=== PATIENT | male | born 1945 | race American Indian/Alaskan Native ===

== ENCOUNTER 2016-07-01 09:12 | Inpatient (IN) | payer MEDICARE, OTHER ==
--- NOTE | 2016-07-01 09:45 | Event Note ---
Date: 07/01/16 Patient presents to the ER with left upper quadrant and epigastric discomfort, and nausea. No diaphoresis. Currently no active vomiting. Physical exam unremarkable. EKG morphological abnormal, suggesting left bundle branch block, does not meet Sgarbarossa CRITERIA for STEMI. EKG was transmitted to center director, Dr. Dunn, who agrees that patient does not meet criteria for emergent activation of [employer]. Patient walking around the waiting room without distress, clinically appears very well. Laboratory studies, X RAY of the chest are ordered Patient does not know if these had a history of left bundle-branch block in the past. Typically follows at the [facility] Vital Signs 07/01/16 09:25 Temperature 97.7 F Pulse Rate 110 H Respiratory 20 Rate Blood Pressure 106/79 O2 Sat by Pulse 96 Oximetry
[2016-07-01 09:47] LABS: Basophils % (Auto) 0.2 % (0.0-1.8); Eosinophils % (Auto) 0.1 % (0.0-4.3); Hematocrit 52.5 % (35.5-45.6); Hemoglobin 17.6 gm/dl (11.8-15.2); Mean Corpuscular HGB Conc 34 % (32-34); Mean Corpuscular Hemoglobin 31 pg (28-32); Mean Corpuscular Volume 91 fl (84-94); Platelet Count 325 K/mm3 (140-440); Red Blood Count 5.76 M/mm3 (3.65-5.03); Red Cell Distribution Width 14.7 % (13.2-15.2); White Blood Count 7.9 K/mm3 (4.5-11.0)
[2016-07-01 10:01] LABS: INR 1.01 (0.87-1.13)
[2016-07-01 10:03] LABS: Creatine Kinase MB 4.3 ng/mL (0.0-4.0)
[2016-07-01 10:05] LABS: Alanine Aminotransferase 63 units/L (7-56); Alkaline Phosphatase 86 units/L (35-129); Anion Gap 28 mmol/L; Bilirubin,Total 0.6 mg/dL (0.1-1.2); Blood Urea Nitrogen 28 mg/dL (9-20); Calcium 10.5 mg/dL (8.4-10.2); Carbon Dioxide 22 mmol/L (22-30); Chloride 90.9 mmol/L (98-107); Creatine Kinase 82 units/L (55-170); Glucose 233 mg/dL (75-100); Potassium 4.6 mmol/L (3.6-5.0); Sodium 136 mmol/L (137-145); Total Protein 8.9 g/dL (6.3-8.2)
--- NOTE | 2016-07-01 10:21 | XRay Report ---
ROUTINE CHEST, TWO VIEWS: HISTORY: chest pain. The trachea, heart, mediastinal contour, lung singh and bony thorax are unremarkable. IMPRESSION: Unremarkable chest x-ray.
[2016-07-01 10:49] LABS: Albumin 4.6 g/dL (3.9-5); Albumin/Globulin Ratio 1.1 %
[2016-07-01] MEDS ORDERED: MORPHINE IV ONE (15:56)
[2016-07-01] MEDS ORDERED: NACL 0.9% 1000 ML 1,000 ML IV ONE (15:56)
[2016-07-01] MEDS ORDERED: BABY ASPIRIN PO ONE (15:56)
[2016-07-01] MEDS ORDERED: PROTONIX IV ONE (15:56)
[2016-07-01] MEDS ORDERED: ZOFRAN IV ONE (15:56)
--- NOTE | 2016-07-01 15:56 | Emergency Department Report ---
HPI - General Chief Complaint: Chest Pain Time Seen by Provider: 07/01/16 15:54 - HPI HPI: The patient is a 71-year-old male who presents for evaluation of chest pain. The patient reports chest pain for the past 22 hours, constant since onset, 9/ 10 in severity, pressure-like in quality, midsternal in location. He also reports multiple episodes of intractable nausea and vomiting for the past one day. The patient denies fever, dyspnea, syncope, hemoptysis, unilateral leg swelling, oral contraceptive use, recent immobilization, history of DVT or PE, recent cancer. ED Past Medical Hx - Past Medical History Hx Hypertension: Yes Hx Diabetes: Yes - Social History Smoking Status: Current Every Day Smoker Substance Use Type: Alcohol ED Review of Systems ROS: Stated complaint: CHEST PAIN/ZANDRA Other details as noted in HPI Constitutional: denies: fever ENT: denies: throat or neck pain Respiratory: denies: cough, shortness of breath Cardiovascular: reports chest pain Endocrine: denies unexplained weight loss or gain Gastrointestinal: denies: abdominal pain, nausea Genitourinary: denies: dysuria Musculoskeletal: denies: leg swelling Skin: denies: rash Neurological: denies: headache Hematological/Lymphatic: denies: easy bleeding or easy bruising Psych: denies sadness or hopelessness Physical Exam - Physical Exam Vital Signs: Vital Signs 07/01/16 09:25 Temperature 97.7 F Pulse Rate 110 H Respiratory 20 Rate Blood Pressure 106/79 O2 Sat by Pulse 96 Oximetry Physical Exam: General: well-nourished, well-developed, no acute distress Head: Normocephalic, atraumatic Eyes: normal sclera ENT: Mucous membranes are pale and dry Neck: No neck stiffness, no cervical adenopathy Respiratory: Breath sounds equal bilaterally, no wheezing, rales, or rhonchi Cardio: S1 and S2 present, no murmurs, rubs, gallops, capillary refill is delayed Abdomen: Normoactive bowel sounds, soft abdomen, no rigidity, no guarding or rebound tenderness Chest WALL/Back: No tenderness to palpation of the chest wall, no CVA tenderness with percussion Musc: No pitting edema Skin: No rash Neuro: no facial drooping, normal speech Psych: Normal affect ED Course Vital Signs 07/01/16 09:25 Temperature 97.7 F Pulse Rate 110 H Respiratory 20 Rate Blood Pressure 106/79 O2 Sat by Pulse 96 Oximetry ED Medical Decision Making - Lab Data Result diagrams: 07/01/16 09:36 07/01/16 09:36 - Medical Decision Making The patient was seen and examined by myself. The patient is placed on a equipment monitor phototypesetting and continuous pulse ox. On initial evaluation, the patient was found to be in no distress. Evaluation orders were placed. EKG exhibits left bundle branch block, not meeting Scarbossa's criteria. The patient is given 1 L normal saline fluid bolus for treatment of dehydration. X-ray of the chest is negative for acute cardiopulmonary disease process. Lab results reveal mildly elevated creatinine level of 2, elevated glucose, and elevated RBC, hemoglobin and hematocrit, consistent with hemoconcentration and exam findings of dehydration, and otherwise labs were grossly unremarkable including normal troponin level. The on-call hospitalist service was contacted. They agreed to admit the patient for further treatment and close monitoring. The ED admit order was placed. The patient was admitted in guarded condition. Critical care attestation.: If time is entered above; I have spent that time in minutes in the direct care of this critically ill patient, excluding procedure time. ED Disposition Clinical Impression: Acute chest pain, Acute hyperglycemia, Dehydration Acute renal failure Qualifiers: Acute renal failure type: unspecified Qualified Code(s): N17.9 - Acute kidney failure, unspecified Disposition: OP ADMITTED IP TO THIS HOSP Is pt being admited?: Yes Does the pt Need Aspirin: Yes Condition: Serious Time of Disposition: 15:55
--- NOTE | 2016-07-01 16:07 | Admit Criteria Form ---
Admission Criteria Documentation: CHEST PAIN Clinical Indications for Admission to Inpatient Care (Place 'X' for any and all applicable criteria): Admission is indicated for chest pain and ANY ONE of the following(1)(2)(3)(4)(5 ): [ ]I. Angina with acute coronary syndrome (Also use Myocardial Infarction or Angina guideline) [ ]II. Hemodynamic instability [ ]III. Angina needing acute intervention as indicated by ALL of the following( 11)(12): [ ]a) Unstable angina is present as indicated by angina that is ANY ONE of the following: [ ]i) New onset [ ]ii) Nocturnal [ ]iii) Prolonged at rest [ ]iv) Progressive [ ]b) Angina warrants acute intervention as indicated by ANY ONE of the following: [ ]i) Recurrent angina (e.g, not responding as previously to treatment) [ ]ii) Angina at rest or with low-level activities despite initial medical therapy [ ]iii) New or presumably new ST-segment depression on ECG [ ]iv) Signs or symptoms of heart failure (eg, dyspnea, pulmonary edema) [ ]v) New or worsening mitral regurgitation [ ]vi) Hemodynamic instability [ ]vii) Dangerous arrhythmia (eg, sustained ventricular tachycardia) [ ]viii) History of percutaneous coronary intervention within 6 months [ ]ix) History of coronary artery bypass graft surgery [ ]x) DOMINICK risk score of 2 or greater[A] [ ]xi) History of Diabetes(14) [ ]xii) High-risk cardiac ischemia findings on noninvasive testing (e.g, echocardiogram, treadmill testing, nuclear scan) [ ]xiii) Chronic renal insufficiency (ie, estimated GFR less than 60 mL/min/1.732m) [ ]xiv) Left ventricular ejection fraction less than 40% [ ]IV. Evidence of TX (eg, cardiac biomarkers positive, ST-segment elevation on ECG) also use Myocardial Infarction Criteria Form. [ ]V. Pulmonary edema [ ]. Respiratory distress [ ]VII. Chest pain indicative of serious diagnosis other than coronary artery disease (eg, aortic dissection) [ ]VIII. Contraindications and/or Inappropriate clinical situations for Observational Care in patients with Chest Pain, when ANY ONE of the following is required: [ ]a) Patient with risk factor for pulmonary embolism, acute coronary syndrome and myocardial infarction (18) [ ]b) Patient with Pulmonary embolism require an average LOS of 4.3 days, therefore emergency department observation management is inappropriate 18,23 [ ]c) Painful condition/s in the elderly, have the highest rate of recidivism after emergency department observation management (10.8%) 20,21,22 [ ]d) Elevated cardiac biomarker requires intensive and exhaustive care (19) [X ]IX. General contraindications and/or Inappropriate clinical situations for Observational Care in patients with Chest Pain, when ANY ONE of the following is required: [X ]a) Prediction of prolongation of LOS based on ANY ONE of the following may be considered as a contraindication for observational care 2, 3, 4, 5, 6, 7, 8, 9, 10, 11 [ X]i) Age > 65 yrs. [ ]ii) Patient arriving by ambulance [ ]iii) Patient with high acuity [ ]iv) Patient requiring vital sign monitoring [ ]v) Patient on IV medication [ ]b) Systolic blood pressures 180mmHg 3,12 [ ]c) Patient with altered mental status including delirium and other alteration of consciousness, (3) [ ]d) Patient whose discharge disposition will be to a correction home or rehabilitation home should not be managed in Emergency Department Observation Unit. CMS rule requires 3 days hospital stay before such placement. 3,13 [ ]e) Patient with failure to thrive due to broad array of etiologies 3,16,17 [ ]f) Inability to ambulate 3,14 Extended stay beyond goal length of stay may be needed for (1)(28): [ ]a) Specific condition diagnosed after evaluation (eg, pulmonary embolism, aortic dissection) [ ]b) Unstable angina [ ]c) Continued suspicion of acute coronary syndrome with inability to complete needed cardiac evaluation (eg, patient clinically unable to undergo stress testing) [ ]d) Myocardial infarction (Contents from ANGINA and CHEST PAIN clinical indications for admission to inpatient care have been integrated in this form) The original [employer] content created by [employer] has been revised. The portions of the content which have been revised are identified through the use of italic text or in bold, and [facility] [employer] has neither reviewed nor approved the modified material. All other unmodified content is copyright [employer]. Please see references footnoted in the original [facility] edition 2016 Admission Criteria Met: Yes
--- NOTE | 2016-07-01 17:49 | History and Physical Report ---
History of Present Illness Date of examination: 07/01/16 Date of admission: 07/01/2016 Chief complaint: L side CP since yesterday History of present illness: 71 y/o male comes in for L sided chest pain since yesterday.Chest pain dull in nature 6/10 intensity.Non radiating.Localized to precordium. No diaphoresis or SOB.No palpitations.No fever or Has HTN and [id number].No recent long travel.Has HTN and T2DM Past History Past Medical History: diabetes, hypertension Past Surgical History: No surgical history Social history: lives with family, smoking (1 ppd) Family history: hypertension Medications and Allergies Allergies Allergy/AdvReac Type Severity Reaction Status Date / Time No Known Allergies Allergy Unverified 07/01/16 09:31 Review of Systems All systems: negative Constitutional: no weight loss, no weight gain, no fever, no chills Ears, nose, mouth and throat: no nasal congestion, no nasal discharge, no sore throat, no odynophagia Cardiovascular: chest pain, high blood pressure, no orthopnea, no palpitations, no rapid/irregular heart beat, no edema, no syncope, no lightheadedness, no shortness of breath, no dyspnea on exertion, no leg edema, no decreased exercise tolerance Respiratory: no cough with sputum, no shortness of breath, no dyspnea on exertion, no congestion, no wheezing Gastrointestinal: no abdominal pain, no nausea, no vomiting, no diarrhea, no constipation, no hematemesis, no coffee ground emesis Genitourinary Male: no dysuria, no hematuria, no flank pain, no discharge, no urinary frequency, no urinary hesitancy Musculoskeletal: no neck stiffness, no neck pain Integumentary: no rash, no pruritis, no redness, no sores Neurological: no head injury, no seizures, no syncope Psychiatric: no anxiety, no depression Endocrine: no cold intolerance, no heat intolerance, no polyphagia, no polydipsia, no polyuria Hematologic/Lymphatic: no easy bruising Allergic/Immunologic: no urticaria, no allergic rhinitis, no wheezing Exam - Constitutional Vitals: Temp Pulse Resp BP Pulse Ox 97.7 F 95 H 16 130/77 94 07/01/16 09:25 07/01/16 16:15 07/01/16 16:48 07/01/16 16:15 07/01/16 16:15 General appearance: Present: no acute distress, well-nourished - EENT Eyes: Present: PERRL ENT: hearing intact, clear oral mucosa - Neck Neck: Present: supple, normal ROM - Respiratory Respiratory effort: normal Respiratory: bilateral: CTA - Cardiovascular Heart Sounds: Present: S1 & S2. Absent: rub, click - Extremities Extremities: pulses symmetrical, No edema Peripheral Pulses: within normal limits - Abdominal General gastrointestinal: Present: soft, non-tender, non-distended, normal bowel sounds Male genitourinary: Present: normal - Integumentary Integumentary: Present: clear, warm, dry - Musculoskeletal Musculoskeletal: gait normal, strength equal bilaterally - Psychiatric Psychiatric: appropriate mood/affect, intact judgment & insight - Neurologic Neurologic: CNII-XII intact, moves all extremities - Allied Health Allied health notes reviewed: nursing Results - Labs CBC & Chem 7: 07/02/16 05:30 07/02/16 05:30 Labs: Laboratory Last Values ED course: The patient is placed on a gre tutor and continuous pulse ox. On initial evaluation, the patient was found to be in no distress. Evaluation orders were placed. EKG exhibits left bundle branch block. The patient is given 1 L normal saline fluid bolus for treatment of dehydration. X-ray of the chest is negative for acute cardiopulmonary disease process. Lab results reveal mildly elevated creatinine level of 2, elevated glucose, and elevated RBC, hemoglobin and hematocrit, consistent with hemoconcentration and exam findings of dehydration, and otherwise labs were grossly unremarkable including normal troponin level. Critical care attestation.: If time is entered above; I have spent that time in minutes in the direct care of this critically ill patient, excluding procedure time. WBC 7.9 K/mm3 (4.5-11.0) 07/01/16 09:36 RBC 5.76 M/mm3 (3.65-5.03) H 07/01/16 09:36 Hgb 17.6 gm/dl (11.8-15.2) H 07/01/16 09:36 Hct 52.5 % (35.5-45.6) H 07/01/16 09:36 MCV 91 fl (84-94) 07/01/16 09:36 MCH 31 pg (28-32) 07/01/16 09:36 MCHC 34 % (32-34) 07/01/16 09:36 RDW 14.7 % (13.2-15.2) 07/01/16 09:36 Plt Count 325 K/mm3 (140-440) 07/01/16 09:36 Lymph % (Auto) 13.8 % (13.4-35.0) 07/01/16 09:36 Christian % (Auto) 7.5 % (0.0-7.3) H 07/01/16 09:36 Eos % (Auto) 0.1 % (0.0-4.3) 07/01/16 09:36 Baso % (Auto) 0.2 % (0.0-1.8) 07/01/16 09:36 Lymph # 1.1 K/mm3 (1.2-5.4) L 07/01/16 09:36 Christian # 0.6 K/mm3 (0.0-0.8) 07/01/16 09:36 Eos # 0.0 K/mm3 (0.0-0.4) 07/01/16 09:36 Baso # 0.0 K/mm3 (0.0-0.1) 07/01/16 09:36 Seg Neutrophils % 78.4 % (40.0-70.0) H 07/01/16 09:36 Seg Neutrophils # 6.2 K/mm3 (1.8-7.7) 07/01/16 09:36 PT 13.2 Sec. (12.2-14.9) 07/01/16 09:41 INR 1.01 (0.87-1.13) 07/01/16 09:41 Sodium 136 mmol/L (137-145) L 07/01/16 09:36 Potassium 4.6 mmol/L (3.6-5.0) 07/01/16 09:36 Chloride 90.9 mmol/L (98-107) L 07/01/16 09:36 Carbon Dioxide 22 mmol/L (22-30) 07/01/16 09:36 Anion Gap 28 mmol/L 07/01/16 09:36 BUN 28 mg/dL (9-20) H 07/01/16 09:36 Creatinine 2.0 mg/dL (0.8-1.5) H 07/01/16 09:36 Estimated GFR 40 ml/min 07/01/16 09:36 BUN/Creatinine Ratio 14.00 % 07/01/16 09:36 Glucose 233 mg/dL (75-100) H 07/01/16 09:36 Calcium 10.5 mg/dL (8.4-10.2) H 07/01/16 09:36 Total Bilirubin 0.6 mg/dL (0.1-1.2) 07/01/16 09:36 AST 21 units/L (5-40) 07/01/16 09:36 ALT 63 units/L (7-56) H 07/01/16 09:36 Alkaline Phosphatase 86 units/L (35-129) 07/01/16 09:36 Total Creatine Kinase 82 units/L (55-170) 07/01/16 09:36 CK-MB (CK-2) 4.3 ng/mL (0.0-4.0) H 07/01/16 09:36 CK-MB (CK-2) Rel Index 5.2 (0-4) H 07/01/16 09:36 Troponin T < 0.010 ng/mL (0.00-0.029) 07/01/16 09:36 NT-Pro-B Natriuret Pep 246.7 pg/mL (0-900) 07/01/16 15:57 Total Protein 8.9 g/dL (6.3-8.2) H 07/01/16 09:36 Albumin 4.6 g/dL (3.9-5) 07/01/16 09:36 Albumin/Globulin Ratio 1.1 % 07/01/16 09:36 Lipase 69 units/L (13-60) H 07/01/16 09:36 Short CBC 07/01/16 07/02/16 Range/Units 09:36 05:30 WBC 7.9 3.6 L (4.5-11.0) K/mm3 Hgb 17.6 H 15.0 (11.8-15.2) gm/dl Hct 52.5 H 45.3 D (35.5-45.6) % Plt Count 325 227 (140-440) K/mm3 BMP 07/01/16 07/02/16 09:36 05:30 Sodium 136 L 134 L Potassium 4.6 4.1 Chloride 90.9 L 93.2 L Carbon Dioxide 22 25 BUN 28 H 39 H Creatinine 2.0 H 1.8 H Glucose 233 H 119 H Calcium 10.5 H 9.4 Cardiac Enzymes 07/01/16 07/01/16 07/01/16 Range/Units 09:36 18:09 23:32 Total Creatine Kinase 82 81 80 (55-170) units/L CK-MB (CK-2) 4.3 H 5.4 H 4.7 H (0.0-4.0) ng/mL Troponin T < 0.010 < 0.010 < 0.010 (0.00-0.029) ng/mL Liver Function 07/01/16 07/02/16 Range/Units 09:36 05:30 Total Bilirubin 0.6 0.9 (0.1-1.2) mg/dL AST 21 15 (5-40) units/L ALT 63 H 37 (7-56) units/L Alkaline Phosphatase 86 65 (35-129) units/L Albumin 4.6 3.9 (3.9-5) g/dL - Imaging and Cardiology EKG: report reviewed (LBB block) Chest x-ray: report reviewed (NAF) Assessment and Plan Advance Directives: Yes (Full code) VTE prophylaxis?: Chemical (Lovenox 40 sq qd) Plan of care discussed with patient/family: Yes - Patient Problems (1) Acute chest pain Current Visit: Yes Status: Acute Plan to address problem: Chest pain protocol Serial cardiac enzymes and Lexiscan in AM (2) Acute renal failure Current Visit: Yes Status: Acute Qualifiers: Acute renal failure type: unspecified Qualified Code(s): N17.9 - Acute kidney failure, unspecified Plan to address problem: IV fluids for now (3) HTN (hypertension) Current Visit: Yes Status: Chronic Qualifiers: Hypertension type: essential hypertension Qualified Code(s): I10 - Essential (primary) hypertension Plan to address problem: Patient not on any antihypertensive.Resume anti hypertensives if BP goes up. 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
[2016-07-01] MEDS ORDERED: DULCOLAX PR PRN ×2 (17:50→17:53)
[2016-07-01] MEDS ORDERED: TYLENOL PO PRN ×2 (17:50→17:53)
[2016-07-01] MEDS ORDERED: ZOFRAN IV PRN (17:53)
[2016-07-01] MEDS ORDERED: MILK OF MAGNESIA PO PRN (17:53)
[2016-07-01] MEDS ORDERED: SODIUM CHLORIDE FLUSH SYRINGE 10 ML IV PRN (17:55)
[2016-07-01 18:57] LABS: Creatine Kinase MB 5.4 ng/mL (0.0-4.0)
[2016-07-01 18:58] LABS: Creatine Kinase 81 units/L (55-170)
[2016-07-02 00:05] LABS: Creatine Kinase MB 4.7 ng/mL (0.0-4.0)
[2016-07-02 00:06] LABS: Creatine Kinase 80 units/L (55-170)
[2016-07-02 06:16] LABS: Hematocrit 45.3 % (35.5-45.6); Mean Corpuscular HGB Conc 33 % (32-34); Mean Corpuscular Hemoglobin 31 pg (28-32); Mean Corpuscular Volume 93 fl (84-94); Platelet Count 227 K/mm3 (140-440); Red Cell Distribution Width 14.6 % (13.2-15.2); White Blood Count 3.6 K/mm3 (4.5-11.0)
[2016-07-02 06:37] LABS: Albumin 3.9 g/dL (3.9-5); Albumin/Globulin Ratio 1.1 %; BUN/Creatinine Ratio 21.66; Bilirubin,Total 0.9 mg/dL (0.1-1.2); Calcium 9.4 mg/dL (8.4-10.2); Chloride 93.2 mmol/L (98-107); Potassium 4.1 mmol/L (3.6-5.0); Total Protein 7.3 g/dL (6.3-8.2)
[2016-07-02 07:05] LABS: Anisocytosis 1+; Basophils % (Manual) 0 % (0.0-1.8); Blastocytes % (Manual) 0 %; Diff Status Complete
[2016-07-02] MEDS: ZOFRAN IV PRN (07:49)
[2016-07-02] MEDS ORDERED: LEXISCAN IV ONE ×2 (08:34→09:00)
[2016-07-02] MEDS: GLUCOTROL XL PO SCH (10:21)
[2016-07-02] MEDS: MILK OF MAGNESIA PO PRN (10:21)
[2016-07-02] MEDS: PERCOCET 5/325 PO PRN (12:29)
[2016-07-02] MEDS: NOVOLOG SUB-Q SCH ×3 (13:03→22:59)
--- NOTE | 2016-07-02 14:03 | XRay Report ---
ABDOMEN RADIOGRAPHS INDICATION: Abdominal distention. COMPARISON: None similar. FINDINGS: Frontal abdominal radiographs demonstrate air-containing small bowel loops dilated up to 4.1 cm caliber. Nonobstructive colonic pattern, where seen. No focal suspicious calcifications, pneumatosis or pneumoperitoneum. Right more than left basilar atelectasis. Intact bones. EKG leads. CONCLUSION: Small bowel obstruction and few other findings, as above. Thank you for the opportunity to participate in this patient's care.
--- NOTE | 2016-07-02 14:27 | Progress Note ---
Assessment and Plan Assessment and plan: (1) Acute chest pain Current Visit: Yes Status: Acute Plan to address problem: Chest pain protocol followed Lexiscan in AM was normal could be coming from SBO (2) Acute small bowel obstruction Current Visit: Yes Status: Acute Qualifiers: Acute renal failure type: unspecified Qualified Code(s): N17.9 - Acute kidney failure, unspecified Plan to address problem: IV fluids for now keep NPO, NG suction Discussed with surgery, and recommended to continue current conservative mx (3) HTN (hypertension) Current Visit: Yes Status: Chronic Qualifiers: Hypertension type: essential hypertension Qualified Code(s): I10 - Essential (primary) hypertension Plan to address problem: cont to monitor BP q shift (4) T2DM (type 2 diabetes mellitus) Current Visit: Yes Status: Chronic Qualifiers: Diabetes mellitus complication status: without complication Diabetes mellitus complication detail: D Diabetic retinopathy severity: D Proliferative retinopathy type: P Diabetes mellitus macular edema: D Diabetes mellitus shelter insulin use: D Laterality: L Chronic kidney disease stage: C Plan to address problem: SSI for now, as he will be NPO (5) Acute renal failure Current Visit: Yes Status: Acute Qualifiers: Acute renal failure type: unspecified Qualified Code(s): N17.9 - Acute kidney failure, unspecified Plan to address problem: IV fluids for now, Cr level improving (6) DVT prophylaxis Current Visit: Yes Status: Acute Plan to address problem: start on heparin History Interval history: Patient seen and examined. Medical records and medication list reviewed. No acute event overnight noted by the RN. Stress test was normal this morning Patient complains of abdominal pain and bloating. He did not have any bowel movement since Friday He is unable to eat anything because of nausea and abdominal bloating Abdominal XRY showed SBO Discussed plan of care at bedside with patient. Hospitalist Physical - Physical exam Narrative exam: GENERAL: The male lying on bed appeared to be in moderate discomfort. HEENT: Normocephalic. Atraumatic. No conjunctival congestion or icterus. Patient has moist mucous membranes. NECK: Supple. Trachea midline. CHEST/LUNGS: Clear to auscultated bilaterally, breathing nonlabored. No wheezes crackles or rhonchi. HEART/CARDIOVASCULAR: Regular in rate and rhythm. S1 and S2 positive. ABDOMEN: Abdomen is distended, tender. Patient has hyperactive bowel sounds. SKIN: There is no rash. Warm and dry. NEURO: No focal motor deficit. Follows command. MUSCULOSKELETAL: No joint effusion or tenderness. EXTRIMITY: No edema, no cyanosis or clubbing. PSYCH: Cooperative. - Constitutional Vitals: Temp Pulse Resp BP Pulse Ox 98.9 F 98 H 20 105/63 95 07/02/16 04:10 07/02/16 12:00 07/02/16 04:10 07/02/16 09:19 07/02/16 04:10 General appearance: Present: no acute distress, well-nourished Results - Labs CBC & Chem 7: 07/03/16 05:07 07/03/16 05:07 Labs: Laboratory Last Values WBC 3.6 K/mm3 (4.5-11.0) L 07/02/16 05:30 RBC 4.90 M/mm3 (3.65-5.03) 07/02/16 05:30 Hgb 15.0 gm/dl (11.8-15.2) 07/02/16 05:30 Hct 45.3 % (35.5-45.6) D 07/02/16 05:30 MCV 93 fl (84-94) 07/02/16 05:30 MCH 31 pg (28-32) 07/02/16 05:30 MCHC 33 % (32-34) 07/02/16 05:30 RDW 14.6 % (13.2-15.2) 07/02/16 05:30 Plt Count 227 K/mm3 (140-440) 07/02/16 05:30 Lymph % (Auto) 13.8 % (13.4-35.0) 07/01/16 09:36 [place] % (Auto) Tugboat Operator 07/02/16 05:30 Eos % (Auto) 0.1 % (0.0-4.3) 07/01/16 09:36 Baso % (Auto) 0.2 % (0.0-1.8) 07/01/16 09:36 Lymph # 1.1 K/mm3 (1.2-5.4) L 07/01/16 09:36 [place] # 0.6 K/mm3 (0.0-0.8) 07/01/16 09:36 Eos # 0.0 K/mm3 (0.0-0.4) 07/01/16 09:36 Baso # 0.0 K/mm3 (0.0-0.1) 07/01/16 09:36 Add Manual Diff Complete 07/02/16 05:30 Total Counted 100 07/02/16 05:30 Seg Neutrophils % 78.4 % (40.0-70.0) H 07/01/16 09:36 Seg Neuts % (Manual) 16.0 % (40.0-70.0) L 07/02/16 05:30 Band Neutrophils % 42.0 % 07/02/16 05:30 Lymphocytes % (Manual) 27.0 % (13.4-35.0) 07/02/16 05:30 Reactive Lymphs % (Man) 0 % 07/02/16 05:30 Monocytes % (Manual) 13.0 % (0.0-7.3) H 07/02/16 05:30 Eosinophils % (Manual) 2.0 % (0.0-4.3) 07/02/16 05:30 Basophils % (Manual) 0 % (0.0-1.8) 07/02/16 05:30 Metamyelocytes % 0 % 07/02/16 05:30 Myelocytes % 0 % 07/02/16 05:30 Promyelocytes % 0 % 07/02/16 05:30 Blast Cells % 0 % 07/02/16 05:30 Nucleated RBC % Not Reportable 07/02/16 05:30 Seg Neutrophils # 6.2 K/mm3 (1.8-7.7) 07/01/16 09:36 Seg Neutrophils # Man 0.6 K/mm3 (1.8-7.7) L 07/02/16 05:30 Band Neutrophils # 1.5 K/mm3 07/02/16 05:30 Lymphocytes # (Manual) 1.0 K/mm3 (1.2-5.4) L 07/02/16 05:30 Abs React Lymphs (Man) 0.0 K/mm3 07/02/16 05:30 Monocytes # (Manual) 0.5 K/mm3 (0.0-0.8) 07/02/16 05:30 Eosinophils # (Manual) 0.1 K/mm3 (0.0-0.4) 07/02/16 05:30 Basophils # (Manual) 0.0 K/mm3 (0.0-0.1) 07/02/16 05:30 Metamyelocytes # 0.0 K/mm3 07/02/16 05:30 Myelocytes # 0.0 K/mm3 07/02/16 05:30 Promyelocytes # 0.0 K/mm3 07/02/16 05:30 Blast Cells # 0.0 K/mm3 07/02/16 05:30 WBC Morphology Not Reportable 07/02/16 05:30 Hypersegmented Neuts Not Reportable 07/02/16 05:30 Hyposegmented Neuts Not Reportable 07/02/16 05:30 Hypogranular Neuts Not Reportable 07/02/16 05:30 Smudge Cells Not Reportable 07/02/16 05:30 Toxic Granulation Not Reportable 07/02/16 05:30 Toxic Vacuolation Not Reportable 07/02/16 05:30 Dohle Bodies Not Reportable 07/02/16 05:30 Pelger-Huet Anomaly Not Reportable 07/02/16 05:30 Binh Rods Not Reportable 07/02/16 05:30 Platelet Estimate Appears normal 07/02/16 05:30 Clumped Platelets Not Reportable 07/02/16 05:30 Plt Clumps, EDTA Not Reportable 07/02/16 05:30 Large Platelets Not Reportable 07/02/16 05:30 Giant Platelets Not Reportable 07/02/16 05:30 Platelet Satelliting Not Reportable 07/02/16 05:30 Plt Morphology Comment Not Reportable 07/02/16 05:30 RBC Morphology Not Reportable 07/02/16 05:30 Dimorphic RBCs Not Reportable 07/02/16 05:30 Polychromasia Not Reportable 07/02/16 05:30 Hypochromasia Not Reportable 07/02/16 05:30 Poikilocytosis Not Reportable 07/02/16 05:30 Anisocytosis 1+ 07/02/16 05:30 Microcytosis Not Reportable 07/02/16 05:30 Macrocytosis Not Reportable 07/02/16 05:30 Spherocytes Not Reportable 07/02/16 05:30 Pappenheimer Bodies Not Reportable 07/02/16 05:30 Sickle Cells Not Reportable 07/02/16 05:30 Target Cells Not Reportable 07/02/16 05:30 Tear Drop Cells Not Reportable 07/02/16 05:30 Ovalocytes Not Reportable 07/02/16 05:30 Helmet Cells Not Reportable 07/02/16 05:30 [place] Bodies Not Reportable 07/02/16 05:30 [place] Rings Not Reportable 07/02/16 05:30 [place] Cells Not Reportable 07/02/16 05:30 Bite Cells Not Reportable 07/02/16 05:30 Crenated Cell Not Reportable 07/02/16 05:30 Elliptocytes Not Reportable 07/02/16 05:30 Acanthocytes (Spur) Not Reportable 07/02/16 05:30 Rouleaux Not Reportable 07/02/16 05:30 Hemoglobin C Crystals Not Reportable 07/02/16 05:30 Schistocytes Not Reportable 07/02/16 05:30 Malaria parasites Not Reportable 07/02/16 05:30 Kristofer Bodies Not Reportable 07/02/16 05:30 Hem Pathologist Commnt No 07/02/16 05:30 PT 13.2 Sec. (12.2-14.9) 07/01/16 09:41 INR 1.01 (0.87-1.13) 07/01/16 09:41 Sodium 134 mmol/L (137-145) L 07/02/16 05:30 Potassium 4.1 mmol/L (3.6-5.0) 07/02/16 05:30 Chloride 93.2 mmol/L (98-107) L 07/02/16 05:30 Carbon Dioxide 25 mmol/L (22-30) 07/02/16 05:30 Anion Gap 20 mmol/L 07/02/16 05:30 BUN 39 mg/dL (9-20) H 07/02/16 05:30 Creatinine 1.8 mg/dL (0.8-1.5) H 07/02/16 05:30 Estimated GFR 45 ml/min 07/02/16 05:30 BUN/Creatinine Ratio 21.66 % 07/02/16 05:30 Glucose 119 mg/dL (75-100) H 07/02/16 05:30 Calcium 9.4 mg/dL (8.4-10.2) 07/02/16 05:30 Total Bilirubin 0.9 mg/dL (0.1-1.2) 07/02/16 05:30 AST 15 units/L (5-40) 07/02/16 05:30 ALT 37 units/L (7-56) 07/02/16 05:30 Alkaline Phosphatase 65 units/L (35-129) 07/02/16 05:30 Total Creatine Kinase 80 units/L (55-170) 07/01/16 23:32 CK-MB (CK-2) 4.7 ng/mL (0.0-4.0) H 07/01/16 23:32 CK-MB (CK-2) Rel Index 5.8 (0-4) H 07/01/16 23:32 Troponin T < 0.010 ng/mL (0.00-0.029) 07/01/16 23:32 NT-Pro-B Natriuret Pep 246.7 pg/mL (0-900) 07/01/16 15:57 Total Protein 7.3 g/dL (6.3-8.2) 07/02/16 05:30 Albumin 3.9 g/dL (3.9-5) 07/02/16 05:30 Albumin/Globulin Ratio 1.1 % 07/02/16 05:30 Lipase 69 units/L (13-60) H 07/01/16 09:36 - Imaging and Cardiology Abdominal x-ray: report reviewed (SBO)
[2016-07-02 16:41] LABS: Phosphorous 3.7 mg/dL (2.5-4.5)
--- NOTE | 2016-07-02 18:25 | XRay Report ---
FINAL REPORT EXAM: XR ABDOMEN 1V AP HISTORY: tube placement TECHNIQUE: AP abdominal radiograph. PRIORS: None. FINDINGS: An enteric tube is present with the tip lying in the stomach. Severely dilated loops of bowel are seen in the upper abdomen. Note that right aspect of the abdomen and pelvis were not included on the image. No organomegaly or masses. No abnormal calcifications. No acute osseous abnormality. Mild bibasilar atelectasis is seen. IMPRESSION: 1. Enteric tube tip lying in the stomach. 2. Findings concerning for small bowel obstruction.
[2016-07-02] MEDS: D5W 1,000 ML IV SCH (19:31)
[2016-07-03] MEDS: D5W 1,000 ML IV SCH ×2 (04:28→14:34)
[2016-07-03] MEDS: ZOFRAN IV PRN (04:34)
[2016-07-03 05:42] LABS: Hematocrit 46.2 % (35.5-45.6); Hemoglobin 15.7 gm/dl (11.8-15.2); Mean Corpuscular HGB Conc 34 % (32-34); Mean Corpuscular Hemoglobin 31 pg (28-32); Mean Corpuscular Volume 91 fl (84-94); Platelet Count 283 K/mm3 (140-440); Red Cell Distribution Width 14.1 % (13.2-15.2); White Blood Count 3.9 K/mm3 (4.5-11.0)
[2016-07-03 06:03] LABS: Calcium 9.6 mg/dL (8.4-10.2); Chloride 83.6 mmol/L (98-107); Magnesium 2.3 mg/dL (1.7-2.3); Phosphorous 4.3 mg/dL (2.5-4.5); Potassium 3.6 mmol/L (3.6-5.0)
[2016-07-03 06:56] LABS: Anisocytosis RARE; Basophils % (Manual) 0 % (0.0-1.8); Blastocytes % (Manual) 0 %; Diff Status Complete
[2016-07-03] MEDS: NOVOLOG SUB-Q SCH ×4 (10:34→21:37)
[2016-07-03] MEDS: GLUCOTROL XL PO SCH (10:35)
--- NOTE | 2016-07-03 12:48 | Progress Note ---
Assessment and Plan Full consult dictated. 71 y/o male r/o sbo. no previous abd surgeries? Abd slightly firm but non tender. NG in place labs as below Abd series - r/o sbo stable rec - keep NPO NG suction IVF hydration ( dehydrated) will begin inserting mineral oil per NG f/u abd series in am Selected Entries 07/03/16 07/03/16 07/03/16 09:38 10:00 11:49 Temperature 99.0 F Pulse Rate 111 H Respiratory 18 Rate Blood Pressure 132/81 [Left Radial Artery] Laboratory Tests 07/02/16 07/02/16 07/03/16 05:30 16:16 05:07 WBC 3.9 L Hgb 15.7 H Hct 46.2 H Sodium 134 L Potassium 4.1 Chloride 93.2 L Carbon Dioxide 25 Anion Gap 20 BUN 39 H Creatinine 1.8 H Glucose 119 H Calcium 9.4 Magnesium 2.0 Amylase 22 L Lipase 21 Objective Vital Signs - 12hr 07/03/16 07/03/16 07/03/16 01:30 04:00 04:15 Temperature 97.6 F 98.0 F Pulse Rate 116 H Pulse Rate [ 107 H 111 H Left Radial] Respiratory 20 20 Rate Blood Pressure 136/82 130/86 [Left Radial Artery] O2 Sat by Pulse 95 97 Oximetry 07/03/16 07/03/16 07/03/16 09:38 10:00 11:49 Temperature 99.0 F Pulse Rate 111 H Pulse Rate [ 111 H Left Radial] Respiratory 18 18 Rate Blood Pressure 132/81 [Left Radial Artery] O2 Sat by Pulse 96 96 Oximetry - Labs 07/03/16 05:07 07/03/16 05:07 Diabetes panel 07/03/16 07/03/16 Range/Units 05:07 05:07 Carbon Dioxide 27 (22-30) mmol/L BUN 45 H (9-20) mg/dL Creatinine 1.5 (0.8-1.5) mg/dL Glucose 195 H (75-100) mg/dL Hemoglobin A1c 6.4 H (4-6) % Calcium 9.6 (8.4-10.2) mg/dL Calcium panel 07/02/16 07/03/16 Range/Units 16:16 05:07 Calcium 9.6 (8.4-10.2) mg/dL Phosphorus 3.7 4.3 (2.5-4.5) mg/dL Pituitary panel 07/03/16 Range/Units 05:07 Carbon Dioxide 27 (22-30) mmol/L BUN 45 H (9-20) mg/dL Creatinine 1.5 (0.8-1.5) mg/dL Glucose 195 H (75-100) mg/dL Calcium 9.6 (8.4-10.2) mg/dL Adrenal panel 07/03/16 Range/Units 05:07 Carbon Dioxide 27 (22-30) mmol/L BUN 45 H (9-20) mg/dL Creatinine 1.5 (0.8-1.5) mg/dL Glucose 195 H (75-100) mg/dL Calcium 9.6 (8.4-10.2) mg/dL
[2016-07-03] MEDS ORDERED: CEPACOL X STRENGTH MM PRN (12:54)
[2016-07-03] MEDS: MINERAL OIL PO SCH ×3 (14:35→21:35)
[2016-07-03] MEDS: HEPARIN SUB-Q SCH ×2 (15:28→21:35)
--- NOTE | 2016-07-03 17:28 | Progress Note ---
Assessment and Plan Assessment and plan: (1) Acute small bowel obstruction Current Visit: Yes Status: Acute Qualifiers: Acute renal failure type: unspecified Qualified Code(s): N17.9 - Acute kidney failure, unspecified Plan to address problem: IV fluids for now keep NPO, NG suction Discussed with surgery, and recommended to continue current conservative mx Abdominal series tomorrow morning (2) Acute chest pain Current Visit: Yes Status: Acute Plan to address problem: Chest pain protocol followed Lexiscan was normal could be coming from SBO (3) HTN (hypertension) Current Visit: Yes Status: Chronic Qualifiers: Hypertension type: essential hypertension Qualified Code(s): I10 - Essential (primary) hypertension Plan to address problem: cont to monitor BP q shift (4) T2DM (type 2 diabetes mellitus) Current Visit: Yes Status: Chronic Qualifiers: Diabetes mellitus complication status: without complication Diabetes mellitus complication detail: D Diabetic retinopathy severity: D Proliferative retinopathy type: P Diabetes mellitus macular edema: D Diabetes mellitus detention insulin use: D Laterality: L Chronic kidney disease stage: C Plan to address problem: SSI for now, as he is NPO (5) Acute renal failure Current Visit: Yes Status: Acute Qualifiers: Acute renal failure type: unspecified Qualified Code(s): N17.9 - Acute kidney failure, unspecified Plan to address problem: IV fluids for now, Cr level improving (6) DVT prophylaxis Current Visit: Yes Status: Acute Plan to address problem: Continue on heparin History Interval history: Patient seen and examined. Medical records and medication list reviewed. He did not have any bowel movement since Friday He is unable to eat anything because of nausea and abdominal bloating Abdominal XRY showed SBO, on NG suction now Denies any abdominal pain today, still no bowel movement Discussed plan of care at bedside with patient. Hospitalist Physical - Physical exam Narrative exam: GENERAL: The male lying on bed appeared to be in moderate discomfort. HEENT: Normocephalic. Atraumatic. No conjunctival congestion or icterus. Patient has moist mucous membranes. NG tube in place. NECK: Supple. Trachea midline. CHEST/LUNGS: Clear to auscultated bilaterally, breathing nonlabored. No wheezes crackles or rhonchi. HEART/CARDIOVASCULAR: Regular in rate and rhythm. S1 and S2 positive. ABDOMEN: Abdomen is nondistended nontender. Patient has been very hypoactive bowel sounds. SKIN: There is no rash. Warm and dry. NEURO: No focal motor deficit. Follows command. MUSCULOSKELETAL: No joint effusion or tenderness. EXTRIMITY: No edema, no cyanosis or clubbing. PSYCH: Cooperative. - Constitutional Vitals: Temp Pulse Resp BP Pulse Ox 99.0 F 111 H 18 132/81 96 07/03/16 09:38 07/03/16 11:49 07/03/16 10:00 07/03/16 09:38 07/03/16 10:00 General appearance: Present: no acute distress, well-nourished Results - Labs CBC & Chem 7: 07/03/16 05:07 07/03/16 05:07 Labs: Laboratory Last Values WBC 3.9 K/mm3 (4.5-11.0) L 07/03/16 05:07 RBC 5.10 M/mm3 (3.65-5.03) H 07/03/16 05:07 Hgb 15.7 gm/dl (11.8-15.2) H 07/03/16 05:07 Hct 46.2 % (35.5-45.6) H 07/03/16 05:07 MCV 91 fl (84-94) 07/03/16 05:07 MCH 31 pg (28-32) 07/03/16 05:07 MCHC 34 % (32-34) 07/03/16 05:07 RDW 14.1 % (13.2-15.2) 07/03/16 05:07 Plt Count 283 K/mm3 (140-440) 07/03/16 05:07 Lymph % (Auto) 13.8 % (13.4-35.0) 07/01/16 09:36 [place] % (Auto) [place] 07/03/16 05:07 Eos % (Auto) 0.1 % (0.0-4.3) 07/01/16 09:36 Baso % (Auto) 0.2 % (0.0-1.8) 07/01/16 09:36 Lymph # 1.1 K/mm3 (1.2-5.4) L 07/01/16 09:36 [place] # 0.6 K/mm3 (0.0-0.8) 07/01/16 09:36 Eos # 0.0 K/mm3 (0.0-0.4) 07/01/16 09:36 Baso # 0.0 K/mm3 (0.0-0.1) 07/01/16 09:36 Add Manual Diff Complete 07/03/16 05:07 Total Counted 100 07/03/16 05:07 Seg Neutrophils % 78.4 % (40.0-70.0) H 07/01/16 09:36 Seg Neuts % (Manual) 61.0 % (40.0-70.0) 07/03/16 05:07 Band Neutrophils % 1.0 % 07/03/16 05:07 Lymphocytes % (Manual) 21.0 % (13.4-35.0) 07/03/16 05:07 Reactive Lymphs % (Man) 0 % 07/03/16 05:07 Monocytes % (Manual) 16.0 % (0.0-7.3) H 07/03/16 05:07 Eosinophils % (Manual) 1.0 % (0.0-4.3) 07/03/16 05:07 Basophils % (Manual) 0 % (0.0-1.8) 07/03/16 05:07 Metamyelocytes % 0 % 07/03/16 05:07 Myelocytes % 0 % 07/03/16 05:07 Promyelocytes % 0 % 07/03/16 05:07 Blast Cells % 0 % 07/03/16 05:07 Nucleated RBC % Not Reportable 07/03/16 05:07 Seg Neutrophils # 6.2 K/mm3 (1.8-7.7) 07/01/16 09:36 Seg Neutrophils # Man 2.4 K/mm3 (1.8-7.7) 07/03/16 05:07 Band Neutrophils # 0.0 K/mm3 07/03/16 05:07 Lymphocytes # (Manual) 0.8 K/mm3 (1.2-5.4) L 07/03/16 05:07 Abs React Lymphs (Man) 0.0 K/mm3 07/03/16 05:07 Monocytes # (Manual) 0.6 K/mm3 (0.0-0.8) 07/03/16 05:07 Eosinophils # (Manual) 0.0 K/mm3 (0.0-0.4) 07/03/16 05:07 Basophils # (Manual) 0.0 K/mm3 (0.0-0.1) 07/03/16 05:07 Metamyelocytes # 0.0 K/mm3 07/03/16 05:07 Myelocytes # 0.0 K/mm3 07/03/16 05:07 Promyelocytes # 0.0 K/mm3 07/03/16 05:07 Blast Cells # 0.0 K/mm3 07/03/16 05:07 WBC Morphology Not Reportable 07/03/16 05:07 Hypersegmented Neuts Not Reportable 07/03/16 05:07 Hyposegmented Neuts Not Reportable 07/03/16 05:07 Hypogranular Neuts Not Reportable 07/03/16 05:07 Smudge Cells Not Reportable 07/03/16 05:07 Toxic Granulation Not Reportable 07/03/16 05:07 Toxic Vacuolation Not Reportable 07/03/16 05:07 Dohle Bodies Not Reportable 07/03/16 05:07 Pelger-Huet Anomaly Not Reportable 07/03/16 05:07 Binh Rods Not Reportable 07/03/16 05:07 Platelet Estimate Appears normal 07/03/16 05:07 Clumped Platelets Not Reportable 07/03/16 05:07 Plt Clumps, EDTA Not Reportable 07/03/16 05:07 Large Platelets Not Reportable 07/03/16 05:07 Giant Platelets Not Reportable 07/03/16 05:07 Platelet Satelliting Not Reportable 07/03/16 05:07 Plt Morphology Comment Not Reportable 07/03/16 05:07 RBC Morphology Not Reportable 07/03/16 05:07 Dimorphic RBCs Not Reportable 07/03/16 05:07 Polychromasia Not Reportable 07/03/16 05:07 Hypochromasia Not Reportable 07/03/16 05:07 Poikilocytosis Not Reportable 07/03/16 05:07 Anisocytosis Rare 07/03/16 05:07 Microcytosis Not Reportable 07/03/16 05:07 Macrocytosis Not Reportable 07/03/16 05:07 Spherocytes Not Reportable 07/03/16 05:07 Pappenheimer Bodies Not Reportable 07/03/16 05:07 Sickle Cells Not Reportable 07/03/16 05:07 Target Cells Not Reportable 07/03/16 05:07 Tear Drop Cells Not Reportable 07/03/16 05:07 Ovalocytes Not Reportable 07/03/16 05:07 Helmet Cells Not Reportable 07/03/16 05:07 Figuero[place] Bodies Not Reportable 07/03/16 05:07 [place] Rings Not Reportable 07/03/16 05:07 [place] Cells Not Reportable 07/03/16 05:07 Bite Cells Not Reportable 07/03/16 05:07 Crenated Cell Not Reportable 07/03/16 05:07 Elliptocytes Not Reportable 07/03/16 05:07 Acanthocytes (Spur) Not Reportable 07/03/16 05:07 Rouleaux Not Reportable 07/03/16 05:07 Hemoglobin C Crystals Not Reportable 07/03/16 05:07 Schistocytes Not Reportable 07/03/16 05:07 Malaria parasites Not Reportable 07/03/16 05:07 Kristofer Bodies Not Reportable 07/03/16 05:07 Hem Pathologist Commnt No 07/03/16 05:07 PT 13.2 Sec. (12.2-14.9) 07/01/16 09:41 INR 1.01 (0.87-1.13) 07/01/16 09:41 Sodium 134 mmol/L (137-145) L 07/02/16 05:30 Potassium 4.1 mmol/L (3.6-5.0) 07/02/16 05:30 Chloride 93.2 mmol/L (98-107) L 07/02/16 05:30 Carbon Dioxide 27 mmol/L (22-30) 07/03/16 05:07 Anion Gap 20 mmol/L 07/02/16 05:30 BUN 45 mg/dL (9-20) H 07/03/16 05:07 Creatinine 1.5 mg/dL (0.8-1.5) 07/03/16 05:07 Estimated GFR 56 ml/min 07/03/16 05:07 BUN/Creatinine Ratio 30.00 % 07/03/16 05:07 Glucose 195 mg/dL (75-100) H 07/03/16 05:07 POC Glucose 158 (70-105) H 07/03/16 12:17 Hemoglobin A1c 6.4 % (4-6) H 07/03/16 05:07 Calcium 9.6 mg/dL (8.4-10.2) 07/03/16 05:07 Phosphorus 4.3 mg/dL (2.5-4.5) 07/03/16 05:07 Magnesium 2.3 mg/dL (1.7-2.3) 07/03/16 05:07 Total Bilirubin 0.9 mg/dL (0.1-1.2) 07/02/16 05:30 AST 15 units/L (5-40) 07/02/16 05:30 ALT 37 units/L (7-56) 07/02/16 05:30 Alkaline Phosphatase 65 units/L (35-129) 07/02/16 05:30 Total Creatine Kinase 80 units/L (55-170) 07/01/16 23:32 CK-MB (CK-2) 4.7 ng/mL (0.0-4.0) H 07/01/16 23:32 CK-MB (CK-2) Rel Index 5.8 (0-4) H 07/01/16 23:32 Troponin T < 0.010 ng/mL (0.00-0.029) 07/01/16 23:32 NT-Pro-B Natriuret Pep 246.7 pg/mL (0-900) 07/01/16 15:57 Total Protein 7.3 g/dL (6.3-8.2) 07/02/16 05:30 Albumin 3.9 g/dL (3.9-5) 07/02/16 05:30 Albumin/Globulin Ratio 1.1 % 07/02/16 05:30 Amylase 22 units/L (27-131) L 07/02/16 16:16 Lipase 21 units/L (13-60) 07/02/16 16:16
[2016-07-03] MEDS: DILAUDID IV PRN (18:00)
[2016-07-03] MEDS ORDERED: PROTONIX IV SCH (19:00)
--- NOTE | 2016-07-03 21:52 | Consultation ---
REASON FOR CONSULTATION: Rule out partial small bowel obstruction. HISTORY OF PRESENT ILLNESS: The patient is a 71-year-old gentleman who was admitted to the hospital with a chief complaint of abdominal pain accompanied by nausea and vomiting. Denies any recent bowel movements. PAST MEDICAL HISTORY: Pertinent for diabetes, hypertension, and depression. PAST SURGICAL HISTORY: Status post T and A. The patient states he has had \\"no previous abdominal surgeries?\\" ALLERGIES: No known allergies. MEDICATIONS: Include \\"blood pressure pill\\", \\"diabetic pill\\" and \\"medicine for depression.\\" FAMILY HISTORY: Negative. SOCIAL HISTORY: Drinks beers, \\"almost every day.\\" Smokes half a pack a day for approximately 40 years. PHYSICAL EXAMINATION: GENERAL: At this time reveals the patient to be awake, alert, cooperative, in no acute distress. VITAL SIGNS: Show him to be afebrile with a temperature of 99, blood pressure is 132/81, pulse of 111, respirations of 18. HEENT: NG tube is in place and appears to be working well. Pupils were equal and reactive to light and accommodation. Sclerae nonicteric. ABDOMEN: Examination of the abdomen reveals no visible scars. The abdomen itself is slightly firm, but nontender. No rebound or guarding can be elicited. Bowel sounds are absent. LABORATORY DATA: Lab work at present includes a CBC which shows a white count of 3.9, H and H is 15.7 and 46.2. Electrolytes show low sodium of 134, low chloride of 93, potassium is normal at 4.1, calcium is normal at 94, and magnesium also normal at 2.0. BUN is 39 and creatinine is 1.8 consistent with possible dehydration. Glucose is 195. Amylase and lipase were within normal limits, 22 and 21 respectively. Abdominal series has been performed, which I have reviewed with Radiology. It is consistent with a partial small-bowel obstruction. Dilated proximal small bowel loops are noted. A few areas of gas were noted in the colon. IMPRESSION: At this time is that of a 71-year-old gentleman, rule out partial small-bowel obstruction of unknown etiology as it appears the patient has not had previous abdominal surgeries. Possible depression medication is source of ileus? I would recommend to continue n.p.o. and NG suction as well as IV fluid hydration as you are doing. We will begin inserting mineral oil of 30 mL q. 4 hours per NG tube. I encouraged ambulation. We will monitor clinically and follow up with an abdominal series in the morning. I will follow with you. Thank you very much for the consultation. JOB# [id number] ZEFERINO/PATTI
[2016-07-04] MEDS: DILAUDID IV PRN ×2 (00:45→19:53)
[2016-07-04] MEDS: D5W 1,000 ML IV SCH (00:45)
[2016-07-04] MEDS: MINERAL OIL PO SCH ×6 (03:01→21:38)
[2016-07-04] MEDS: HEPARIN SUB-Q SCH ×3 (05:42→21:46)
[2016-07-04 06:34] LABS: Basophils % (Auto) 0.2 % (0.0-1.8); Eosinophils % (Auto) 1.9 % (0.0-4.3); Hematocrit 45.2 % (35.5-45.6); Hemoglobin 15.5 gm/dl (11.8-15.2); Mean Corpuscular HGB Conc 34 % (32-34); Mean Corpuscular Hemoglobin 31 pg (28-32); Mean Corpuscular Volume 90 fl (84-94); Platelet Count 265 K/mm3 (140-440); Red Blood Count 5.01 M/mm3 (3.65-5.03); Red Cell Distribution Width 13.7 % (13.2-15.2); White Blood Count 4.5 K/mm3 (4.5-11.0)
[2016-07-04 06:49] LABS: Alanine Aminotransferase 40 units/L (7-56); Albumin 3.8 g/dL (3.9-5); Alkaline Phosphatase 77 units/L (35-129); Anion Gap 22 mmol/L; BUN/Creatinine Ratio 31.53; Bilirubin,Total 1.3 mg/dL (0.1-1.2); Blood Urea Nitrogen 41 mg/dL (9-20); Calcium 9.1 mg/dL (8.4-10.2); Carbon Dioxide 29 mmol/L (22-30); Chloride 79.5 mmol/L (98-107); Glucose 176 mg/dL (75-100); Potassium 3.1 mmol/L (3.6-5.0); Sodium 127 mmol/L (137-145); Total Protein 7.5 g/dL (6.3-8.2)
--- NOTE | 2016-07-04 08:06 | XRay Report ---
Flat and upright of abdomen: History: Small bowel obstruction. Findings: No free intraperitoneal air. No radiopaque calculus or abnormal calcification. Distended loops of small bowel with minimal air in large bowel. Impression: Probably incomplete small bowel obstruction.
--- NOTE | 2016-07-04 08:48 | Progress Note ---
Assessment and Plan Pt status quo. - flatus. denies abd pain. Abd exam - unchanged. Abd series - unchanged. electrolytes abnormal as below. needs IVF hydration and electrolyte correction discussed with Hospitalist will order CT abd in am with po contrast Selected Entries 07/04/16 04:00 Temperature 98.2 F Pulse Rate [ 95 H Right Radial] Respiratory 18 Rate Blood Pressure 133/76 [Left Radial Artery] Laboratory Tests 07/04/16 07/04/16 05:19 05:19 WBC 4.5 Hgb 15.5 H Hct 45.2 Sodium 127 L Potassium 3.1 L Chloride 79.5 L Carbon Dioxide 29 BUN 41 H Creatinine 1.3 Objective Vital Signs - 12hr 07/03/16 07/03/16 07/04/16 20:48 22:00 04:00 Temperature 98.7 F 98.2 F Pulse Rate [ 112 H 95 H Right Radial] Respiratory 20 20 18 Rate Blood Pressure 136/81 133/76 [Left Radial Artery] O2 Sat by Pulse 93 97 Oximetry - Labs 07/04/16 05:19 07/04/16 05:19 Diabetes panel 07/04/16 Range/Units 05:19 Sodium 127 L (137-145) mmol/L Potassium 3.1 L (3.6-5.0) mmol/L Chloride 79.5 L (98-107) mmol/L Carbon Dioxide 29 (22-30) mmol/L BUN 41 H (9-20) mg/dL Creatinine 1.3 (0.8-1.5) mg/dL Glucose 176 H (75-100) mg/dL Calcium 9.1 (8.4-10.2) mg/dL AST 21 (5-40) units/L ALT 40 (7-56) units/L Alkaline Phosphatase 77 (35-129) units/L Total Protein 7.5 (6.3-8.2) g/dL Albumin 3.8 L (3.9-5) g/dL Calcium panel 07/04/16 Range/Units 05:19 Calcium 9.1 (8.4-10.2) mg/dL Albumin 3.8 L (3.9-5) g/dL Pituitary panel 07/04/16 Range/Units 05:19 Sodium 127 L (137-145) mmol/L Potassium 3.1 L (3.6-5.0) mmol/L Chloride 79.5 L (98-107) mmol/L Carbon Dioxide 29 (22-30) mmol/L BUN 41 H (9-20) mg/dL Creatinine 1.3 (0.8-1.5) mg/dL Glucose 176 H (75-100) mg/dL Calcium 9.1 (8.4-10.2) mg/dL Adrenal panel 07/04/16 Range/Units 05:19 Sodium 127 L (137-145) mmol/L Potassium 3.1 L (3.6-5.0) mmol/L Chloride 79.5 L (98-107) mmol/L Carbon Dioxide 29 (22-30) mmol/L BUN 41 H (9-20) mg/dL Creatinine 1.3 (0.8-1.5) mg/dL Glucose 176 H (75-100) mg/dL Calcium 9.1 (8.4-10.2) mg/dL Total Bilirubin 1.3 H (0.1-1.2) mg/dL AST 21 (5-40) units/L ALT 40 (7-56) units/L Alkaline Phosphatase 77 (35-129) units/L Total Protein 7.5 (6.3-8.2) g/dL Albumin 3.8 L (3.9-5) g/dL
[2016-07-04] MEDS: NOVOLOG SUB-Q SCH ×4 (09:16→21:48)
[2016-07-04] MEDS: PEPCID IV SCH ×2 (11:59→21:45)
[2016-07-04] MEDS: D5W/NS W/KCL 40MEQ 40 MEQ/1,000 ML BAG IV SCH ×2 (11:59→23:07)
[2016-07-04] MEDS: KCL 10MEQ/100ML 10 MEQ/100 ML BAG IV SCH ×3 (11:59→16:10)
--- NOTE | 2016-07-04 15:53 | Progress Note ---
Assessment and Plan Assessment and plan: (1) Acute small bowel obstruction Current Visit: Yes Status: Acute Qualifiers: Acute renal failure type: unspecified Qualified Code(s): N17.9 - Acute kidney failure, unspecified Plan to address problem: IV fluids for now keep NPO, NG suction Discussed with surgery, and recommended to continue current conservative mx CT scan of abdomen with by mouth contrast tomorrow (2) Acute chest pain Current Visit: Yes Status: Acute Plan to address problem: Chest pain protocol followed Lexiscan was normal could be coming from SBO (3) HTN (hypertension) Current Visit: Yes Status: Chronic Qualifiers: Hypertension type: essential hypertension Qualified Code(s): I10 - Essential (primary) hypertension Plan to address problem: cont to monitor BP q shift (4) T2DM (type 2 diabetes mellitus) Current Visit: Yes Status: Chronic Qualifiers: Diabetes mellitus complication status: without complication Diabetes mellitus complication detail: D Diabetic retinopathy severity: D Proliferative retinopathy type: P Diabetes mellitus macular edema: D 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 Medical records and medication list reviewed. He did not have any bowel movement since Friday Abdominal XRY showed SBO, on NG suction now Denies any abdominal pain today, still no bowel movement Discussed with general surgeon and recommended to have a CT scan of abdomen with by mouth contrast tomorrow Discussed plan of care at bedside with patient. Hospitalist Physical - Physical exam Narrative exam: GENERAL: The male lying on bed appeared to be in moderate discomfort. HEENT: Normocephalic. Atraumatic. No conjunctival congestion or icterus. Patient has moist mucous membranes. NG tube in place. NECK: Supple. Trachea midline. CHEST/LUNGS: Clear to auscultated bilaterally, breathing nonlabored. No wheezes crackles or rhonchi. HEART/CARDIOVASCULAR: Regular in rate and rhythm. S1 and S2 positive. ABDOMEN: Abdomen is nondistended nontender. Patient has been very hypoactive bowel sounds. SKIN: There is no rash. Warm and dry. NEURO: No focal motor deficit. Follows command. MUSCULOSKELETAL: No joint effusion or tenderness. EXTRIMITY: No edema, no cyanosis or clubbing. PSYCH: Cooperative. - Constitutional Vitals: Temp Pulse Resp BP Pulse Ox 97.9 F 104 H 18 126/81 93 07/04/16 10:00 07/04/16 10:00 07/04/16 10:00 07/04/16 10:00 07/04/16 10:00 General appearance: Present: no acute distress, well-nourished Results - Labs CBC & Chem 7: 07/05/16 04:45 07/05/16 04:45 Labs: Laboratory Last Values WBC 4.5 K/mm3 (4.5-11.0) 07/04/16 05:19 RBC 5.01 M/mm3 (3.65-5.03) 07/04/16 05:19 Hgb 15.5 gm/dl (11.8-15.2) H 07/04/16 05:19 Hct 45.2 % (35.5-45.6) 07/04/16 05:19 MCV 90 fl (84-94) 07/04/16 05:19 MCH 31 pg (28-32) 07/04/16 05:19 MCHC 34 % (32-34) 07/04/16 05:19 RDW 13.7 % (13.2-15.2) 07/04/16 05:19 Plt Count 265 K/mm3 (140-440) 07/04/16 05:19 Lymph % (Auto) 23.2 % (13.4-35.0) 07/04/16 05:19 [place] % (Auto) 15.5 % (0.0-7.3) H 07/04/16 05:19 Eos % (Auto) 1.9 % (0.0-4.3) 07/04/16 05:19 Baso % (Auto) 0.2 % (0.0-1.8) 07/04/16 05:19 Lymph # 1.0 K/mm3 (1.2-5.4) L 07/04/16 05:19 [place] # 0.7 K/mm3 (0.0-0.8) 07/04/16 05:19 Eos # 0.1 K/mm3 (0.0-0.4) 07/04/16 05:19 Baso # 0.0 K/mm3 (0.0-0.1) 07/04/16 05:19 Add Manual Diff Complete 07/03/16 05:07 Total Counted 100 07/03/16 05:07 Seg Neutrophils % 59.2 % (40.0-70.0) 07/04/16 05:19 Seg Neuts % (Manual) 61.0 % (40.0-70.0) 07/03/16 05:07 Band Neutrophils % 1.0 % 07/03/16 05:07 Lymphocytes % (Manual) 21.0 % (13.4-35.0) 07/03/16 05:07 Reactive Lymphs % (Man) 0 % 07/03/16 05:07 Monocytes % (Manual) 16.0 % (0.0-7.3) H 07/03/16 05:07 Eosinophils % (Manual) 1.0 % (0.0-4.3) 07/03/16 05:07 Basophils % (Manual) 0 % (0.0-1.8) 07/03/16 05:07 Metamyelocytes % 0 % 07/03/16 05:07 Myelocytes % 0 % 07/03/16 05:07 Promyelocytes % 0 % 07/03/16 05:07 Blast Cells % 0 % 07/03/16 05:07 Nucleated RBC % Not Reportable 07/03/16 05:07 Seg Neutrophils # 2.7 K/mm3 (1.8-7.7) 07/04/16 05:19 Seg Neutrophils # Man 2.4 K/mm3 (1.8-7.7) 07/03/16 05:07 Band Neutrophils # 0.0 K/mm3 07/03/16 05:07 Lymphocytes # (Manual) 0.8 K/mm3 (1.2-5.4) L 07/03/16 05:07 Abs React Lymphs (Man) 0.0 K/mm3 07/03/16 05:07 Monocytes # (Manual) 0.6 K/mm3 (0.0-0.8) 07/03/16 05:07 Eosinophils # (Manual) 0.0 K/mm3 (0.0-0.4) 07/03/16 05:07 Basophils # (Manual) 0.0 K/mm3 (0.0-0.1) 07/03/16 05:07 Metamyelocytes # 0.0 K/mm3 07/03/16 05:07 Myelocytes # 0.0 K/mm3 07/03/16 05:07 Promyelocytes # 0.0 K/mm3 07/03/16 05:07 Blast Cells # 0.0 K/mm3 07/03/16 05:07 WBC Morphology Not Reportable 07/03/16 05:07 Hypersegmented Neuts Not Reportable 07/03/16 05:07 Hyposegmented Neuts Not Reportable 07/03/16 05:07 Hypogranular Neuts Not Reportable 07/03/16 05:07 Smudge Cells Not Reportable 07/03/16 05:07 Toxic Granulation Not Reportable 07/03/16 05:07 Toxic Vacuolation Not Reportable 07/03/16 05:07 Dohle Bodies Not Reportable 07/03/16 05:07 Pelger-Huet Anomaly Not Reportable 07/03/16 05:07 Binh Rods Not Reportable 07/03/16 05:07 Platelet Estimate Appears normal 07/03/16 05:07 Clumped Platelets Not Reportable 07/03/16 05:07 Plt Clumps, EDTA Not Reportable 07/03/16 05:07 Large Platelets Not Reportable 07/03/16 05:07 Giant Platelets Not Reportable 07/03/16 05:07 Platelet Satelliting Not Reportable 07/03/16 05:07 Plt Morphology Comment Not Reportable 07/03/16 05:07 RBC Morphology Not Reportable 07/03/16 05:07 Dimorphic RBCs Not Reportable 07/03/16 05:07 Polychromasia Not Reportable 07/03/16 05:07 Hypochromasia Not Reportable 07/03/16 05:07 Poikilocytosis Not Reportable 07/03/16 05:07 Anisocytosis Rare 07/03/16 05:07 Microcytosis Not Reportable 07/03/16 05:07 Macrocytosis Not Reportable 07/03/16 05:07 Spherocytes Not Reportable 07/03/16 05:07 Pappenheimer Bodies Not Reportable 07/03/16 05:07 Sickle Cells Not Reportable 07/03/16 05:07 Target Cells Not Reportable 07/03/16 05:07 Tear Drop Cells Not Reportable 07/03/16 05:07 Ovalocytes Not Reportable 07/03/16 05:07 Helmet Cells Not Reportable 07/03/16 05:07 [place] Bodies Not Reportable 07/03/16 05:07 [place] Rings Not Reportable 07/03/16 05:07 Melecio Cells Not Reportable 07/03/16 05:07 Bite Cells Not Reportable 07/03/16 05:07 Crenated Cell Not Reportable 07/03/16 05:07 Elliptocytes Not Reportable 07/03/16 05:07 Acanthocytes (Spur) Not Reportable 07/03/16 05:07 Rouleaux Not Reportable 07/03/16 05:07 Hemoglobin C Crystals Not Reportable 07/03/16 05:07 Schistocytes Not Reportable 07/03/16 05:07 Malaria parasites Not Reportable 07/03/16 05:07 Kristofer Bodies Not Reportable 07/03/16 05:07 Hem Pathologist Commnt No 07/03/16 05:07 PT 13.2 Sec. (12.2-14.9) 07/01/16 09:41 INR 1.01 (0.87-1.13) 07/01/16 09:41 Sodium 127 mmol/L (137-145) L 07/04/16 05:19 Potassium 3.1 mmol/L (3.6-5.0) L 07/04/16 05:19 Chloride 79.5 mmol/L (98-107) L 07/04/16 05:19 Carbon Dioxide 29 mmol/L (22-30) 07/04/16 05:19 Anion Gap 22 mmol/L 07/04/16 05:19 BUN 41 mg/dL (9-20) H 07/04/16 05:19 Creatinine 1.3 mg/dL (0.8-1.5) 07/04/16 05:19 Estimated GFR > 60 ml/min 07/04/16 05:19 BUN/Creatinine Ratio 31.53 % 07/04/16 05:19 Glucose 176 mg/dL (75-100) H 07/04/16 05:19 POC Glucose 122 (70-105) H 07/04/16 12:32 Hemoglobin A1c 6.4 % (4-6) H 07/03/16 05:07 Calcium 9.1 mg/dL (8.4-10.2) 07/04/16 05:19 Phosphorus 4.3 mg/dL (2.5-4.5) 07/03/16 05:07 Magnesium 2.3 mg/dL (1.7-2.3) 07/03/16 05:07 Total Bilirubin 1.3 mg/dL (0.1-1.2) H 07/04/16 05:19 AST 21 units/L (5-40) 07/04/16 05:19 ALT 40 units/L (7-56) 07/04/16 05:19 Alkaline Phosphatase 77 units/L (35-129) 07/04/16 05:19 Total Creatine Kinase 80 units/L (55-170) 07/01/16 23:32 CK-MB (CK-2) 4.7 ng/mL (0.0-4.0) H 07/01/16 23:32 CK-MB (CK-2) Rel Index 5.8 (0-4) H 07/01/16 23:32 Troponin T < 0.010 ng/mL (0.00-0.029) 07/01/16 23:32 NT-Pro-B Natriuret Pep 246.7 pg/mL (0-900) 07/01/16 15:57 Total Protein 7.5 g/dL (6.3-8.2) 07/04/16 05:19 Albumin 3.8 g/dL (3.9-5) L 07/04/16 05:19 Albumin/Globulin Ratio 1.0 % 07/04/16 05:19 Amylase 22 units/L (27-131) L 07/02/16 16:16 Lipase 21 units/L (13-60) 07/02/16 16:16 - Imaging and Cardiology Abdominal x-ray: report reviewed
[2016-07-05] MEDS: MINERAL OIL PO SCH ×5 (01:48→21:35)
[2016-07-05] MEDS: HEPARIN SUB-Q SCH ×3 (05:09→21:35)
[2016-07-05 05:39] LABS: Basophils % (Auto) 0.4 % (0.0-1.8); Eosinophils % (Auto) 1.1 % (0.0-4.3); Hematocrit 44.3 % (35.5-45.6); Mean Corpuscular HGB Conc 34 % (32-34); Mean Corpuscular Hemoglobin 31 pg (28-32); Mean Corpuscular Volume 91 fl (84-94); Platelet Count 252 K/mm3 (140-440); Red Blood Count 4.86 M/mm3 (3.65-5.03); Red Cell Distribution Width 13.6 % (13.2-15.2); White Blood Count 4.9 K/mm3 (4.5-11.0)
[2016-07-05 05:59] LABS: Alanine Aminotransferase 36 units/L (7-56); Albumin 3.7 g/dL (3.9-5); Albumin/Globulin Ratio 1.1 %; Alkaline Phosphatase 80 units/L (35-129); Anion Gap 19 mmol/L; BUN/Creatinine Ratio 31.11; Bilirubin,Total 1.2 mg/dL (0.1-1.2); Blood Urea Nitrogen 28 mg/dL (9-20); Calcium 8.7 mg/dL (8.4-10.2); Carbon Dioxide 27 mmol/L (22-30); Chloride 85.2 mmol/L (98-107); Glucose 166 mg/dL (75-100); Potassium 3.8 mmol/L (3.6-5.0); Sodium 127 mmol/L (137-145); Total Protein 7.1 g/dL (6.3-8.2)
--- NOTE | 2016-07-05 08:56 | Query- Renal Failure ---
Vernell Kaplan___Conor Date:____07/05/16 Lithographic General Worker/CDS:____Jake Mellojusmag Phone#:[phone] Exercise your independent professional judgment when responding to query. Questions asked do not imply a particular answer is desired or expected. We greatly appreciate your clarification on this issue. Clinical Documentation States: 71 year old male was admitted on 07/01/16. The progress note (07/04/16) States " Acute renal failure Current Visit: Yes Status: Acute Qualifiers: Acute renal failure type: unspecified Qualified Code(s): N17.9 - Acute kidney failure, unspecified Plan to address problem: IV fluids for now, Cr level improving " Clinical Findings Show: 07/01/2016 07/05/16 Creatinine: 2.0 0.9 Please clarify if you mean: Acute Renal Failure with or due to: [ ] Tubular Necrosis [ ] Medullary Necrosis [ X] Vasomotor Nephropathy [ ] Shock Kidney [ ] Tubular Nephrosis [ ] Renal Tubular Stasis [ ] Cortical Necrosis [ ] Acute Renal Failure (unspecified) [ ] Lower Tubular Nephrosis [ ] Other: [ ] Not Applicable Present on Admission: [X ] Yes (Y) [ ] Clinically undeterminable (W) [ ] No (N) Please also document response in your Progress Notes and/or Discharge Summary and indicate if the condition was present on admission. RAMIRO
--- NOTE | 2016-07-05 09:01 | Query- Chest Pain ---
Vernell Kaplan Conor Date: 07/05/16 Bakari/CDS:____Jake Melloliyah Phone#:[phone] Exercise your independent professional judgment when responding to query. Questions asked do not imply a particular answer is desired or expected. We greatly appreciate your clarification on this issue. Clinical Documentation States: 71 year old male was admitted on 07/01/16. The Progress note ( 07/04/16) states " Acute chest pain Current Visit: Yes Status: Acute Plan to address problem: Chest pain protocol followed Lakshmian was normal could be coming from SBO " Please document the etiology of Chest Pain: [ ] Myocardial Infarction [ ] Pneumonia [ ] Mediastinitis [X ] Costochondritis [ ] Pulmonary Embolism [ ] Coronary Artery Disease [ ] GERD [ ] Other: [ ] Comment/Explanation: Present on Admission: [ X] Yes (Y) [ ] Clinically undeterminable (W) [ ] No(N) Please document response in your Progress Notes and/or Discharge Summary and indicate if the condition was present on admission. ALETHEAD
[2016-07-05] MEDS: ZOFRAN IV PRN (09:13)
[2016-07-05] MEDS: PEPCID IV SCH ×2 (09:13→21:36)
[2016-07-05] MEDS: DILAUDID IV PRN ×4 (09:13→17:51)
[2016-07-05] MEDS: NOVOLOG SUB-Q SCH ×3 (09:18→18:00)
--- NOTE | 2016-07-05 13:07 | Progress Note ---
Assessment and Plan Pt status quo. "not feeling any better" Abd exam - unchanged CT abd - dilated small bowel loops consistent with unresolving sbo rec - expl lap. possible bowel resection. risks, indications and complications reviewed with pt and daughter. they both understand. consent signed discussed with Hospitalist will proceed Selected Entries 07/05/16 08:00 Temperature 98.0 F Pulse Rate [ 97 H From Monitor] Respiratory 20 Rate Blood Pressure 137/85 [Left Radial Artery] Laboratory Tests 07/05/16 07/05/16 04:45 04:45 WBC 4.9 Hgb 15.0 Hct 44.3 Sodium 127 L Potassium 3.8 D Chloride 85.2 L Carbon Dioxide 27 BUN 28 H Creatinine 0.9 Objective Vital Signs - 12hr 07/05/16 07/05/16 04:00 08:00 Temperature 98.1 F 98.0 F Pulse Rate 89 Pulse Rate [ 93 H 97 H From Monitor] Respiratory 18 20 Rate Blood Pressure 138/78 137/85 [Left Radial Artery] O2 Sat by Pulse 97 94 Oximetry - Labs 07/05/16 04:45 07/05/16 04:45 Diabetes panel 07/05/16 Range/Units 04:45 Sodium 127 L (137-145) mmol/L Potassium 3.8 D (3.6-5.0) mmol/L Chloride 85.2 L (98-107) mmol/L Carbon Dioxide 27 (22-30) mmol/L BUN 28 H (9-20) mg/dL Creatinine 0.9 (0.8-1.5) mg/dL Glucose 166 H (75-100) mg/dL Calcium 8.7 (8.4-10.2) mg/dL AST 18 (5-40) units/L ALT 36 (7-56) units/L Alkaline Phosphatase 80 (35-129) units/L Total Protein 7.1 (6.3-8.2) g/dL Albumin 3.7 L (3.9-5) g/dL Calcium panel 07/05/16 Range/Units 04:45 Calcium 8.7 (8.4-10.2) mg/dL Albumin 3.7 L (3.9-5) g/dL Pituitary panel 07/05/16 Range/Units 04:45 Sodium 127 L (137-145) mmol/L Potassium 3.8 D (3.6-5.0) mmol/L Chloride 85.2 L (98-107) mmol/L Carbon Dioxide 27 (22-30) mmol/L BUN 28 H (9-20) mg/dL Creatinine 0.9 (0.8-1.5) mg/dL Glucose 166 H (75-100) mg/dL Calcium 8.7 (8.4-10.2) mg/dL Adrenal panel 07/05/16 Range/Units 04:45 Sodium 127 L (137-145) mmol/L Potassium 3.8 D (3.6-5.0) mmol/L Chloride 85.2 L (98-107) mmol/L Carbon Dioxide 27 (22-30) mmol/L BUN 28 H (9-20) mg/dL Creatinine 0.9 (0.8-1.5) mg/dL Glucose 166 H (75-100) mg/dL Calcium 8.7 (8.4-10.2) mg/dL Total Bilirubin 1.2 (0.1-1.2) mg/dL AST 18 (5-40) units/L ALT 36 (7-56) units/L Alkaline Phosphatase 80 (35-129) units/L Total Protein 7.1 (6.3-8.2) g/dL Albumin 3.7 L (3.9-5) g/dL
[2016-07-05] MEDS ORDERED: ceFAZolin 2 GM in NACL 0.9% 100 ML IV ONE (13:08)
--- NOTE | 2016-07-05 13:48 | Anesthesia Day of Surgery ---
Anesthesia Day of Surgery - Day of Surgery Patient Examined: Yes Patient H&P Reviewed: Yes Patient is NPO: Yes
--- NOTE | 2016-07-05 13:48 | Anesthesia Consultation ---
Anesthesia Consult and Med Hx Date of service: 07/05/16 - Airway Anesthetic Teeth Evaluation: Good ROM Head & Neck: Adequate Mental/Hyoid Distance: Adequate Mallampati Class: Class II Intubation Access Assessment: Probably Good - Pulmonary Exam CTA: Yes - Cardiac Exam Cardiac Exam: RRR - Pre-Operative Health Status ASA Pre-Surgery Classification: ASA3 Proposed Anesthetic Plan: General - Pulmonary Hx Smoking: Yes - Cardiovascular System Hx Hypertension: Yes - Endocrine Hx Non-Insulin Dependent Diabetes: Yes
[2016-07-05] MEDS ORDERED: NACL 0.9% 1000 ML 1,000 ML IV SCH ×2 (14:00→16:00)
[2016-07-05] MEDS ORDERED: VERSED IV NR (14:00)
[2016-07-05] MEDS ORDERED: XYLOCAINE MPF 2% ONE (14:04)
[2016-07-05] MEDS ORDERED: DILAUDID ONE (14:04)
[2016-07-05] MEDS ORDERED: ZEMURON IV ONE (14:04)
[2016-07-05] MEDS ORDERED: DIPRIVAN 10 MG/ML IV ONE (14:04)
[2016-07-05] MEDS ORDERED: ROBINUL ONE (14:11)
[2016-07-05] MEDS ORDERED: NEOSTIGMINE ONE (14:11)
[2016-07-05] MEDS ORDERED: QUELICIN ONE (14:12)
[2016-07-05] MEDS ORDERED: ANCEF/STERILE WATER 2 GM/20 ML 2 GM/20 ML SYRINGE IV SCH (14:15)
[2016-07-05] MEDS ORDERED: NACL BACTERIOSTATIC INFILTRATI ONE (14:18)
[2016-07-05] MEDS ORDERED: ZOFRAN ONE (14:55)
[2016-07-05] MEDS ORDERED: DECADRON ONE (14:55)
--- NOTE | 2016-07-05 15:44 | Cat Scan Report ---
CT ABDOMEN AND PELVIS WITHOUT CONTRAST INDICATION: Small bowel obstruction. COMPARISON: None similar. FINDINGS: Noncontrast abdomen and pelvis CT performed. LUNG BASES: Normal heart size. Slight atherosclerotic calcifications. Mild left basilar atelectasis. Greater right lung base atelectasis/lower lobe consolidation and small, simple pleural effusion. Mild increased AP chest diameter. Nonspecific distal esophageal wall thickening, not excluded for gastroesophageal reflux and/or hiatal hernia, amongst others. An esophagogastric tube has its tip about the mid stomach. Right hemidiaphragm slightly elevated. ABDOMEN: Please note that sensitivity to detect small visceral lesions is limited due to the absence of intravenous or oral contrast. Tiny hepatic calcified granulomas. Approximately 4 x 1.5 cm peripheral right hepatic hypodensity measuring 42 HU, axial image 76, series 2. No other definite focal suspicious hepatic or splenic lesions identified. Left hepatic lobe tip extends into the left upper quadrant. No radiopaque gallstones or renal calculi. Grossly unremarkable pancreas, adrenals and IVC. Nonaneurysmal abdominal aorta with few atherosclerotic calcifications. No ascites or size significant adenopathy. Stomach, duodenum and very proximal jejunum appears unremarkable. Subsequent jejunal distention though noted in the right hemiabdomen, axial series 2, images 114-145 with opacified small bowel caliber measuring up to 3.9 cm, axial image 115, series 2. Further distal poorly opacified/nonopacified small bowel loops difficult to accurately follow. Few nondistended small bowel loops in the left mid to lower abdomen though seen, axial images 200-318, including the terminal ileum leading up to the cecum as on axial image 256, amongst others. Usual colonic stool. Decompressed descending colon with mild distal colonic diverticulosis. PELVIS: Prominent/mildly enlarged prostate may be correlated for clinically and with PSA. Tiny prostatic calcifications. Grossly unremarkable seminal vesicles and the rectosigmoid. Non-opacified urinary bladder intrinsically unremarkable, though slightly effaced due to few dilated, fluid-filled pelvic small bowel loops. No free fluid or definite significant adenopathy. Fat containing bilateral inguinal hernias measuring up to 1.3 cm. Osteopenia, bilateral SI joint degenerative bridging and mild multilevel spinal degenerative spurring. CONCLUSION: 1. CT appearance in keeping with proximal to mid small bowel obstruction with exact point of transition difficult to accurately localize, as described. 2. Various other findings, including small right pleural effusion, right more than left basilar atelectasis/consolidation, esophagogastric tube, old healed granulomatous disease, incompletely characterized peripheral right hepatic hypodense lesion, diverticulosis and prominent prostate, amongst other, as described above. Thank you for the opportunity to participate in this patient's care.
[2016-07-05] MEDS ORDERED: MORPHINE IV PRN (15:54)
--- NOTE | 2016-07-05 15:57 | Progress Note ---
Assessment and Plan Assessment and plan: (1) Acute small bowel obstruction Current Visit: Yes Status: Acute Qualifiers: Acute renal failure type: unspecified Qualified Code(s): N17.9 - Acute kidney failure, unspecified Plan to address problem: IV fluids for now keep NPO, NG suction Discussed with surgery, and recommended to continue current conservative mx CT scan of abdomen with by mouth contrast today showed no improvement plan for surgery today (2) Acute chest pain Current Visit: Yes Status: Acute Plan to address problem: Chest pain protocol followed Lexiscan was normal could be coming from SBO (3) HTN (hypertension) Current Visit: Yes Status: Chronic Qualifiers: Hypertension type: essential hypertension Qualified Code(s): I10 - Essential (primary) hypertension Plan to address problem: cont to monitor BP q shift (4) T2DM (type 2 diabetes mellitus) Current Visit: Yes Status: Chronic Qualifiers: Diabetes mellitus complication status: without complication Diabetes mellitus complication detail: D Diabetic retinopathy severity: D Proliferative retinopathy type: P Diabetes mellitus macular edema: D Diabetes mellitus terminal gauger insulin use: D Laterality: L Chronic kidney disease stage: C Plan to address problem: SSI for now, as he is NPO (5) Acute renal failure Current Visit: Yes Status: Acute Qualifiers: Acute renal failure type: unspecified Qualified Code(s): N17.9 - Acute kidney failure, unspecified Plan to address problem: IV fluids for now, Cr level improving (6) hyponatremia and hypokalemia Current Visit: Yes Status: Acute Plan to address problem: cont IV fluid and replace potassium as needed Monitor BMP DVT prophylaxis with heparin History Interval history: Patient seen and examined. Medical records and medication list reviewed. He did not have any bowel movement since Friday Abdominal XRY showed SBO, on NG suction now Denies any abdominal pain today, still no bowel movement Discussed with general surgeon and recommended to have surgery today Discussed plan of care at bedside with patient. Hospitalist Physical - Physical exam Narrative exam: GENERAL: The male lying on bed appeared to be in moderate discomfort. HEENT: Normocephalic. Atraumatic. No conjunctival congestion or icterus. Patient has moist mucous membranes. NG tube in place. NECK: Supple. Trachea midline. CHEST/LUNGS: Clear to auscultated bilaterally, breathing nonlabored. No wheezes crackles or rhonchi. HEART/CARDIOVASCULAR: Regular in rate and rhythm. S1 and S2 positive. ABDOMEN: Abdomen is nondistended nontender. Patient has been very hypoactive bowel sounds. SKIN: There is no rash. Warm and dry. NEURO: No focal motor deficit. Follows command. MUSCULOSKELETAL: No joint effusion or tenderness. EXTRIMITY: No edema, no cyanosis or clubbing. PSYCH: Cooperative. - Constitutional Vitals: Temp Pulse Resp BP Pulse Ox 98.2 F 95 H 20 190/88 95 07/05/16 14:30 07/05/16 14:30 07/05/16 14:30 07/05/16 14:30 07/05/16 14:30 General appearance: Present: no acute distress, well-nourished Results - Labs CBC & Chem 7: 07/05/16 04:45 07/05/16 04:45 Labs: Laboratory Last Values WBC 4.9 K/mm3 (4.5-11.0) 07/05/16 04:45 RBC 4.86 M/mm3 (3.65-5.03) 07/05/16 04:45 Hgb 15.0 gm/dl (11.8-15.2) 07/05/16 04:45 Hct 44.3 % (35.5-45.6) 07/05/16 04:45 MCV 91 fl (84-94) 07/05/16 04:45 MCH 31 pg (28-32) 07/05/16 04:45 MCHC 34 % (32-34) 07/05/16 04:45 RDW 13.6 % (13.2-15.2) 07/05/16 04:45 Plt Count 252 K/mm3 (140-440) 07/05/16 04:45 Lymph % (Auto) 15.9 % (13.4-35.0) 07/05/16 04:45 [place] % (Auto) 13.5 % (0.0-7.3) H 07/05/16 04:45 Eos % (Auto) 1.1 % (0.0-4.3) 07/05/16 04:45 Baso % (Auto) 0.4 % (0.0-1.8) 07/05/16 04:45 Lymph # 0.8 K/mm3 (1.2-5.4) L 07/05/16 04:45 [place] # 0.7 K/mm3 (0.0-0.8) 07/05/16 04:45 Eos # 0.1 K/mm3 (0.0-0.4) 07/05/16 04:45 Baso # 0.0 K/mm3 (0.0-0.1) 07/05/16 04:45 Add Manual Diff Complete 07/03/16 05:07 Total Counted 100 07/03/16 05:07 Seg Neutrophils % 69.1 % (40.0-70.0) 07/05/16 04:45 Seg Neuts % (Manual) 61.0 % (40.0-70.0) 07/03/16 05:07 Band Neutrophils % 1.0 % 07/03/16 05:07 Lymphocytes % (Manual) 21.0 % (13.4-35.0) 07/03/16 05:07 Reactive Lymphs % (Man) 0 % 07/03/16 05:07 Monocytes % (Manual) 16.0 % (0.0-7.3) H 07/03/16 05:07 Eosinophils % (Manual) 1.0 % (0.0-4.3) 07/03/16 05:07 Basophils % (Manual) 0 % (0.0-1.8) 07/03/16 05:07 Metamyelocytes % 0 % 07/03/16 05:07 Myelocytes % 0 % 07/03/16 05:07 Promyelocytes % 0 % 07/03/16 05:07 Blast Cells % 0 % 07/03/16 05:07 Nucleated RBC % Not Reportable 07/03/16 05:07 Seg Neutrophils # 3.4 K/mm3 (1.8-7.7) 07/05/16 04:45 Seg Neutrophils # Man 2.4 K/mm3 (1.8-7.7) 07/03/16 05:07 Band Neutrophils # 0.0 K/mm3 07/03/16 05:07 Lymphocytes # (Manual) 0.8 K/mm3 (1.2-5.4) L 07/03/16 05:07 Abs React Lymphs (Man) 0.0 K/mm3 07/03/16 05:07 Monocytes # (Manual) 0.6 K/mm3 (0.0-0.8) 07/03/16 05:07 Eosinophils # (Manual) 0.0 K/mm3 (0.0-0.4) 07/03/16 05:07 Basophils # (Manual) 0.0 K/mm3 (0.0-0.1) 07/03/16 05:07 Metamyelocytes # 0.0 K/mm3 07/03/16 05:07 Myelocytes # 0.0 K/mm3 07/03/16 05:07 Promyelocytes # 0.0 K/mm3 07/03/16 05:07 Blast Cells # 0.0 K/mm3 07/03/16 05:07 WBC Morphology Not Reportable 07/03/16 05:07 Hypersegmented Neuts Not Reportable 07/03/16 05:07 Hyposegmented Neuts Not Reportable 07/03/16 05:07 Hypogranular Neuts Not Reportable 07/03/16 05:07 Smudge Cells Not Reportable 07/03/16 05:07 Toxic Granulation Not Reportable 07/03/16 05:07 Toxic Vacuolation Not Reportable 07/03/16 05:07 Dohle Bodies Not Reportable 07/03/16 05:07 Pelger-Huet Anomaly Not Reportable 07/03/16 05:07 Binh Rods Not Reportable 07/03/16 05:07 Platelet Estimate Appears normal 07/03/16 05:07 Clumped Platelets Not Reportable 07/03/16 05:07 Plt Clumps, EDTA Not Reportable 07/03/16 05:07 Large Platelets Not Reportable 07/03/16 05:07 Giant Platelets Not Reportable 07/03/16 05:07 Platelet Satelliting Not Reportable 07/03/16 05:07 Plt Morphology Comment Not Reportable 07/03/16 05:07 RBC Morphology Not Reportable 07/03/16 05:07 Dimorphic RBCs Not Reportable 07/03/16 05:07 Polychromasia Not Reportable 07/03/16 05:07 Hypochromasia Not Reportable 07/03/16 05:07 Poikilocytosis Not Reportable 07/03/16 05:07 Anisocytosis Rare 07/03/16 05:07 Microcytosis Not Reportable 07/03/16 05:07 Macrocytosis Not Reportable 07/03/16 05:07 Spherocytes Not Reportable 07/03/16 05:07 Pappenheimer Bodies Not Reportable 07/03/16 05:07 Sickle Cells Not Reportable 07/03/16 05:07 Target Cells Not Reportable 07/03/16 05:07 Tear Drop Cells Not Reportable 07/03/16 05:07 Ovalocytes Not Reportable 07/03/16 05:07 Helmet Cells Not Reportable 07/03/16 05:07 [place] Bodies Not Reportable 07/03/16 05:07 [place] Rings Not Reportable 07/03/16 05:07 [place] Cells Not Reportable 07/03/16 05:07 Bite Cells Not Reportable 07/03/16 05:07 Crenated Cell Not Reportable 07/03/16 05:07 Elliptocytes Not Reportable 07/03/16 05:07 Acanthocytes (Spur) Not Reportable 07/03/16 05:07 Rouleaux Not Reportable 07/03/16 05:07 Hemoglobin C Crystals Not Reportable 07/03/16 05:07 Schistocytes Not Reportable 07/03/16 05:07 Malaria parasites Not Reportable 07/03/16 05:07 Kristofer Bodies Not Reportable 07/03/16 05:07 Hem Pathologist Commnt No 07/03/16 05:07 PT 13.2 Sec. (12.2-14.9) 07/01/16 09:41 INR 1.01 (0.87-1.13) 07/01/16 09:41 Sodium 127 mmol/L (137-145) L 07/05/16 04:45 Potassium 3.8 mmol/L (3.6-5.0) D 07/05/16 04:45 Chloride 85.2 mmol/L (98-107) L 07/05/16 04:45 Carbon Dioxide 27 mmol/L (22-30) 07/05/16 04:45 Anion Gap 19 mmol/L 07/05/16 04:45 BUN 28 mg/dL (9-20) H 07/05/16 04:45 Creatinine 0.9 mg/dL (0.8-1.5) 07/05/16 04:45 Estimated GFR > 60 ml/min 07/05/16 04:45 BUN/Creatinine Ratio 31.11 % 07/05/16 04:45 Glucose 166 mg/dL (75-100) H 07/05/16 04:45 POC Glucose 133 (70-105) H 07/05/16 14:21 Hemoglobin A1c 6.4 % (4-6) H 07/03/16 05:07 Calcium 8.7 mg/dL (8.4-10.2) 07/05/16 04:45 Phosphorus 4.3 mg/dL (2.5-4.5) 07/03/16 05:07 Magnesium 2.3 mg/dL (1.7-2.3) 07/03/16 05:07 Total Bilirubin 1.2 mg/dL (0.1-1.2) 07/05/16 04:45 AST 18 units/L (5-40) 07/05/16 04:45 ALT 36 units/L (7-56) 07/05/16 04:45 Alkaline Phosphatase 80 units/L (35-129) 07/05/16 04:45 Total Creatine Kinase 80 units/L (55-170) 07/01/16 23:32 CK-MB (CK-2) 4.7 ng/mL (0.0-4.0) H 07/01/16 23:32 CK-MB (CK-2) Rel Index 5.8 (0-4) H 07/01/16 23:32 Troponin T < 0.010 ng/mL (0.00-0.029) 07/01/16 23:32 NT-Pro-B Natriuret Pep 246.7 pg/mL (0-900) 07/01/16 15:57 Total Protein 7.1 g/dL (6.3-8.2) 07/05/16 04:45 Albumin 3.7 g/dL (3.9-5) L 07/05/16 04:45 Albumin/Globulin Ratio 1.1 % 07/05/16 04:45 Amylase 22 units/L (27-131) L 07/02/16 16:16 Lipase 21 units/L (13-60) 07/02/16 16:16
[2016-07-05] MEDS ORDERED: NACL 0.9% IR ONE (16:16)
--- NOTE | 2016-07-05 16:55 | Post Anesthesia Evaluation ---
- Post Anesthesia Evaluation Patient Participated: Yes Airway Patent: Yes Stable Respiratory Function: Yes Nausea/Vomiting: No Temp > 96.8F: Yes Pain Manageable: Yes Adequeate Hydration: Yes Anesthesia Complications: No Block Receding Appropriately: Not Applicable Patient on Ventilator: No
--- NOTE | 2016-07-05 17:10 | Operative Report ---
PREOPERATIVE DIAGNOSIS: Rule out small-bowel obstruction. POSTOPERATIVE DIAGNOSES: Rule out small-bowel obstruction. A small-bowel obstruction noted secondary to internal volvulus. Fortunately, a small bowel was viable after reduction of the volvulus and resecting the band. PROCEDURE: Exploratory laparotomy and lysis of obstructing band and reduction of internal volvulus. SURGEON: Bartolome Mayberry M.D. ASP NET PROGRAMMER: Dr. Montenegro. ANESTHESIA: General. ESTIMATED BLOOD LOSS: Minimal. DRAINS: None. COMPLICATIONS: None. DESCRIPTION OF PROCEDURE: The patient was taken into the operating room, prepped and draped in usual sterile fashion. A midline incision was made and abdomen entered. Upon entrance into the abdomen, some transudate type fluid was noted. Dilated small bowel loops were also noted extending down towards the lower left pelvic region. A band was noted in this area that was lysed. Also, further inspection revealed an omental band that was also obstructing the proximal small bowel in the proximal jejunal area. This band was also ligated and transected. The entire small bowel was then run. The internal loop initially was slightly purplish, but never really dusky. The bowel was irrigated with warm saline and covered with warm saline laps. After a few minutes, the area was once again inspected and good pink color was noted in the serosa and peristalsis was seen. The entire abdomen was then irrigated copiously and dried. Checked for hemostasis and noted to be dry. NG tube was confirmed to be in the stomach. The entire small bowel was once again run from ligament of Treitz down to the ileocecal valve. No other offending obstructive areas were noted. The fascia was then closed with interrupted #1 Vicryl suture. Subcutaneous tissues irrigated and skin closed with candy. The patient tolerated the procedure well and left the OR in stable condition. JOB# [id number] [facility]/PATTI
[2016-07-05] MEDS: MORPHINE IV PRN (21:36)
--- NOTE | 2016-07-05 22:30 | Treadmill Report ---
STRESS MYOCARDIAL SCAN DESCRIPTION OF PROCEDURE: The patient received 10 mCi of technetium 99m Myoview intravenously under resting conditions. Resting myocardial perfusion scan was done. Subsequently, the patient underwent Lexiscan stress test as per the protocol. During Lexiscan stress, the patient received 28 mCi of technetium 99m Myoview intravenously. After 30-60 minutes, post stress images were done. Computerized reconstruction images were performed for analysis. The post-stress images revealed transient ischemic dilatation of the left ventricle with TID ratio of 1.28. However, no perfusion defect was seen. The gated study revealed mild inferior wall hypokinesia. Overall, left ventricular ejection fraction was normal and was calculated to be 61%. The resting images did not reveal any perfusion abnormality. CONCLUSION: 1. Transient ischemic dilatation of the left ventricle on the stress images with TID ratio of 1.28. 2. No perfusion abnormality was detected in the resting as well as stress images. 3. Gated study revealed mild inferior wall hypokinesia. 4. Normal left ventricular systolic function with LVEF of 61%. ADDENDUM: The significance of transient ischemic dilatation in this patient without perfusion defect is uncertain. JOB# [id number] [facility]/NTS
[2016-07-06] MEDS: KCL 30 MEQ in D5NS 1,000 ML IV SCH ×3 (01:59→20:00)
[2016-07-06] MEDS: MINERAL OIL PO SCH ×5 (01:59→22:10)
[2016-07-06] MEDS: NOVOLOG SUB-Q SCH ×5 (02:00→22:10)
[2016-07-06] MEDS: MORPHINE IV PRN ×2 (02:04→06:24)
[2016-07-06] MEDS: HEPARIN SUB-Q SCH ×3 (05:29→22:10)
[2016-07-06 05:42] LABS: Hematocrit 42.1 % (35.5-45.6); Hemoglobin 14.2 gm/dl (11.8-15.2); Mean Corpuscular HGB Conc 34 % (32-34); Mean Corpuscular Hemoglobin 31 pg (28-32); Mean Corpuscular Volume 93 fl (84-94); Platelet Count 277 K/mm3 (140-440); Red Blood Count 4.54 M/mm3 (3.65-5.03); Red Cell Distribution Width 14.1 % (13.2-15.2); White Blood Count 4.9 K/mm3 (4.5-11.0)
[2016-07-06 05:59] LABS: Alanine Aminotransferase 49 units/L (7-56); Albumin 3.2 g/dL (3.9-5); Albumin/Globulin Ratio 1.1 %; Alkaline Phosphatase 71 units/L (35-129); Anion Gap 18 mmol/L; BUN/Creatinine Ratio 22.85; Bilirubin,Total 0.6 mg/dL (0.1-1.2); Blood Urea Nitrogen 16 mg/dL (9-20); Calcium 7.8 mg/dL (8.4-10.2); Carbon Dioxide 22 mmol/L (22-30); Chloride 95.7 mmol/L (98-107); Glucose 163 mg/dL (75-100); Sodium 131 mmol/L (137-145); Total Protein 6.2 g/dL (6.3-8.2)
[2016-07-06 06:01] LABS: Potassium 4.7 mmol/L (3.6-5.0)
[2016-07-06 09:04] LABS: Anisocytosis 1+; Basophils % (Manual) 0 % (0.0-1.8); Blastocytes % (Manual) 0 %
[2016-07-06 09:05] LABS: Burr Cells 1+; Diff Status Complete; Spherocytes 1+
--- NOTE | 2016-07-06 14:41 | Progress Note ---
Assessment and Plan POD # 1 Pt feeling well. c/o "bloating" Abd 1 distended. minimal tenderness. dressings dry. neg BS labs as below. stable IS ambulation monitor electrolytes repeat labs in am Selected Entries 07/06/16 11:20 Temperature 98.8 F Pulse Rate [ 89 From Monitor] Respiratory 20 Rate Blood Pressure 155/89 [Left Radial Artery] Laboratory Tests 07/06/16 07/06/16 04:55 04:55 WBC 4.9 Hgb 14.2 Hct 42.1 Sodium 131 L Potassium 4.7 D Chloride 95.7 L Carbon Dioxide 22 BUN 16 Creatinine 0.7 L Glucose 163 H Objective Vital Signs - 12hr 07/06/16 07/06/16 04:00 11:20 Temperature 99.1 F 98.8 F Pulse Rate 107 H Pulse Rate [ 108 H 89 From Monitor] Respiratory 20 20 Rate Blood Pressure 175/94 155/89 [Left Radial Artery] O2 Sat by Pulse 97 96 Oximetry - Labs 07/06/16 04:55 07/06/16 04:55 Diabetes panel 07/06/16 Range/Units 04:55 Sodium 131 L (137-145) mmol/L Potassium 4.7 D (3.6-5.0) mmol/L Chloride 95.7 L (98-107) mmol/L Carbon Dioxide 22 (22-30) mmol/L BUN 16 (9-20) mg/dL Creatinine 0.7 L (0.8-1.5) mg/dL Glucose 163 H (75-100) mg/dL Calcium 7.8 L (8.4-10.2) mg/dL AST 23 (5-40) units/L ALT 49 (7-56) units/L Alkaline Phosphatase 71 (35-129) units/L Total Protein 6.2 L (6.3-8.2) g/dL Albumin 3.2 L (3.9-5) g/dL Calcium panel 07/06/16 Range/Units 04:55 Calcium 7.8 L (8.4-10.2) mg/dL Albumin 3.2 L (3.9-5) g/dL Pituitary panel 07/06/16 Range/Units 04:55 Sodium 131 L (137-145) mmol/L Potassium 4.7 D (3.6-5.0) mmol/L Chloride 95.7 L (98-107) mmol/L Carbon Dioxide 22 (22-30) mmol/L BUN 16 (9-20) mg/dL Creatinine 0.7 L (0.8-1.5) mg/dL Glucose 163 H (75-100) mg/dL Calcium 7.8 L (8.4-10.2) mg/dL Adrenal panel 07/06/16 Range/Units 04:55 Sodium 131 L (137-145) mmol/L Potassium 4.7 D (3.6-5.0) mmol/L Chloride 95.7 L (98-107) mmol/L Carbon Dioxide 22 (22-30) mmol/L BUN 16 (9-20) mg/dL Creatinine 0.7 L (0.8-1.5) mg/dL Glucose 163 H (75-100) mg/dL Calcium 7.8 L (8.4-10.2) mg/dL Total Bilirubin 0.6 (0.1-1.2) mg/dL AST 23 (5-40) units/L ALT 49 (7-56) units/L Alkaline Phosphatase 71 (35-129) units/L Total Protein 6.2 L (6.3-8.2) g/dL Albumin 3.2 L (3.9-5) g/dL
[2016-07-06] MEDS: PEPCID IV SCH ×2 (17:19→22:10)
--- NOTE | 2016-07-06 18:19 | Progress Note ---
Assessment and Plan Assessment and plan: (1) Acute small bowel obstruction Current Visit: Yes Status: Acute Qualifiers: Acute renal failure type: unspecified Qualified Code(s): N17.9 - Acute kidney failure, unspecified Plan to address problem: s/p abdominal surgery on 07/06/16 SBO due abdominal volvulus IV fluids for now keep NPO, early ambulation (2) Acute chest pain Current Visit: Yes Status: Acute Plan to address problem: Chest pain protocol followed Lexiscan was normal could be related to SBO (3) HTN (hypertension) Current Visit: Yes Status: Chronic Qualifiers: Hypertension type: essential hypertension Qualified Code(s): I10 - Essential (primary) hypertension Plan to address problem: cont to monitor BP q shift (4) T2DM (type 2 diabetes mellitus) Current Visit: Yes Status: Chronic Qualifiers: Diabetes mellitus complication status: without complication Diabetes mellitus complication detail: D Diabetic retinopathy severity: D Proliferative retinopathy type: P Diabetes mellitus macular edema: D Diabetes mellitus termite control technician insulin use: D Laterality: L Chronic kidney disease stage: C Plan to address problem: SSI for now, as he is NPO (5) Acute renal failure Current Visit: Yes Status: resolved Qualifiers: Acute renal failure type: unspecified Qualified Code(s): N17.9 - Acute kidney failure, unspecified Plan to address problem: IV fluids for now, Cr level stable (6) hyponatremia and hypokalemia Current Visit: Yes Status: Acute Plan to address problem: cont IV fluid and replace potassium as needed Monitor BMP DVT prophylaxis with heparin History Interval history: Patient seen and examined. Medical records and medication list reviewed. He did not have any bowel movement since Friday s/p exploratory abdominal surgery on 07/05/16 but pt still does not have any BM, no flatus Discussed plan of care at bedside with patient. Hospitalist Physical - Physical exam Narrative exam: GENERAL: The male lying on bed appeared to be in moderate discomfort. HEENT: Normocephalic. Atraumatic. No conjunctival congestion or icterus. Patient has moist mucous membranes. NG tube in place. NECK: Supple. Trachea midline. CHEST/LUNGS: Clear to auscultated bilaterally, breathing nonlabored. No wheezes crackles or rhonchi. HEART/CARDIOVASCULAR: Regular in rate and rhythm. S1 and S2 positive. ABDOMEN: Abdomen is distended nontender. Patient has been very hypoactive bowel sounds. SKIN: There is no rash. Warm and dry. NEURO: No focal motor deficit. Follows command. MUSCULOSKELETAL: No joint effusion or tenderness. EXTRIMITY: No edema, no cyanosis or clubbing. PSYCH: Cooperative. - Constitutional Vitals: Temp Pulse Resp BP Pulse Ox 99.1 F 95 H 20 164/83 94 07/06/16 16:51 07/06/16 16:51 07/06/16 16:51 07/06/16 16:51 07/06/16 16:51 General appearance: Present: no acute distress, well-nourished Results - Labs CBC & Chem 7: 07/06/16 04:55 07/06/16 04:55 Labs: Laboratory Last Values WBC 4.9 K/mm3 (4.5-11.0) 07/06/16 04:55 RBC 4.54 M/mm3 (3.65-5.03) 07/06/16 04:55 Hgb 14.2 gm/dl (11.8-15.2) 07/06/16 04:55 Hct 42.1 % (35.5-45.6) 07/06/16 04:55 MCV 93 fl (84-94) 07/06/16 04:55 MCH 31 pg (28-32) 07/06/16 04:55 MCHC 34 % (32-34) 07/06/16 04:55 RDW 14.1 % (13.2-15.2) 07/06/16 04:55 Plt Count 277 K/mm3 (140-440) 07/06/16 04:55 Lymph % (Auto) 15.9 % (13.4-35.0) 07/05/16 04:45 [place] % (Auto) Dumper Operator 07/06/16 04:55 Eos % (Auto) 1.1 % (0.0-4.3) 07/05/16 04:45 Baso % (Auto) 0.4 % (0.0-1.8) 07/05/16 04:45 Lymph # 0.8 K/mm3 (1.2-5.4) L 07/05/16 04:45 [place] # 0.7 K/mm3 (0.0-0.8) 07/05/16 04:45 Eos # 0.1 K/mm3 (0.0-0.4) 07/05/16 04:45 Baso # 0.0 K/mm3 (0.0-0.1) 07/05/16 04:45 Add Manual Diff Complete 07/06/16 04:55 Total Counted 100 07/06/16 04:55 Seg Neutrophils % 69.1 % (40.0-70.0) 07/05/16 04:45 Seg Neuts % (Manual) 55.0 % (40.0-70.0) 07/06/16 04:55 Band Neutrophils % 11.0 % 07/06/16 04:55 Lymphocytes % (Manual) 13.0 % (13.4-35.0) L 07/06/16 04:55 Reactive Lymphs % (Man) 3.0 % 07/06/16 04:55 Monocytes % (Manual) 14.0 % (0.0-7.3) H 07/06/16 04:55 Eosinophils % (Manual) 1.0 % (0.0-4.3) 07/06/16 04:55 Basophils % (Manual) 0 % (0.0-1.8) 07/06/16 04:55 Metamyelocytes % 1.0 % 07/06/16 04:55 Myelocytes % 2.0 % 07/06/16 04:55 Promyelocytes % 0 % 07/06/16 04:55 Blast Cells % 0 % 07/06/16 04:55 Nucleated RBC % Not Reportable 07/06/16 04:55 Seg Neutrophils # 3.4 K/mm3 (1.8-7.7) 07/05/16 04:45 Seg Neutrophils # Man 2.7 K/mm3 (1.8-7.7) 07/06/16 04:55 Band Neutrophils # 0.5 K/mm3 07/06/16 04:55 Lymphocytes # (Manual) 0.6 K/mm3 (1.2-5.4) L 07/06/16 04:55 Abs React Lymphs (Man) 0.1 K/mm3 07/06/16 04:55 Monocytes # (Manual) 0.7 K/mm3 (0.0-0.8) 07/06/16 04:55 Eosinophils # (Manual) 0.0 K/mm3 (0.0-0.4) 07/06/16 04:55 Basophils # (Manual) 0.0 K/mm3 (0.0-0.1) 07/06/16 04:55 Metamyelocytes # 0.0 K/mm3 07/06/16 04:55 Myelocytes # 0.1 K/mm3 07/06/16 04:55 Promyelocytes # 0.0 K/mm3 07/06/16 04:55 Blast Cells # 0.0 K/mm3 07/06/16 04:55 WBC Morphology Not Reportable 07/06/16 04:55 Hypersegmented Neuts Not Reportable 07/06/16 04:55 Hyposegmented Neuts Not Reportable 07/06/16 04:55 Hypogranular Neuts Not Reportable 07/06/16 04:55 Smudge Cells Not Reportable 07/06/16 04:55 Toxic Granulation Not Reportable 07/06/16 04:55 Toxic Vacuolation Not Reportable 07/06/16 04:55 Dohle Bodies Not Reportable 07/06/16 04:55 Pelger-Huet Anomaly Not Reportable 07/06/16 04:55 Binh Rods Not Reportable 07/06/16 04:55 Platelet Estimate Appears normal 07/06/16 04:55 Clumped Platelets Not Reportable 07/06/16 04:55 Plt Clumps, EDTA Not Reportable 07/06/16 04:55 Large Platelets Not Reportable 07/06/16 04:55 Giant Platelets Not Reportable 07/06/16 04:55 Platelet Satelliting Not Reportable 07/06/16 04:55 Plt Morphology Comment Not Reportable 07/06/16 04:55 RBC Morphology Not Reportable 07/06/16 04:55 Dimorphic RBCs Not Reportable 07/06/16 04:55 Polychromasia Not Reportable 07/06/16 04:55 Hypochromasia Not Reportable 07/06/16 04:55 Poikilocytosis Not Reportable 07/06/16 04:55 Anisocytosis 1+ 07/06/16 04:55 Microcytosis Not Reportable 07/06/16 04:55 Macrocytosis Not Reportable 07/06/16 04:55 Spherocytes 1+ 07/06/16 04:55 Pappenheimer Bodies Not Reportable 07/06/16 04:55 Sickle Cells Not Reportable 07/06/16 04:55 Target Cells Not Reportable 07/06/16 04:55 Tear Drop Cells Not Reportable 07/06/16 04:55 Ovalocytes Not Reportable 07/06/16 04:55 Helmet Cells Not Reportable 07/06/16 04:55 Figueroa-[place] Bodies Not Reportable 07/06/16 04:55 [place] Rings Not Reportable 07/06/16 04:55 [place] Cells 1+ 07/06/16 04:55 Bite Cells Not Reportable 07/06/16 04:55 Crenated Cell Not Reportable 07/06/16 04:55 Elliptocytes Not Reportable 07/06/16 04:55 Acanthocytes (Spur) Not Reportable 07/06/16 04:55 Rouleaux Not Reportable 07/06/16 04:55 Hemoglobin C Crystals Not Reportable 07/06/16 04:55 Schistocytes Not Reportable 07/06/16 04:55 Malaria parasites Not Reportable 07/06/16 04:55 Kristofer Bodies Not Reportable 07/06/16 04:55 Hem Pathologist Commnt No 07/06/16 04:55 PT 13.2 Sec. (12.2-14.9) 07/01/16 09:41 INR 1.01 (0.87-1.13) 07/01/16 09:41 Sodium 131 mmol/L (137-145) L 07/06/16 04:55 Potassium 4.7 mmol/L (3.6-5.0) D 07/06/16 04:55 Chloride 95.7 mmol/L (98-107) L 07/06/16 04:55 Carbon Dioxide 22 mmol/L (22-30) 07/06/16 04:55 Anion Gap 18 mmol/L 07/06/16 04:55 BUN 16 mg/dL (9-20) 07/06/16 04:55 Creatinine 0.7 mg/dL (0.8-1.5) L 07/06/16 04:55 Estimated GFR > 60 ml/min 07/06/16 04:55 BUN/Creatinine Ratio 22.85 % 07/06/16 04:55 Glucose 163 mg/dL (75-100) H 07/06/16 04:55 POC Glucose 115 (70-105) H 07/06/16 11:32 Hemoglobin A1c 6.4 % (4-6) H 07/03/16 05:07 Calcium 7.8 mg/dL (8.4-10.2) L 07/06/16 04:55 Phosphorus 4.3 mg/dL (2.5-4.5) 07/03/16 05:07 Magnesium 2.3 mg/dL (1.7-2.3) 07/03/16 05:07 Total Bilirubin 0.6 mg/dL (0.1-1.2) 07/06/16 04:55 AST 23 units/L (5-40) 07/06/16 04:55 ALT 49 units/L (7-56) 07/06/16 04:55 Alkaline Phosphatase 71 units/L (35-129) 07/06/16 04:55 Total Creatine Kinase 80 units/L (55-170) 07/01/16 23:32 CK-MB (CK-2) 4.7 ng/mL (0.0-4.0) H 07/01/16 23:32 CK-MB (CK-2) Rel Index 5.8 (0-4) H 07/01/16 23:32 Troponin T < 0.010 ng/mL (0.00-0.029) 07/01/16 23:32 NT-Pro-B Natriuret Pep 246.7 pg/mL (0-900) 07/01/16 15:57 Total Protein 6.2 g/dL (6.3-8.2) L 07/06/16 04:55 Albumin 3.2 g/dL (3.9-5) L 07/06/16 04:55 Albumin/Globulin Ratio 1.1 % 07/06/16 04:55 Amylase 22 units/L (27-131) L 07/02/16 16:16 Lipase 21 units/L (13-60) 07/02/16 16:16
[2016-07-07] MEDS: MINERAL OIL PO SCH ×5 (01:46→22:32)
[2016-07-07] MEDS: KCL 30 MEQ in D5NS 1,000 ML IV SCH ×2 (04:11→22:31)
[2016-07-07] MEDS: HEPARIN SUB-Q SCH ×2 (05:38→22:32)
[2016-07-07 06:54] LABS: Hematocrit 41.8 % (35.5-45.6); Hemoglobin 14.1 gm/dl (11.8-15.2); Mean Corpuscular HGB Conc 34 % (32-34); Mean Corpuscular Hemoglobin 31 pg (28-32); Mean Corpuscular Volume 93 fl (84-94); Platelet Count 283 K/mm3 (140-440); Red Blood Count 4.51 M/mm3 (3.65-5.03); Red Cell Distribution Width 14.3 % (13.2-15.2); White Blood Count 4.8 K/mm3 (4.5-11.0)
[2016-07-07 07:19] LABS: Alanine Aminotransferase 42 units/L (7-56); Albumin 3.1 g/dL (3.9-5); Alkaline Phosphatase 82 units/L (35-129); Anion Gap 19 mmol/L; Bilirubin,Total 0.6 mg/dL (0.1-1.2); Blood Urea Nitrogen 12 mg/dL (9-20); Calcium 8.4 mg/dL (8.4-10.2); Carbon Dioxide 25 mmol/L (22-30); Chloride 100.9 mmol/L (98-107); Glucose 155 mg/dL (75-100); Potassium 4.5 mmol/L (3.6-5.0); Sodium 140 mmol/L (137-145); Total Protein 6.3 g/dL (6.3-8.2)
[2016-07-07 08:37] LABS: Anisocytosis 1+; Basophils % (Manual) 0 % (0.0-1.8); Blastocytes % (Manual) 0 %; Diff Status Complete; Platelet Estimate Consistent w Auto
[2016-07-07] MEDS: NOVOLOG SUB-Q SCH ×4 (08:42→22:10)
[2016-07-07] MEDS: PEPCID IV SCH ×2 (09:28→22:32)
[2016-07-07] MEDS: ZOFRAN IV PRN ×2 (13:51→17:37)
--- NOTE | 2016-07-07 14:55 | Progress Note ---
Assessment and Plan Assessment and plan: (1) Acute small bowel obstruction Current Visit: Yes Status: Acute Qualifiers: Acute renal failure type: unspecified Qualified Code(s): N17.9 - Acute kidney failure, unspecified Plan to address problem: s/p abdominal surgery on 07/06/16 SBO due abdominal volvulus IV fluids for now keep NPO, early ambulation NG suction drained about 1500cc will follow further surgery recommendation (2) Acute chest pain Current Visit: Yes Status: Acute Plan to address problem: Chest pain protocol followed Lexiscan was normal could be related to SBO (3) HTN (hypertension) Current Visit: Yes Status: Chronic Qualifiers: Hypertension type: essential hypertension Qualified Code(s): I10 - Essential (primary) hypertension Plan to address problem: cont to monitor BP q shift (4) T2DM (type 2 diabetes mellitus) Current Visit: Yes Status: Chronic Qualifiers: Diabetes mellitus complication status: without complication Diabetes mellitus complication detail: D Diabetic retinopathy severity: D Proliferative retinopathy type: P Diabetes mellitus macular edema: D Diabetes mellitus shelter insulin use: D Laterality: L Chronic kidney disease stage: C Plan to address problem: SSI for now, as he is NPO (5) Acute renal failure Current Visit: Yes Status: resolved Qualifiers: Acute renal failure type: unspecified Qualified Code(s): N17.9 - Acute kidney failure, unspecified Plan to address problem: IV fluids for now, Cr level stable (6) hyponatremia and hypokalemia Current Visit: Yes Status: Acute Plan to address problem: cont IV fluid and replace potassium as needed Monitor BMP DVT prophylaxis with heparin History Interval history: Patient seen and examined. Medical records and medication list reviewed. He did not have any bowel movement since Friday s/p exploratory abdominal surgery on 07/05/16 but pt still does not have any BM, no flatus Discussed plan of care at bedside with patient. instructed nurse to ambulate the pt and to sit in the chair Hospitalist Physical - Physical exam Narrative exam: GENERAL: The male lying on bed appeared to be in moderate discomfort. HEENT: Normocephalic. Atraumatic. No conjunctival congestion or icterus. Patient has moist mucous membranes. NG tube in place. NECK: Supple. Trachea midline. CHEST/LUNGS: Clear to auscultated bilaterally, breathing nonlabored. No wheezes crackles or rhonchi. HEART/CARDIOVASCULAR: Regular in rate and rhythm. S1 and S2 positive. ABDOMEN: Abdomen is distended nontender. Patient has been very hypoactive bowel sounds. surgical dressing in place. SKIN: There is no rash. Warm and dry. NEURO: No focal motor deficit. Follows command. MUSCULOSKELETAL: No joint effusion or tenderness. EXTRIMITY: No edema, no cyanosis or clubbing. PSYCH: Cooperative. - Constitutional Vitals: Temp Pulse Resp BP Pulse Ox 99.2 F 95 H 18 158/89 100 07/07/16 08:00 07/07/16 08:00 07/07/16 08:00 07/07/16 08:00 07/07/16 08:00 General appearance: Present: no acute distress, well-nourished Results - Labs CBC & Chem 7: 07/07/16 06:05 07/07/16 06:05 Labs: Laboratory Last Values WBC 4.8 K/mm3 (4.5-11.0) 07/07/16 06:05 RBC 4.51 M/mm3 (3.65-5.03) 07/07/16 06:05 Hgb 14.1 gm/dl (11.8-15.2) 07/07/16 06:05 Hct 41.8 % (35.5-45.6) 07/07/16 06:05 MCV 93 fl (84-94) 07/07/16 06:05 MCH 31 pg (28-32) 07/07/16 06:05 MCHC 34 % (32-34) 07/07/16 06:05 RDW 14.3 % (13.2-15.2) 07/07/16 06:05 Plt Count 283 K/mm3 (140-440) 07/07/16 06:05 Lymph % (Auto) 15.9 % (13.4-35.0) 07/05/16 04:45 [place] % (Auto) Machine Former 07/07/16 06:05 Eos % (Auto) 1.1 % (0.0-4.3) 07/05/16 04:45 Baso % (Auto) 0.4 % (0.0-1.8) 07/05/16 04:45 Lymph # 0.8 K/mm3 (1.2-5.4) L 07/05/16 04:45 [place] # 0.7 K/mm3 (0.0-0.8) 07/05/16 04:45 Eos # 0.1 K/mm3 (0.0-0.4) 07/05/16 04:45 Baso # 0.0 K/mm3 (0.0-0.1) 07/05/16 04:45 Add Manual Diff Complete 07/07/16 06:05 Total Counted 100 07/07/16 06:05 Seg Neutrophils % 69.1 % (40.0-70.0) 07/05/16 04:45 Seg Neuts % (Manual) 69.0 % (40.0-70.0) 07/07/16 06:05 Band Neutrophils % 1.0 % 07/07/16 06:05 Lymphocytes % (Manual) 13.0 % (13.4-35.0) L 07/07/16 06:05 Reactive Lymphs % (Man) 0 % 07/07/16 06:05 Monocytes % (Manual) 15.0 % (0.0-7.3) H 07/07/16 06:05 Eosinophils % (Manual) 2.0 % (0.0-4.3) 07/07/16 06:05 Basophils % (Manual) 0 % (0.0-1.8) 07/07/16 06:05 Metamyelocytes % 0 % 07/07/16 06:05 Myelocytes % 0 % 07/07/16 06:05 Promyelocytes % 0 % 07/07/16 06:05 Blast Cells % 0 % 07/07/16 06:05 Nucleated RBC % Not Reportable 07/07/16 06:05 Seg Neutrophils # 3.4 K/mm3 (1.8-7.7) 07/05/16 04:45 Seg Neutrophils # Man 3.3 K/mm3 (1.8-7.7) 07/07/16 06:05 Band Neutrophils # 0.0 K/mm3 07/07/16 06:05 Lymphocytes # (Manual) 0.6 K/mm3 (1.2-5.4) L 07/07/16 06:05 Abs React Lymphs (Man) 0.0 K/mm3 07/07/16 06:05 Monocytes # (Manual) 0.7 K/mm3 (0.0-0.8) 07/07/16 06:05 Eosinophils # (Manual) 0.1 K/mm3 (0.0-0.4) 07/07/16 06:05 Basophils # (Manual) 0.0 K/mm3 (0.0-0.1) 07/07/16 06:05 Metamyelocytes # 0.0 K/mm3 07/07/16 06:05 Myelocytes # 0.0 K/mm3 07/07/16 06:05 Promyelocytes # 0.0 K/mm3 07/07/16 06:05 Blast Cells # 0.0 K/mm3 07/07/16 06:05 WBC Morphology Not Reportable 07/07/16 06:05 Hypersegmented Neuts Not Reportable 07/07/16 06:05 Hyposegmented Neuts Not Reportable 07/07/16 06:05 Hypogranular Neuts Not Reportable 07/07/16 06:05 Smudge Cells Not Reportable 07/07/16 06:05 Toxic Granulation Not Reportable 07/07/16 06:05 Toxic Vacuolation Not Reportable 07/07/16 06:05 Dohle Bodies Not Reportable 07/07/16 06:05 Pelger-Huet Anomaly Not Reportable 07/07/16 06:05 Binh Rods Not Reportable 07/07/16 06:05 Platelet Estimate Consistent w auto 07/07/16 06:05 Clumped Platelets Not Reportable 07/07/16 06:05 Plt Clumps, EDTA Not Reportable 07/07/16 06:05 Large Platelets Not Reportable 07/07/16 06:05 Giant Platelets Not Reportable 07/07/16 06:05 Platelet Satelliting Not Reportable 07/07/16 06:05 Plt Morphology Comment Not Reportable 07/07/16 06:05 RBC Morphology Not Reportable 07/07/16 06:05 Dimorphic RBCs Not Reportable 07/07/16 06:05 Polychromasia Not Reportable 07/07/16 06:05 Hypochromasia Not Reportable 07/07/16 06:05 Poikilocytosis Not Reportable 07/07/16 06:05 Anisocytosis 1+ 07/07/16 06:05 Microcytosis Not Reportable 07/07/16 06:05 Macrocytosis Not Reportable 07/07/16 06:05 Spherocytes Not Reportable 07/07/16 06:05 Pappenheimer Bodies Not Reportable 07/07/16 06:05 Sickle Cells Not Reportable 07/07/16 06:05 Target Cells Not Reportable 07/07/16 06:05 Tear Drop Cells Not Reportable 07/07/16 06:05 Ovalocytes Not Reportable 07/07/16 06:05 Helmet Cells Not Reportable 07/07/16 06:05 Figueroa-Toxey Bodies Not Reportable 07/07/16 06:05 [place] Rings Not Reportable 07/07/16 06:05 [place] Cells Not Reportable 07/07/16 06:05 Bite Cells Not Reportable 07/07/16 06:05 Crenated Cell Not Reportable 07/07/16 06:05 Elliptocytes Not Reportable 07/07/16 06:05 Acanthocytes (Spur) Not Reportable 07/07/16 06:05 Rouleaux Not Reportable 07/07/16 06:05 Hemoglobin C Crystals Not Reportable 07/07/16 06:05 Schistocytes Not Reportable 07/07/16 06:05 Malaria parasites Not Reportable 07/07/16 06:05 Kristofer Bodies Not Reportable 07/07/16 06:05 Hem Pathologist Commnt No 07/07/16 06:05 PT 13.2 Sec. (12.2-14.9) 07/01/16 09:41 INR 1.01 (0.87-1.13) 07/01/16 09:41 Sodium 140 mmol/L (137-145) D 07/07/16 06:05 Potassium 4.5 mmol/L (3.6-5.0) 07/07/16 06:05 Chloride 100.9 mmol/L (98-107) 07/07/16 06:05 Carbon Dioxide 25 mmol/L (22-30) 07/07/16 06:05 Anion Gap 19 mmol/L 07/07/16 06:05 BUN 12 mg/dL (9-20) 07/07/16 06:05 Creatinine 0.8 mg/dL (0.8-1.5) 07/07/16 06:05 Estimated GFR > 60 ml/min 07/07/16 06:05 BUN/Creatinine Ratio 15.00 % 07/07/16 06:05 Glucose 155 mg/dL (75-100) H 07/07/16 06:05 POC Glucose 135 (70-105) H 07/07/16 11:53 Hemoglobin A1c 6.4 % (4-6) H 07/03/16 05:07 Calcium 8.4 mg/dL (8.4-10.2) 07/07/16 06:05 Phosphorus 4.3 mg/dL (2.5-4.5) 07/03/16 05:07 Magnesium 2.3 mg/dL (1.7-2.3) 07/03/16 05:07 Total Bilirubin 0.6 mg/dL (0.1-1.2) 07/07/16 06:05 AST 24 units/L (5-40) 07/07/16 06:05 ALT 42 units/L (7-56) 07/07/16 06:05 Alkaline Phosphatase 82 units/L (35-129) 07/07/16 06:05 Total Creatine Kinase 80 units/L (55-170) 07/01/16 23:32 CK-MB (CK-2) 4.7 ng/mL (0.0-4.0) H 07/01/16 23:32 CK-MB (CK-2) Rel Index 5.8 (0-4) H 07/01/16 23:32 Troponin T < 0.010 ng/mL (0.00-0.029) 07/01/16 23:32 NT-Pro-B Natriuret Pep 246.7 pg/mL (0-900) 07/01/16 15:57 Total Protein 6.3 g/dL (6.3-8.2) 07/07/16 06:05 Albumin 3.1 g/dL (3.9-5) L 07/07/16 06:05 Albumin/Globulin Ratio 1.0 % 07/07/16 06:05 Amylase 22 units/L (27-131) L 07/02/16 16:16 Lipase 21 units/L (13-60) 07/02/16 16:16
[2016-07-08] MEDS: MINERAL OIL PO SCH ×7 (03:04→20:22)
[2016-07-08 05:21] LABS: Basophils % (Auto) 0.3 % (0.0-1.8); Eosinophils % (Auto) 0.4 % (0.0-4.3); Hematocrit 40.9 % (35.5-45.6); Mean Corpuscular HGB Conc 34 % (32-34); Mean Corpuscular Hemoglobin 31 pg (28-32); Mean Corpuscular Volume 92 fl (84-94); Platelet Count 314 K/mm3 (140-440); Red Blood Count 4.46 M/mm3 (3.65-5.03); White Blood Count 7.6 K/mm3 (4.5-11.0)
[2016-07-08 05:35] LABS: Anion Gap 17 mmol/L; BUN/Creatinine Ratio 14.44; Blood Urea Nitrogen 13 mg/dL (9-20); Calcium 8.8 mg/dL (8.4-10.2); Carbon Dioxide 30 mmol/L (22-30); Chloride 101.9 mmol/L (98-107); Glucose 157 mg/dL (75-100); Potassium 4.4 mmol/L (3.6-5.0); Sodium 144 mmol/L (137-145)
[2016-07-08] MEDS: HEPARIN SUB-Q SCH ×4 (05:59→21:43)
[2016-07-08] MEDS: NOVOLOG SUB-Q SCH ×4 (11:57→21:53)
[2016-07-08] MEDS: PEPCID IV SCH ×2 (11:57→21:43)
--- NOTE | 2016-07-08 13:48 | Progress Note ---
Assessment and Plan POD #2 Pt feeling "O.K" c/o nausea neg flatus NG drainage 1150 cc Abd non distended. non tender. very hypoactive BS stable ambulation monitor I&O's and electrolytes continue present care Selected Entries 07/08/16 12:15 Temperature 98.0 F Pulse Rate [ 103 H Left Radial] Respiratory 18 Rate Blood Pressure 147/83 [Right Arm] Laboratory Tests 07/08/16 07/08/16 04:57 04:57 WBC 7.6 Hgb 14.0 Hct 40.9 Sodium 144 Potassium 4.4 Chloride 101.9 Carbon Dioxide 30 Anion Gap 17 BUN 13 Creatinine 0.9 Objective Vital Signs - 12hr 07/08/16 07/08/16 07/08/16 06:01 08:36 12:15 Temperature 98.4 F 97.6 F 98.0 F Pulse Rate [ 103 H Left Radial] Pulse Rate [ 104 H 93 H Right Radial] Respiratory 18 18 18 Rate Blood Pressure 146/86 161/86 147/83 [Right Arm] O2 Sat by Pulse 96 99 98 Oximetry - Labs 07/08/16 04:57 07/08/16 04:57 Diabetes panel 07/08/16 Range/Units 04:57 Sodium 144 (137-145) mmol/L Potassium 4.4 (3.6-5.0) mmol/L Chloride 101.9 (98-107) mmol/L Carbon Dioxide 30 (22-30) mmol/L BUN 13 (9-20) mg/dL Creatinine 0.9 (0.8-1.5) mg/dL Glucose 157 H (75-100) mg/dL Calcium 8.8 (8.4-10.2) mg/dL Calcium panel 07/08/16 Range/Units 04:57 Calcium 8.8 (8.4-10.2) mg/dL Pituitary panel 07/08/16 Range/Units 04:57 Sodium 144 (137-145) mmol/L Potassium 4.4 (3.6-5.0) mmol/L Chloride 101.9 (98-107) mmol/L Carbon Dioxide 30 (22-30) mmol/L BUN 13 (9-20) mg/dL Creatinine 0.9 (0.8-1.5) mg/dL Glucose 157 H (75-100) mg/dL Calcium 8.8 (8.4-10.2) mg/dL Adrenal panel 07/08/16 Range/Units 04:57 Sodium 144 (137-145) mmol/L Potassium 4.4 (3.6-5.0) mmol/L Chloride 101.9 (98-107) mmol/L Carbon Dioxide 30 (22-30) mmol/L BUN 13 (9-20) mg/dL Creatinine 0.9 (0.8-1.5) mg/dL Glucose 157 H (75-100) mg/dL Calcium 8.8 (8.4-10.2) mg/dL
--- NOTE | 2016-07-08 16:26 | Progress Note ---
Assessment and Plan Assessment and plan: (1) Acute small bowel obstruction Current Visit: Yes Status: Acute Plan to address problem: s/p abdominal surgery on 07/06/16 since surgery no BM/flatus SBO was due abdominal volvulus IV fluids for now keep NPO, early ambulation cont NG suction follow further surgery recommendation (2) Acute chest pain Current Visit: Yes Status: resolved Plan to address problem: Chest pain protocol followed Lexiscan was normal could be related to SBO (3) HTN (hypertension) Current Visit: Yes Status: Chronic Qualifiers: Hypertension type: essential hypertension Qualified Code(s): I10 - Essential (primary) hypertension Plan to address problem: cont to monitor BP q shift (4) T2DM (type 2 diabetes mellitus) Current Visit: Yes Status: Chronic Qualifiers: Diabetes mellitus complication status: without complication Diabetes mellitus complication detail: D Diabetic retinopathy severity: D Proliferative retinopathy type: P Diabetes mellitus macular edema: D Diabetes mellitus senior care insulin use: D Laterality: L Chronic kidney disease stage: C Plan to address problem: SSI for now, as he is NPO (5) Acute renal failure Current Visit: Yes Status: resolved Qualifiers: Acute renal failure type: unspecified Qualified Code(s): N17.9 - Acute kidney failure, unspecified Plan to address problem: likely due to vasomotor nephropathy IV fluids for now, Cr level stable (6) hyponatremia and hypokalemia Current Visit: Yes Status: resolved Plan to address problem: likely due to dehydration cont IV fluid and replace potassium as needed Monitor BMP DVT prophylaxis with heparin History Interval history: Patient seen and examined. Medical records and medication list reviewed. He did not have any bowel movement since Friday s/p exploratory abdominal surgery on 07/05/16 but pt still does not have any BM, no flatus Discussed plan of care at bedside with patient. instructed nurse to ambulate the pt and to sit in the chair Hospitalist Physical - Physical exam Narrative exam: GENERAL: The male lying on bed appeared to be in moderate discomfort. HEENT: Normocephalic. Atraumatic. No conjunctival congestion or icterus. Patient has moist mucous membranes. NG tube in place. NECK: Supple. Trachea midline. CHEST/LUNGS: Clear to auscultated bilaterally, breathing nonlabored. No wheezes crackles or rhonchi. HEART/CARDIOVASCULAR: Regular in rate and rhythm. S1 and S2 positive. ABDOMEN: Abdomen is distended nontender. Patient has been very hypoactive bowel sounds. surgical dressing in place. SKIN: There is no rash. Warm and dry. NEURO: No focal motor deficit. Follows command. MUSCULOSKELETAL: No joint effusion or tenderness. EXTRIMITY: No edema, no cyanosis or clubbing. PSYCH: Cooperative. - Constitutional Vitals: Temp Pulse Resp BP Pulse Ox 98.0 F 107 H 18 147/83 98 07/08/16 12:15 07/08/16 14:00 07/08/16 12:15 07/08/16 12:15 07/08/16 12:15 General appearance: Present: no acute distress, well-nourished Results - Labs CBC & Chem 7: 07/08/16 04:57 07/08/16 04:57 Labs: Laboratory Last Values WBC 7.6 K/mm3 (4.5-11.0) 07/08/16 04:57 RBC 4.46 M/mm3 (3.65-5.03) 07/08/16 04:57 Hgb 14.0 gm/dl (11.8-15.2) 07/08/16 04:57 Hct 40.9 % (35.5-45.6) 07/08/16 04:57 MCV 92 fl (84-94) 07/08/16 04:57 MCH 31 pg (28-32) 07/08/16 04:57 MCHC 34 % (32-34) 07/08/16 04:57 RDW 14.0 % (13.2-15.2) 07/08/16 04:57 Plt Count 314 K/mm3 (140-440) 07/08/16 04:57 Lymph % (Auto) 12.5 % (13.4-35.0) L 07/08/16 04:57 [place] % (Auto) 12.5 % (0.0-7.3) H 07/08/16 04:57 Eos % (Auto) 0.4 % (0.0-4.3) 07/08/16 04:57 Baso % (Auto) 0.3 % (0.0-1.8) 07/08/16 04:57 Lymph # 0.9 K/mm3 (1.2-5.4) L 07/08/16 04:57 [place] # 0.9 K/mm3 (0.0-0.8) H 07/08/16 04:57 Eos # 0.0 K/mm3 (0.0-0.4) 07/08/16 04:57 Baso # 0.0 K/mm3 (0.0-0.1) 07/08/16 04:57 Add Manual Diff Complete 07/07/16 06:05 Total Counted 100 07/07/16 06:05 Seg Neutrophils % 74.3 % (40.0-70.0) H 07/08/16 04:57 Seg Neuts % (Manual) 69.0 % (40.0-70.0) 07/07/16 06:05 Band Neutrophils % 1.0 % 07/07/16 06:05 Lymphocytes % (Manual) 13.0 % (13.4-35.0) L 07/07/16 06:05 Reactive Lymphs % (Man) 0 % 07/07/16 06:05 Monocytes % (Manual) 15.0 % (0.0-7.3) H 07/07/16 06:05 Eosinophils % (Manual) 2.0 % (0.0-4.3) 07/07/16 06:05 Basophils % (Manual) 0 % (0.0-1.8) 07/07/16 06:05 Metamyelocytes % 0 % 07/07/16 06:05 Myelocytes % 0 % 07/07/16 06:05 Promyelocytes % 0 % 07/07/16 06:05 Blast Cells % 0 % 07/07/16 06:05 Nucleated RBC % Not Reportable 07/07/16 06:05 Seg Neutrophils # 5.6 K/mm3 (1.8-7.7) 07/08/16 04:57 Seg Neutrophils # Man 3.3 K/mm3 (1.8-7.7) 07/07/16 06:05 Band Neutrophils # 0.0 K/mm3 07/07/16 06:05 Lymphocytes # (Manual) 0.6 K/mm3 (1.2-5.4) L 07/07/16 06:05 Abs React Lymphs (Man) 0.0 K/mm3 07/07/16 06:05 Monocytes # (Manual) 0.7 K/mm3 (0.0-0.8) 07/07/16 06:05 Eosinophils # (Manual) 0.1 K/mm3 (0.0-0.4) 07/07/16 06:05 Basophils # (Manual) 0.0 K/mm3 (0.0-0.1) 07/07/16 06:05 Metamyelocytes # 0.0 K/mm3 07/07/16 06:05 Myelocytes # 0.0 K/mm3 07/07/16 06:05 Promyelocytes # 0.0 K/mm3 07/07/16 06:05 Blast Cells # 0.0 K/mm3 07/07/16 06:05 WBC Morphology Not Reportable 07/07/16 06:05 Hypersegmented Neuts Not Reportable 07/07/16 06:05 Hyposegmented Neuts Not Reportable 07/07/16 06:05 Hypogranular Neuts Not Reportable 07/07/16 06:05 Smudge Cells Not Reportable 07/07/16 06:05 Toxic Granulation Not Reportable 07/07/16 06:05 Toxic Vacuolation Not Reportable 07/07/16 06:05 Dohle Bodies Not Reportable 07/07/16 06:05 Pelger-Huet Anomaly Not Reportable 07/07/16 06:05 Binh Rods Not Reportable 07/07/16 06:05 Platelet Estimate Consistent w auto 07/07/16 06:05 Clumped Platelets Not Reportable 07/07/16 06:05 Plt Clumps, EDTA Not Reportable 07/07/16 06:05 Large Platelets Not Reportable 07/07/16 06:05 Giant Platelets Not Reportable 07/07/16 06:05 Platelet Satelliting Not Reportable 07/07/16 06:05 Plt Morphology Comment Not Reportable 07/07/16 06:05 RBC Morphology Not Reportable 07/07/16 06:05 Dimorphic RBCs Not Reportable 07/07/16 06:05 Polychromasia Not Reportable 07/07/16 06:05 Hypochromasia Not Reportable 07/07/16 06:05 Poikilocytosis Not Reportable 07/07/16 06:05 Anisocytosis 1+ 07/07/16 06:05 Microcytosis Not Reportable 07/07/16 06:05 Macrocytosis Not Reportable 07/07/16 06:05 Spherocytes Not Reportable 07/07/16 06:05 Pappenheimer Bodies Not Reportable 07/07/16 06:05 Sickle Cells Not Reportable 07/07/16 06:05 Target Cells Not Reportable 07/07/16 06:05 Tear Drop Cells Not Reportable 07/07/16 06:05 Ovalocytes Not Reportable 07/07/16 06:05 Helmet Cells Not Reportable 07/07/16 06:05 Figueroa-Dasher Bodies Not Reportable 07/07/16 06:05 [place] Rings Not Reportable 07/07/16 06:05 [place] Cells Not Reportable 07/07/16 06:05 Bite Cells Not Reportable 07/07/16 06:05 Crenated Cell Not Reportable 07/07/16 06:05 Elliptocytes Not Reportable 07/07/16 06:05 Acanthocytes (Spur) Not Reportable 07/07/16 06:05 Rouleaux Not Reportable 07/07/16 06:05 Hemoglobin C Crystals Not Reportable 07/07/16 06:05 Schistocytes Not Reportable 07/07/16 06:05 Malaria parasites Not Reportable 07/07/16 06:05 Kristofer Bodies Not Reportable 07/07/16 06:05 Hem Pathologist Commnt No 07/07/16 06:05 PT 13.2 Sec. (12.2-14.9) 07/01/16 09:41 INR 1.01 (0.87-1.13) 07/01/16 09:41 Sodium 144 mmol/L (137-145) 07/08/16 04:57 Potassium 4.4 mmol/L (3.6-5.0) 07/08/16 04:57 Chloride 101.9 mmol/L (98-107) 07/08/16 04:57 Carbon Dioxide 30 mmol/L (22-30) 07/08/16 04:57 Anion Gap 17 mmol/L 07/08/16 04:57 BUN 13 mg/dL (9-20) 07/08/16 04:57 Creatinine 0.9 mg/dL (0.8-1.5) 07/08/16 04:57 Estimated GFR > 60 ml/min 07/08/16 04:57 BUN/Creatinine Ratio 14.44 % 07/08/16 04:57 Glucose 157 mg/dL (75-100) H 07/08/16 04:57 POC Glucose 135 (70-105) H 07/07/16 21:47 Hemoglobin A1c 6.4 % (4-6) H 07/03/16 05:07 Calcium 8.8 mg/dL (8.4-10.2) 07/08/16 04:57 Phosphorus 4.3 mg/dL (2.5-4.5) 07/03/16 05:07 Magnesium 2.3 mg/dL (1.7-2.3) 07/03/16 05:07 Total Bilirubin 0.6 mg/dL (0.1-1.2) 07/07/16 06:05 AST 24 units/L (5-40) 07/07/16 06:05 ALT 42 units/L (7-56) 07/07/16 06:05 Alkaline Phosphatase 82 units/L (35-129) 07/07/16 06:05 Total Creatine Kinase 80 units/L (55-170) 07/01/16 23:32 CK-MB (CK-2) 4.7 ng/mL (0.0-4.0) H 07/01/16 23:32 CK-MB (CK-2) Rel Index 5.8 (0-4) H 07/01/16 23:32 Troponin T < 0.010 ng/mL (0.00-0.029) 07/01/16 23:32 NT-Pro-B Natriuret Pep 246.7 pg/mL (0-900) 07/01/16 15:57 Total Protein 6.3 g/dL (6.3-8.2) 07/07/16 06:05 Albumin 3.1 g/dL (3.9-5) L 07/07/16 06:05 Albumin/Globulin Ratio 1.0 % 07/07/16 06:05 Amylase 22 units/L (27-131) L 07/02/16 16:16 Lipase 21 units/L (13-60) 07/02/16 16:16
[2016-07-08] MEDS: D5NS0.3 1,000 ML IV SCH (21:44)
[2016-07-09] MEDS: MINERAL OIL PO SCH ×4 (00:22→12:06)
[2016-07-09] MEDS: HEPARIN SUB-Q SCH ×3 (05:26→21:12)
[2016-07-09 06:28] LABS: Blood Urea Nitrogen 17 mg/dL (9-20); Calcium 8.7 mg/dL (8.4-10.2); Carbon Dioxide 33 mmol/L (22-30); Chloride 93.8 mmol/L (98-107); Glucose 144 mg/dL (75-100); Sodium 142 mmol/L (137-145)
[2016-07-09 06:32] LABS: Anion Gap 20 mmol/L; Potassium 4.9 mmol/L (3.6-5.0)
[2016-07-09] MEDS: NOVOLOG SUB-Q SCH ×4 (08:15→21:12)
[2016-07-09] MEDS: PEPCID IV SCH ×2 (10:04→21:11)
--- NOTE | 2016-07-09 11:34 | Progress Note ---
Assessment and Plan Assessment and plan: Small bowel obstruction s/p exploratory lap, adhesiolysis around volvulus. No bowel movement yet. NPO, iv fluids. NG tube. Later discussed with Surgeon Chest pain. Stress test negative. hypertension. BP stable. Hypokalemia, resolved Acute kidney injury, now resolved. Cr 1.0 today DVT Prophylaxis Full code status History Interval history: Patient with small bowel obstruction s/p surgery on 07/05/16 No flatus, No bowel movement yet Hospitalist Physical - Physical exam Narrative exam: Gen: not in acute distress HEENT: normocephalic,atraumatic Neck :supple, no JVD Lungs: clear to auscultation bilaterally, no crackles no wheezes Heart: S1 and S2 regular, no murmurs no gallops, Abdomen: soft , mild tender, covered with dressing, abdominal binder, bowel sounds present Extremities: no edema, no clubbing or cyanosis Neuro: Awake alert oriented x 3 Psych: Normal mood - Constitutional Vitals: Temp Pulse Resp BP Pulse Ox 98.3 F 92 H 18 138/82 94 07/09/16 07:50 07/09/16 07:50 07/09/16 07:50 07/09/16 07:50 07/09/16 07:50 General appearance: Present: no acute distress, well-nourished Results - Labs CBC & Chem 7: 07/08/16 04:57 07/09/16 05:03 Labs: Laboratory Last Values WBC 7.6 K/mm3 (4.5-11.0) 07/08/16 04:57 RBC 4.46 M/mm3 (3.65-5.03) 07/08/16 04:57 Hgb 14.0 gm/dl (11.8-15.2) 07/08/16 04:57 Hct 40.9 % (35.5-45.6) 07/08/16 04:57 MCV 92 fl (84-94) 07/08/16 04:57 MCH 31 pg (28-32) 07/08/16 04:57 MCHC 34 % (32-34) 07/08/16 04:57 RDW 14.0 % (13.2-15.2) 07/08/16 04:57 Plt Count 314 K/mm3 (140-440) 07/08/16 04:57 Lymph % (Auto) 12.5 % (13.4-35.0) L 07/08/16 04:57 [place] % (Auto) 12.5 % (0.0-7.3) H 07/08/16 04:57 Eos % (Auto) 0.4 % (0.0-4.3) 07/08/16 04:57 Baso % (Auto) 0.3 % (0.0-1.8) 07/08/16 04:57 Lymph # 0.9 K/mm3 (1.2-5.4) L 07/08/16 04:57 [place] # 0.9 K/mm3 (0.0-0.8) H 07/08/16 04:57 Eos # 0.0 K/mm3 (0.0-0.4) 07/08/16 04:57 Baso # 0.0 K/mm3 (0.0-0.1) 07/08/16 04:57 Add Manual Diff Complete 07/07/16 06:05 Total Counted 100 07/07/16 06:05 Seg Neutrophils % 74.3 % (40.0-70.0) H 07/08/16 04:57 Seg Neuts % (Manual) 69.0 % (40.0-70.0) 07/07/16 06:05 Band Neutrophils % 1.0 % 07/07/16 06:05 Lymphocytes % (Manual) 13.0 % (13.4-35.0) L 07/07/16 06:05 Reactive Lymphs % (Man) 0 % 07/07/16 06:05 Monocytes % (Manual) 15.0 % (0.0-7.3) H 07/07/16 06:05 Eosinophils % (Manual) 2.0 % (0.0-4.3) 07/07/16 06:05 Basophils % (Manual) 0 % (0.0-1.8) 07/07/16 06:05 Metamyelocytes % 0 % 07/07/16 06:05 Myelocytes % 0 % 07/07/16 06:05 Promyelocytes % 0 % 07/07/16 06:05 Blast Cells % 0 % 07/07/16 06:05 Nucleated RBC % Not Reportable 07/07/16 06:05 Seg Neutrophils # 5.6 K/mm3 (1.8-7.7) 07/08/16 04:57 Seg Neutrophils # Man 3.3 K/mm3 (1.8-7.7) 07/07/16 06:05 Band Neutrophils # 0.0 K/mm3 07/07/16 06:05 Lymphocytes # (Manual) 0.6 K/mm3 (1.2-5.4) L 07/07/16 06:05 Abs React Lymphs (Man) 0.0 K/mm3 07/07/16 06:05 Monocytes # (Manual) 0.7 K/mm3 (0.0-0.8) 07/07/16 06:05 Eosinophils # (Manual) 0.1 K/mm3 (0.0-0.4) 07/07/16 06:05 Basophils # (Manual) 0.0 K/mm3 (0.0-0.1) 07/07/16 06:05 Metamyelocytes # 0.0 K/mm3 07/07/16 06:05 Myelocytes # 0.0 K/mm3 07/07/16 06:05 Promyelocytes # 0.0 K/mm3 07/07/16 06:05 Blast Cells # 0.0 K/mm3 07/07/16 06:05 WBC Morphology Not Reportable 07/07/16 06:05 Hypersegmented Neuts Not Reportable 07/07/16 06:05 Hyposegmented Neuts Not Reportable 07/07/16 06:05 Hypogranular Neuts Not Reportable 07/07/16 06:05 Smudge Cells Not Reportable 07/07/16 06:05 Toxic Granulation Not Reportable 07/07/16 06:05 Toxic Vacuolation Not Reportable 07/07/16 06:05 Dohle Bodies Not Reportable 07/07/16 06:05 Pelger-Huet Anomaly Not Reportable 07/07/16 06:05 Binh Rods Not Reportable 07/07/16 06:05 Platelet Estimate Consistent w auto 07/07/16 06:05 Clumped Platelets Not Reportable 07/07/16 06:05 Plt Clumps, EDTA Not Reportable 07/07/16 06:05 Large Platelets Not Reportable 07/07/16 06:05 Giant Platelets Not Reportable 07/07/16 06:05 Platelet Satelliting Not Reportable 07/07/16 06:05 Plt Morphology Comment Not Reportable 07/07/16 06:05 RBC Morphology Not Reportable 07/07/16 06:05 Dimorphic RBCs Not Reportable 07/07/16 06:05 Polychromasia Not Reportable 07/07/16 06:05 Hypochromasia Not Reportable 07/07/16 06:05 Poikilocytosis Not Reportable 07/07/16 06:05 Anisocytosis 1+ 07/07/16 06:05 Microcytosis Not Reportable 07/07/16 06:05 Macrocytosis Not Reportable 07/07/16 06:05 Spherocytes Not Reportable 07/07/16 06:05 Pappenheimer Bodies Not Reportable 07/07/16 06:05 Sickle Cells Not Reportable 07/07/16 06:05 Target Cells Not Reportable 07/07/16 06:05 Tear Drop Cells Not Reportable 07/07/16 06:05 Ovalocytes Not Reportable 07/07/16 06:05 Helmet Cells Not Reportable 07/07/16 06:05 [place] Bodies Not Reportable 07/07/16 06:05 [place] Rings Not Reportable 07/07/16 06:05 Melecio Cells Not Reportable 07/07/16 06:05 Bite Cells Not Reportable 07/07/16 06:05 Crenated Cell Not Reportable 07/07/16 06:05 Elliptocytes Not Reportable 07/07/16 06:05 Acanthocytes (Spur) Not Reportable 07/07/16 06:05 Rouleaux Not Reportable 07/07/16 06:05 Hemoglobin C Crystals Not Reportable 07/07/16 06:05 Schistocytes Not Reportable 07/07/16 06:05 Malaria parasites Not Reportable 07/07/16 06:05 Kristofer Bodies Not Reportable 07/07/16 06:05 Hem Pathologist Commnt No 07/07/16 06:05 PT 13.2 Sec. (12.2-14.9) 07/01/16 09:41 INR 1.01 (0.87-1.13) 07/01/16 09:41 Sodium 142 mmol/L (137-145) 07/09/16 05:03 Potassium 4.9 mmol/L (3.6-5.0) 07/09/16 05:03 Chloride 93.8 mmol/L (98-107) L 07/09/16 05:03 Carbon Dioxide 33 mmol/L (22-30) H 07/09/16 05:03 Anion Gap 20 mmol/L 07/09/16 05:03 BUN 17 mg/dL (9-20) 07/09/16 05:03 Creatinine 1.0 mg/dL (0.8-1.5) 07/09/16 05:03 Estimated GFR > 60 ml/min 07/09/16 05:03 BUN/Creatinine Ratio 17.00 % 07/09/16 05:03 Glucose 144 mg/dL (75-100) H 07/09/16 05:03 POC Glucose 145 (70-105) H 07/09/16 07:49 Hemoglobin A1c 6.4 % (4-6) H 07/03/16 05:07 Calcium 8.7 mg/dL (8.4-10.2) 07/09/16 05:03 Phosphorus 4.3 mg/dL (2.5-4.5) 07/03/16 05:07 Magnesium 2.3 mg/dL (1.7-2.3) 07/03/16 05:07 Total Bilirubin 0.6 mg/dL (0.1-1.2) 07/07/16 06:05 AST 24 units/L (5-40) 07/07/16 06:05 ALT 42 units/L (7-56) 07/07/16 06:05 Alkaline Phosphatase 82 units/L (35-129) 07/07/16 06:05 Total Creatine Kinase 80 units/L (55-170) 07/01/16 23:32 CK-MB (CK-2) 4.7 ng/mL (0.0-4.0) H 07/01/16 23:32 CK-MB (CK-2) Rel Index 5.8 (0-4) H 07/01/16 23:32 Troponin T < 0.010 ng/mL (0.00-0.029) 07/01/16 23:32 NT-Pro-B Natriuret Pep 246.7 pg/mL (0-900) 07/01/16 15:57 Total Protein 6.3 g/dL (6.3-8.2) 07/07/16 06:05 Albumin 3.1 g/dL (3.9-5) L 07/07/16 06:05 Albumin/Globulin Ratio 1.0 % 07/07/16 06:05 Amylase 22 units/L (27-131) L 07/02/16 16:16 Lipase 21 units/L (13-60) 07/02/16 16:16
[2016-07-09] MEDS: D5NS0.3 1,000 ML IV SCH ×2 (12:04→21:11)
--- NOTE | 2016-07-09 12:05 | Progress Note ---
Assessment and Plan POD # 3 Pt just had loose BM. feeling well Abd non tender. dressings dry. hypoactive BS stable resolving ileus ambulation abd series in am possible d/c ng in am pending x-ray findings Selected Entries 07/09/16 07:50 Temperature 98.3 F Pulse Rate [ 92 H Left Radial] Respiratory 18 Rate Blood Pressure 138/82 [Left Radial Artery] Laboratory Tests 07/09/16 05:03 Sodium 142 Potassium 4.9 Chloride 93.8 L Carbon Dioxide 33 H BUN 17 Creatinine 1.0 Objective Vital Signs - 12hr 07/09/16 07/09/16 07/09/16 00:22 05:34 07:50 Temperature 97.9 F 98.3 F 98.3 F Pulse Rate [ 106 H 97 H From Monitor] Pulse Rate [ 92 H Left Radial] Respiratory 18 18 18 Rate Blood Pressure 138/82 [Left Radial Artery] Blood Pressure 136/86 122/77 [Right Arm] O2 Sat by Pulse 97 98 94 Oximetry - Labs 07/08/16 04:57 07/09/16 05:03 Diabetes panel 07/09/16 Range/Units 05:03 Sodium 142 (137-145) mmol/L Potassium 4.9 (3.6-5.0) mmol/L Chloride 93.8 L (98-107) mmol/L Carbon Dioxide 33 H (22-30) mmol/L BUN 17 (9-20) mg/dL Creatinine 1.0 (0.8-1.5) mg/dL Glucose 144 H (75-100) mg/dL Calcium 8.7 (8.4-10.2) mg/dL Calcium panel 07/09/16 Range/Units 05:03 Calcium 8.7 (8.4-10.2) mg/dL Pituitary panel 07/09/16 Range/Units 05:03 Sodium 142 (137-145) mmol/L Potassium 4.9 (3.6-5.0) mmol/L Chloride 93.8 L (98-107) mmol/L Carbon Dioxide 33 H (22-30) mmol/L BUN 17 (9-20) mg/dL Creatinine 1.0 (0.8-1.5) mg/dL Glucose 144 H (75-100) mg/dL Calcium 8.7 (8.4-10.2) mg/dL Adrenal panel 07/09/16 Range/Units 05:03 Sodium 142 (137-145) mmol/L Potassium 4.9 (3.6-5.0) mmol/L Chloride 93.8 L (98-107) mmol/L Carbon Dioxide 33 H (22-30) mmol/L BUN 17 (9-20) mg/dL Creatinine 1.0 (0.8-1.5) mg/dL Glucose 144 H (75-100) mg/dL Calcium 8.7 (8.4-10.2) mg/dL
[2016-07-09] MEDS: MORPHINE IV PRN (21:15)
[2016-07-10] MEDS: HEPARIN SUB-Q SCH ×3 (05:31→21:18)
[2016-07-10] MEDS: D5NS0.3 1,000 ML IV SCH (05:58)
[2016-07-10 06:39] LABS: Anion Gap 17 mmol/L; BUN/Creatinine Ratio 17.77; Blood Urea Nitrogen 16 mg/dL (9-20); Calcium 8.6 mg/dL (8.4-10.2); Carbon Dioxide 31 mmol/L (22-30); Chloride 85.8 mmol/L (98-107); Glucose 136 mg/dL (75-100); Sodium 131 mmol/L (137-145)
[2016-07-10] MEDS: NOVOLOG SUB-Q SCH ×4 (07:55→21:18)
--- NOTE | 2016-07-10 09:41 | XRay Report ---
Abdominal series: There are surgical closure candy over the midline. There is diffuse gaseous distention of large and small bowel loops with no air-fluid levels and no free air identified. A nasogastric tube is present in the stomach. There is atelectasis and possible small effusions at both lung bases greater on the right than left. Impressions: 1. Nonspecific bowel distention possibly secondary to postoperative ileus. 2. Bibasilar atelectasis/small effusions.
[2016-07-10] MEDS: D5NS 1,000 ML IV SCH ×2 (09:44→21:17)
[2016-07-10] MEDS: PEPCID IV SCH ×2 (09:45→21:18)
[2016-07-10] MEDS: KCL 10MEQ/100ML 10 MEQ/100 ML BAG IV SCH ×3 (09:50→13:47)
[2016-07-10] MEDS: DILAUDID IV PRN ×2 (10:11→13:52)
--- NOTE | 2016-07-10 11:32 | Progress Note ---
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 Has had 2 bowel movements. Continue NPO, iv fluids. NG tube. Again discussed with Surgeon Chest pain. Stress test negative. hypertension. BP stable. Hyponatremia. D5NS Hypokalemia. Replace iv since he is NPO Acute kidney injury, now resolved. Cr 1.0 today DVT Prophylaxis Full code status History Interval history: Patient with small bowel obstruction s/p surgery on 07/05/16 has had 2 bowel movements Hospitalist Physical - Physical exam Narrative exam: Gen: not in acute distress HEENT: normocephalic,atraumatic Neck :supple, no JVD Lungs: clear to auscultation bilaterally, no crackles no wheezes Heart: S1 and S2 regular, no murmurs no gallops, Abdomen: soft , mild tender, covered with dressing, abdominal binder, bowel sounds present Extremities: no edema, no clubbing or cyanosis Neuro: Awake alert oriented x 3 Psych: Normal mood - Constitutional Vitals: Temp Pulse Resp BP Pulse Ox 98.4 F 84 18 146/81 97 07/10/16 07:55 07/10/16 07:55 07/10/16 07:55 07/10/16 07:55 07/10/16 07:55 General appearance: Present: no acute distress, well-nourished Results - Labs CBC & Chem 7: 07/08/16 04:57 07/10/16 05:57 Labs: Laboratory Last Values WBC 7.6 K/mm3 (4.5-11.0) 07/08/16 04:57 RBC 4.46 M/mm3 (3.65-5.03) 07/08/16 04:57 Hgb 14.0 gm/dl (11.8-15.2) 07/08/16 04:57 Hct 40.9 % (35.5-45.6) 07/08/16 04:57 MCV 92 fl (84-94) 07/08/16 04:57 MCH 31 pg (28-32) 07/08/16 04:57 MCHC 34 % (32-34) 07/08/16 04:57 RDW 14.0 % (13.2-15.2) 07/08/16 04:57 Plt Count 314 K/mm3 (140-440) 07/08/16 04:57 Lymph % (Auto) 12.5 % (13.4-35.0) L 07/08/16 04:57 [place] % (Auto) 12.5 % (0.0-7.3) H 07/08/16 04:57 Eos % (Auto) 0.4 % (0.0-4.3) 07/08/16 04:57 Baso % (Auto) 0.3 % (0.0-1.8) 07/08/16 04:57 Lymph # 0.9 K/mm3 (1.2-5.4) L 07/08/16 04:57 [place] # 0.9 K/mm3 (0.0-0.8) H 07/08/16 04:57 Eos # 0.0 K/mm3 (0.0-0.4) 07/08/16 04:57 Baso # 0.0 K/mm3 (0.0-0.1) 07/08/16 04:57 Add Manual Diff Complete 07/07/16 06:05 Total Counted 100 07/07/16 06:05 Seg Neutrophils % 74.3 % (40.0-70.0) H 07/08/16 04:57 Seg Neuts % (Manual) 69.0 % (40.0-70.0) 07/07/16 06:05 Band Neutrophils % 1.0 % 07/07/16 06:05 Lymphocytes % (Manual) 13.0 % (13.4-35.0) L 07/07/16 06:05 Reactive Lymphs % (Man) 0 % 07/07/16 06:05 Monocytes % (Manual) 15.0 % (0.0-7.3) H 07/07/16 06:05 Eosinophils % (Manual) 2.0 % (0.0-4.3) 07/07/16 06:05 Basophils % (Manual) 0 % (0.0-1.8) 07/07/16 06:05 Metamyelocytes % 0 % 07/07/16 06:05 Myelocytes % 0 % 07/07/16 06:05 Promyelocytes % 0 % 07/07/16 06:05 Blast Cells % 0 % 07/07/16 06:05 Nucleated RBC % Not Reportable 07/07/16 06:05 Seg Neutrophils # 5.6 K/mm3 (1.8-7.7) 07/08/16 04:57 Seg Neutrophils # Man 3.3 K/mm3 (1.8-7.7) 07/07/16 06:05 Band Neutrophils # 0.0 K/mm3 07/07/16 06:05 Lymphocytes # (Manual) 0.6 K/mm3 (1.2-5.4) L 07/07/16 06:05 Abs React Lymphs (Man) 0.0 K/mm3 07/07/16 06:05 Monocytes # (Manual) 0.7 K/mm3 (0.0-0.8) 07/07/16 06:05 Eosinophils # (Manual) 0.1 K/mm3 (0.0-0.4) 07/07/16 06:05 Basophils # (Manual) 0.0 K/mm3 (0.0-0.1) 07/07/16 06:05 Metamyelocytes # 0.0 K/mm3 07/07/16 06:05 Myelocytes # 0.0 K/mm3 07/07/16 06:05 Promyelocytes # 0.0 K/mm3 07/07/16 06:05 Blast Cells # 0.0 K/mm3 07/07/16 06:05 WBC Morphology Not Reportable 07/07/16 06:05 Hypersegmented Neuts Not Reportable 07/07/16 06:05 Hyposegmented Neuts Not Reportable 07/07/16 06:05 Hypogranular Neuts Not Reportable 07/07/16 06:05 Smudge Cells Not Reportable 07/07/16 06:05 Toxic Granulation Not Reportable 07/07/16 06:05 Toxic Vacuolation Not Reportable 07/07/16 06:05 Dohle Bodies Not Reportable 07/07/16 06:05 Pelger-Huet Anomaly Not Reportable 07/07/16 06:05 Binh Rods Not Reportable 07/07/16 06:05 Platelet Estimate Consistent w auto 07/07/16 06:05 Clumped Platelets Not Reportable 07/07/16 06:05 Plt Clumps, EDTA Not Reportable 07/07/16 06:05 Large Platelets Not Reportable 07/07/16 06:05 Giant Platelets Not Reportable 07/07/16 06:05 Platelet Satelliting Not Reportable 07/07/16 06:05 Plt Morphology Comment Not Reportable 07/07/16 06:05 RBC Morphology Not Reportable 07/07/16 06:05 Dimorphic RBCs Not Reportable 07/07/16 06:05 Polychromasia Not Reportable 07/07/16 06:05 Hypochromasia Not Reportable 07/07/16 06:05 Poikilocytosis Not Reportable 07/07/16 06:05 Anisocytosis 1+ 07/07/16 06:05 Microcytosis Not Reportable 07/07/16 06:05 Macrocytosis Not Reportable 07/07/16 06:05 Spherocytes Not Reportable 07/07/16 06:05 Pappenheimer Bodies Not Reportable 07/07/16 06:05 Sickle Cells Not Reportable 07/07/16 06:05 Target Cells Not Reportable 07/07/16 06:05 Tear Drop Cells Not Reportable 07/07/16 06:05 Ovalocytes Not Reportable 07/07/16 06:05 Helmet Cells Not Reportable 07/07/16 06:05 Figuero[place] Bodies Not Reportable 07/07/16 06:05 [place] Rings Not Reportable 07/07/16 06:05 Melecio Cells Not Reportable 07/07/16 06:05 Bite Cells Not Reportable 07/07/16 06:05 Crenated Cell Not Reportable 07/07/16 06:05 Elliptocytes Not Reportable 07/07/16 06:05 Acanthocytes (Spur) Not Reportable 07/07/16 06:05 Rouleaux Not Reportable 07/07/16 06:05 Hemoglobin C Crystals Not Reportable 07/07/16 06:05 Schistocytes Not Reportable 07/07/16 06:05 Malaria parasites Not Reportable 07/07/16 06:05 Kristofer Bodies Not Reportable 07/07/16 06:05 Hem Pathologist Commnt No 07/07/16 06:05 PT 13.2 Sec. (12.2-14.9) 07/01/16 09:41 INR 1.01 (0.87-1.13) 07/01/16 09:41 Sodium 131 mmol/L (137-145) L D 07/10/16 05:57 Potassium 3.0 mmol/L (3.6-5.0) L D 07/10/16 05:57 Chloride 85.8 mmol/L (98-107) L 07/10/16 05:57 Carbon Dioxide 31 mmol/L (22-30) H 07/10/16 05:57 Anion Gap 17 mmol/L 07/10/16 05:57 BUN 16 mg/dL (9-20) 07/10/16 05:57 Creatinine 0.9 mg/dL (0.8-1.5) 07/10/16 05:57 Estimated GFR > 60 ml/min 07/10/16 05:57 BUN/Creatinine Ratio 17.77 % 07/10/16 05:57 Glucose 136 mg/dL (75-100) H 07/10/16 05:57 POC Glucose 102 (70-105) 07/09/16 20:18 Hemoglobin A1c 6.4 % (4-6) H 07/03/16 05:07 Calcium 8.6 mg/dL (8.4-10.2) 07/10/16 05:57 Phosphorus 4.3 mg/dL (2.5-4.5) 07/03/16 05:07 Magnesium 2.3 mg/dL (1.7-2.3) 07/03/16 05:07 Total Bilirubin 0.6 mg/dL (0.1-1.2) 07/07/16 06:05 AST 24 units/L (5-40) 07/07/16 06:05 ALT 42 units/L (7-56) 07/07/16 06:05 Alkaline Phosphatase 82 units/L (35-129) 07/07/16 06:05 Total Creatine Kinase 80 units/L (55-170) 07/01/16 23:32 CK-MB (CK-2) 4.7 ng/mL (0.0-4.0) H 07/01/16 23:32 CK-MB (CK-2) Rel Index 5.8 (0-4) H 07/01/16 23:32 Troponin T < 0.010 ng/mL (0.00-0.029) 07/01/16 23:32 NT-Pro-B Natriuret Pep 246.7 pg/mL (0-900) 07/01/16 15:57 Total Protein 6.3 g/dL (6.3-8.2) 07/07/16 06:05 Albumin 3.1 g/dL (3.9-5) L 07/07/16 06:05 Albumin/Globulin Ratio 1.0 % 07/07/16 06:05 Amylase 22 units/L (27-131) L 07/02/16 16:16 Lipase 21 units/L (13-60) 07/02/16 16:16
[2016-07-10] MEDS ORDERED: PNEUMOVAX 23 IM ONE (12:01)
--- NOTE | 2016-07-10 13:09 | Progress Note ---
Assessment and Plan Pt feeling well. Another BM today Abd soft. stable electrolyte imbalance d/c ng keep npo fluid & electrolyte correction continue present care Selected Entries 07/10/16 07:55 Temperature 98.4 F Pulse Rate [ 84 Left Radial] Respiratory 18 Rate Blood Pressure 146/81 [Left Radial Artery] Laboratory Tests 07/10/16 05:57 Sodium 131 L D Potassium 3.0 L D Chloride 85.8 L BUN 16 Creatinine 0.9 Objective Vital Signs - 12hr 07/10/16 07/10/16 07/10/16 01:16 03:30 05:54 Temperature 98.3 F 98.1 F Pulse Rate 82 Pulse Rate [ 85 86 From Monitor] Pulse Rate [ Left Radial] Respiratory 20 20 Rate Blood Pressure [Left Radial Artery] Blood Pressure 137/95 143/80 [Right Arm] O2 Sat by Pulse 100 95 Oximetry 07/10/16 07:55 Temperature 98.4 F Pulse Rate Pulse Rate [ From Monitor] Pulse Rate [ 84 Left Radial] Respiratory 18 Rate Blood Pressure 146/81 [Left Radial Artery] Blood Pressure [Right Arm] O2 Sat by Pulse 97 Oximetry - Labs 07/08/16 04:57 07/10/16 05:57 Diabetes panel 07/10/16 Range/Units 05:57 Sodium 131 L D (137-145) mmol/L Potassium 3.0 L D (3.6-5.0) mmol/L Chloride 85.8 L (98-107) mmol/L Carbon Dioxide 31 H (22-30) mmol/L BUN 16 (9-20) mg/dL Creatinine 0.9 (0.8-1.5) mg/dL Glucose 136 H (75-100) mg/dL Calcium 8.6 (8.4-10.2) mg/dL Calcium panel 07/10/16 Range/Units 05:57 Calcium 8.6 (8.4-10.2) mg/dL Pituitary panel 07/10/16 Range/Units 05:57 Sodium 131 L D (137-145) mmol/L Potassium 3.0 L D (3.6-5.0) mmol/L Chloride 85.8 L (98-107) mmol/L Carbon Dioxide 31 H (22-30) mmol/L BUN 16 (9-20) mg/dL Creatinine 0.9 (0.8-1.5) mg/dL Glucose 136 H (75-100) mg/dL Calcium 8.6 (8.4-10.2) mg/dL Adrenal panel 07/10/16 Range/Units 05:57 Sodium 131 L D (137-145) mmol/L Potassium 3.0 L D (3.6-5.0) mmol/L Chloride 85.8 L (98-107) mmol/L Carbon Dioxide 31 H (22-30) mmol/L BUN 16 (9-20) mg/dL Creatinine 0.9 (0.8-1.5) mg/dL Glucose 136 H (75-100) mg/dL Calcium 8.6 (8.4-10.2) mg/dL
[2016-07-11] MEDS: HEPARIN SUB-Q SCH ×3 (06:05→21:12)
[2016-07-11 07:05] LABS: Anion Gap 21 mmol/L; Blood Urea Nitrogen 12 mg/dL (9-20); Calcium 8.2 mg/dL (8.4-10.2); Carbon Dioxide 26 mmol/L (22-30); Glucose 110 mg/dL (75-100); Potassium 3.8 mmol/L (3.6-5.0); Sodium 137 mmol/L (137-145)
[2016-07-11] MEDS: PEPCID IV SCH ×2 (09:53→21:12)
[2016-07-11] MEDS: NOVOLOG SUB-Q SCH ×4 (09:54→22:01)
--- NOTE | 2016-07-11 09:58 | Progress Note ---
Assessment and Plan POD #5 Pt feeling well. + BM today Abd non tender but still hyperresonant hypoactive BS electrolytes improved keep npo except ice chips and alessandra ambulation Abd series today Selected Entries 07/11/16 07/11/16 00:33 08:00 Temperature 98.7 F Pulse Rate [ 84 From Monitor] Respiratory 18 Rate Blood Pressure 140/77 [Right Arm] Laboratory Tests 07/11/16 05:00 Sodium 137 Chloride 94.0 L BUN 12 Creatinine 0.8 Objective Vital Signs - 12hr 07/10/16 07/11/16 07/11/16 22:00 00:33 06:53 Temperature 97.7 F 98.1 F Pulse Rate 87 Pulse Rate [ 84 87 From Monitor] Respiratory 18 20 Rate Blood Pressure 142/70 131/71 [Right Arm] O2 Sat by Pulse 95 98 Oximetry 07/11/16 07/11/16 08:00 08:52 Temperature 98.7 F Pulse Rate 84 Pulse Rate [ 84 From Monitor] Respiratory 20 Rate Blood Pressure 140/77 [Right Arm] O2 Sat by Pulse 94 Oximetry - Labs 07/08/16 04:57 07/11/16 05:00 Diabetes panel 07/11/16 Range/Units 05:00 Sodium 137 (137-145) mmol/L Potassium 3.8 D (3.6-5.0) mmol/L Chloride 94.0 L (98-107) mmol/L Carbon Dioxide 26 (22-30) mmol/L BUN 12 (9-20) mg/dL Creatinine 0.8 (0.8-1.5) mg/dL Glucose 110 H (75-100) mg/dL Calcium 8.2 L (8.4-10.2) mg/dL Calcium panel 07/11/16 Range/Units 05:00 Calcium 8.2 L (8.4-10.2) mg/dL Pituitary panel 07/11/16 Range/Units 05:00 Sodium 137 (137-145) mmol/L Potassium 3.8 D (3.6-5.0) mmol/L Chloride 94.0 L (98-107) mmol/L Carbon Dioxide 26 (22-30) mmol/L BUN 12 (9-20) mg/dL Creatinine 0.8 (0.8-1.5) mg/dL Glucose 110 H (75-100) mg/dL Calcium 8.2 L (8.4-10.2) mg/dL Adrenal panel 07/11/16 Range/Units 05:00 Sodium 137 (137-145) mmol/L Potassium 3.8 D (3.6-5.0) mmol/L Chloride 94.0 L (98-107) mmol/L Carbon Dioxide 26 (22-30) mmol/L BUN 12 (9-20) mg/dL Creatinine 0.8 (0.8-1.5) mg/dL Glucose 110 H (75-100) mg/dL Calcium 8.2 L (8.4-10.2) mg/dL
--- NOTE | 2016-07-11 11:07 | XRay Report ---
Abdomen series: Compared to 07/10/16. History post small bowel obstruction. Findings: Right basilar atelectasis with right pleural effusion. No free intraperitoneal air. Moderate amount of air in small and large bowel with multiple air-fluid levels in small bowel. No wall thickening. No radiopaque calculus or abnormal calcification. Impression: Incomplete small bowel obstruction or ileus.
[2016-07-11] MEDS: D5NS 1,000 ML IV SCH ×2 (21:11→22:00)
--- NOTE | 2016-07-12 02:38 | Progress Note ---
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 Has had 2 bowel movements. Continue NPO, iv fluids. NG tube removed but keep NPO as per surgery because of ileus. Again discussed with Surgeon Chest pain. Stress test negative. hypertension. BP stable. Hyponatremia. Continue D5NS iv fluid. Hypokalemia. Potassium 3.8 today Acute kidney injury, now resolved. Cr 0.8 today DVT Prophylaxis with SCDs Full code status History Interval history: Patient with small bowel obstruction s/p surgery on 07/05/16 has had 2 bowel movements Hospitalist Physical - Physical exam Narrative exam: Gen: not in acute distress HEENT: normocephalic,atraumatic Neck :supple, no JVD Lungs: clear to auscultation bilaterally, no crackles no wheezes Heart: S1 and S2 regular, no murmurs no gallops, Abdomen: soft , mild tenderness, mild distension, covered with dressing, abdominal binder, bowel sounds present Extremities: no edema, no clubbing or cyanosis Neuro: Awake alert oriented x 3 Psych: Normal mood - Constitutional Vitals: Temp Pulse Resp BP Pulse Ox 98.7 F 79 18 151/73 96 07/12/16 01:14 07/12/16 01:14 07/12/16 01:14 07/12/16 01:14 07/12/16 01:14 General appearance: Present: no acute distress, well-nourished Results - Labs CBC & Chem 7: 07/08/16 04:57 07/12/16 05:13 Labs: Laboratory Last Values WBC 7.6 K/mm3 (4.5-11.0) 07/08/16 04:57 RBC 4.46 M/mm3 (3.65-5.03) 07/08/16 04:57 Hgb 14.0 gm/dl (11.8-15.2) 07/08/16 04:57 Hct 40.9 % (35.5-45.6) 07/08/16 04:57 MCV 92 fl (84-94) 07/08/16 04:57 MCH 31 pg (28-32) 07/08/16 04:57 MCHC 34 % (32-34) 07/08/16 04:57 RDW 14.0 % (13.2-15.2) 07/08/16 04:57 Plt Count 314 K/mm3 (140-440) 07/08/16 04:57 Lymph % (Auto) 12.5 % (13.4-35.0) L 07/08/16 04:57 [place] % (Auto) 12.5 % (0.0-7.3) H 07/08/16 04:57 Eos % (Auto) 0.4 % (0.0-4.3) 07/08/16 04:57 Baso % (Auto) 0.3 % (0.0-1.8) 07/08/16 04:57 Lymph # 0.9 K/mm3 (1.2-5.4) L 07/08/16 04:57 [place] # 0.9 K/mm3 (0.0-0.8) H 07/08/16 04:57 Eos # 0.0 K/mm3 (0.0-0.4) 07/08/16 04:57 Baso # 0.0 K/mm3 (0.0-0.1) 07/08/16 04:57 Add Manual Diff Complete 07/07/16 06:05 Total Counted 100 07/07/16 06:05 Seg Neutrophils % 74.3 % (40.0-70.0) H 07/08/16 04:57 Seg Neuts % (Manual) 69.0 % (40.0-70.0) 07/07/16 06:05 Band Neutrophils % 1.0 % 07/07/16 06:05 Lymphocytes % (Manual) 13.0 % (13.4-35.0) L 07/07/16 06:05 Reactive Lymphs % (Man) 0 % 07/07/16 06:05 Monocytes % (Manual) 15.0 % (0.0-7.3) H 07/07/16 06:05 Eosinophils % (Manual) 2.0 % (0.0-4.3) 07/07/16 06:05 Basophils % (Manual) 0 % (0.0-1.8) 07/07/16 06:05 Metamyelocytes % 0 % 07/07/16 06:05 Myelocytes % 0 % 07/07/16 06:05 Promyelocytes % 0 % 07/07/16 06:05 Blast Cells % 0 % 07/07/16 06:05 Nucleated RBC % Not Reportable 07/07/16 06:05 Seg Neutrophils # 5.6 K/mm3 (1.8-7.7) 07/08/16 04:57 Seg Neutrophils # Man 3.3 K/mm3 (1.8-7.7) 07/07/16 06:05 Band Neutrophils # 0.0 K/mm3 07/07/16 06:05 Lymphocytes # (Manual) 0.6 K/mm3 (1.2-5.4) L 07/07/16 06:05 Abs React Lymphs (Man) 0.0 K/mm3 07/07/16 06:05 Monocytes # (Manual) 0.7 K/mm3 (0.0-0.8) 07/07/16 06:05 Eosinophils # (Manual) 0.1 K/mm3 (0.0-0.4) 07/07/16 06:05 Basophils # (Manual) 0.0 K/mm3 (0.0-0.1) 07/07/16 06:05 Metamyelocytes # 0.0 K/mm3 07/07/16 06:05 Myelocytes # 0.0 K/mm3 07/07/16 06:05 Promyelocytes # 0.0 K/mm3 07/07/16 06:05 Blast Cells # 0.0 K/mm3 07/07/16 06:05 WBC Morphology Not Reportable 07/07/16 06:05 Hypersegmented Neuts Not Reportable 07/07/16 06:05 Hyposegmented Neuts Not Reportable 07/07/16 06:05 Hypogranular Neuts Not Reportable 07/07/16 06:05 Smudge Cells Not Reportable 07/07/16 06:05 Toxic Granulation Not Reportable 07/07/16 06:05 Toxic Vacuolation Not Reportable 07/07/16 06:05 Dohle Bodies Not Reportable 07/07/16 06:05 Pelger-Huet Anomaly Not Reportable 07/07/16 06:05 Binh Rods Not Reportable 07/07/16 06:05 Platelet Estimate Consistent w auto 07/07/16 06:05 Clumped Platelets Not Reportable 07/07/16 06:05 Plt Clumps, EDTA Not Reportable 07/07/16 06:05 Large Platelets Not Reportable 07/07/16 06:05 Giant Platelets Not Reportable 07/07/16 06:05 Platelet Satelliting Not Reportable 07/07/16 06:05 Plt Morphology Comment Not Reportable 07/07/16 06:05 RBC Morphology Not Reportable 07/07/16 06:05 Dimorphic RBCs Not Reportable 07/07/16 06:05 Polychromasia Not Reportable 07/07/16 06:05 Hypochromasia Not Reportable 07/07/16 06:05 Poikilocytosis Not Reportable 07/07/16 06:05 Anisocytosis 1+ 07/07/16 06:05 Microcytosis Not Reportable 07/07/16 06:05 Macrocytosis Not Reportable 07/07/16 06:05 Spherocytes Not Reportable 07/07/16 06:05 Pappenheimer Bodies Not Reportable 07/07/16 06:05 Sickle Cells Not Reportable 07/07/16 06:05 Target Cells Not Reportable 07/07/16 06:05 Tear Drop Cells Not Reportable 07/07/16 06:05 Ovalocytes Not Reportable 07/07/16 06:05 Helmet Cells Not Reportable 07/07/16 06:05 [place] Bodies Not Reportable 07/07/16 06:05 [place] Rings Not Reportable 07/07/16 06:05 [place] Cells Not Reportable 07/07/16 06:05 Bite Cells Not Reportable 07/07/16 06:05 Crenated Cell Not Reportable 07/07/16 06:05 Elliptocytes Not Reportable 07/07/16 06:05 Acanthocytes (Spur) Not Reportable 07/07/16 06:05 Rouleaux Not Reportable 07/07/16 06:05 Hemoglobin C Crystals Not Reportable 07/07/16 06:05 Schistocytes Not Reportable 07/07/16 06:05 Malaria parasites Not Reportable 07/07/16 06:05 Kristofer Bodies Not Reportable 07/07/16 06:05 Hem Pathologist Commnt No 07/07/16 06:05 PT 13.2 Sec. (12.2-14.9) 07/01/16 09:41 INR 1.01 (0.87-1.13) 07/01/16 09:41 Sodium 137 mmol/L (137-145) 07/11/16 05:00 Potassium 3.8 mmol/L (3.6-5.0) D 07/11/16 05:00 Chloride 94.0 mmol/L (98-107) L 07/11/16 05:00 Carbon Dioxide 26 mmol/L (22-30) 07/11/16 05:00 Anion Gap 21 mmol/L 07/11/16 05:00 BUN 12 mg/dL (9-20) 07/11/16 05:00 Creatinine 0.8 mg/dL (0.8-1.5) 07/11/16 05:00 Estimated GFR > 60 ml/min 07/11/16 05:00 BUN/Creatinine Ratio 15.00 % 07/11/16 05:00 Glucose 110 mg/dL (75-100) H 07/11/16 05:00 POC Glucose 114 (70-105) H 07/10/16 21:17 Hemoglobin A1c 6.4 % (4-6) H 07/03/16 05:07 Calcium 8.2 mg/dL (8.4-10.2) L 07/11/16 05:00 Phosphorus 4.3 mg/dL (2.5-4.5) 07/03/16 05:07 Magnesium 2.3 mg/dL (1.7-2.3) 07/03/16 05:07 Total Bilirubin 0.6 mg/dL (0.1-1.2) 07/07/16 06:05 AST 24 units/L (5-40) 07/07/16 06:05 ALT 42 units/L (7-56) 07/07/16 06:05 Alkaline Phosphatase 82 units/L (35-129) 07/07/16 06:05 Total Creatine Kinase 80 units/L (55-170) 07/01/16 23:32 CK-MB (CK-2) 4.7 ng/mL (0.0-4.0) H 07/01/16 23:32 CK-MB (CK-2) Rel Index 5.8 (0-4) H 07/01/16 23:32 Troponin T < 0.010 ng/mL (0.00-0.029) 07/01/16 23:32 NT-Pro-B Natriuret Pep 246.7 pg/mL (0-900) 07/01/16 15:57 Total Protein 6.3 g/dL (6.3-8.2) 07/07/16 06:05 Albumin 3.1 g/dL (3.9-5) L 07/07/16 06:05 Albumin/Globulin Ratio 1.0 % 07/07/16 06:05 Amylase 22 units/L (27-131) L 07/02/16 16:16 Lipase 21 units/L (13-60) 07/02/16 16:16
[2016-07-12] MEDS: HEPARIN SUB-Q SCH ×3 (06:01→21:06)
[2016-07-12] MEDS: D5NS 1,000 ML IV SCH (06:04)
[2016-07-12 08:55] LABS: Anion Gap 18 mmol/L; BUN/Creatinine Ratio 11.25; Blood Urea Nitrogen 9 mg/dL (9-20); Calcium 8.2 mg/dL (8.4-10.2); Carbon Dioxide 25 mmol/L (22-30); Glucose 133 mg/dL (75-100); Sodium 134 mmol/L (137-145)
--- NOTE | 2016-07-12 12:02 | Progress Note ---
Assessment and Plan POD # 6 Pt feeling well. Abd - 1 distention. hypoactive BS. hyperresonant hypokalemia abd series yest - minimal improvement. imp persistent ileus hypokalemia correct K dulculax supp reglan x 24 hrs repeat abd series in am Selected Entries 07/12/16 08:37 Temperature 97.6 F Pulse Rate [ 100 H Left Radial] Respiratory 20 Rate Blood Pressure 181/92 [Left Radial Artery] Laboratory Tests 07/12/16 05:13 Sodium 134 L Potassium 3.0 L D Chloride 94.0 L Carbon Dioxide 25 BUN 9 Creatinine 0.8 Objective Vital Signs - 12hr 07/12/16 07/12/16 07/12/16 01:14 05:17 08:37 Temperature 98.7 F 98.5 F 97.6 F Pulse Rate [ 79 82 From Monitor] Pulse Rate [ 100 H Left Radial] Respiratory 18 20 20 Rate Blood Pressure 181/92 [Left Radial Artery] Blood Pressure 151/73 152/76 [Right Arm] O2 Sat by Pulse 96 96 95 Oximetry - Labs 07/08/16 04:57 07/12/16 05:13 Diabetes panel 07/12/16 Range/Units 05:13 Sodium 134 L (137-145) mmol/L Potassium 3.0 L D (3.6-5.0) mmol/L Chloride 94.0 L (98-107) mmol/L Carbon Dioxide 25 (22-30) mmol/L BUN 9 (9-20) mg/dL Creatinine 0.8 (0.8-1.5) mg/dL Glucose 133 H (75-100) mg/dL Calcium 8.2 L (8.4-10.2) mg/dL Calcium panel 07/12/16 Range/Units 05:13 Calcium 8.2 L (8.4-10.2) mg/dL Pituitary panel 07/12/16 Range/Units 05:13 Sodium 134 L (137-145) mmol/L Potassium 3.0 L D (3.6-5.0) mmol/L Chloride 94.0 L (98-107) mmol/L Carbon Dioxide 25 (22-30) mmol/L BUN 9 (9-20) mg/dL Creatinine 0.8 (0.8-1.5) mg/dL Glucose 133 H (75-100) mg/dL Calcium 8.2 L (8.4-10.2) mg/dL Adrenal panel 07/12/16 Range/Units 05:13 Sodium 134 L (137-145) mmol/L Potassium 3.0 L D (3.6-5.0) mmol/L Chloride 94.0 L (98-107) mmol/L Carbon Dioxide 25 (22-30) mmol/L BUN 9 (9-20) mg/dL Creatinine 0.8 (0.8-1.5) mg/dL Glucose 133 H (75-100) mg/dL Calcium 8.2 L (8.4-10.2) mg/dL
[2016-07-12] MEDS: KCL 10MEQ/100ML 10 MEQ/100 ML BAG IV SCH ×4 (12:09→20:00)
[2016-07-12] MEDS: PEPCID IV SCH ×2 (12:09→21:06)
[2016-07-12] MEDS ORDERED: DULCOLAX PR ONE (13:00)
[2016-07-12] MEDS: REGLAN IV SCH ×2 (13:19→20:02)
--- NOTE | 2016-07-12 18:29 | Progress Note ---
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 Has had 2 bowel movements. Continue NPO, iv fluids. NG tube removed but keep NPO as per surgery because of ileus. I discussed with Surgeon, Dr. Mayberry. Ileus. conservative management. Chest pain. Stress test negative. hypertension. BP stable. Hyponatremia. Continue D5NS iv fluid. Hypokalemia. Potassium 3.0 today. Replace and check Acute kidney injury, now resolved. DVT Prophylaxis with SCDs Full code status History Interval history: Patient with small bowel obstruction s/p surgery on 07/05/16 has had 2 bowel movements Hospitalist Physical - Physical exam Narrative exam: Gen: not in acute distress HEENT: normocephalic,atraumatic Neck :supple, no JVD Lungs: clear to auscultation bilaterally, no crackles no wheezes Heart: S1 and S2 regular, no murmurs no gallops, Abdomen: soft , mild tenderness, mild distension, covered with dressing, abdominal binder, bowel sounds present Extremities: no edema, no clubbing or cyanosis Neuro: Awake alert oriented x 3 Psych: Normal mood - Constitutional Vitals: Temp Pulse Resp BP Pulse Ox 97.8 F 87 18 163/77 95 07/12/16 13:44 07/12/16 16:44 07/12/16 13:44 07/12/16 13:44 07/12/16 13:44 General appearance: Present: no acute distress, well-nourished Results - Labs CBC & Chem 7: 07/08/16 04:57 07/13/16 08:05 Labs: Laboratory Last Values WBC 7.6 K/mm3 (4.5-11.0) 07/08/16 04:57 RBC 4.46 M/mm3 (3.65-5.03) 07/08/16 04:57 Hgb 14.0 gm/dl (11.8-15.2) 07/08/16 04:57 Hct 40.9 % (35.5-45.6) 07/08/16 04:57 MCV 92 fl (84-94) 07/08/16 04:57 MCH 31 pg (28-32) 07/08/16 04:57 MCHC 34 % (32-34) 07/08/16 04:57 RDW 14.0 % (13.2-15.2) 07/08/16 04:57 Plt Count 314 K/mm3 (140-440) 07/08/16 04:57 Lymph % (Auto) 12.5 % (13.4-35.0) L 07/08/16 04:57 [place] % (Auto) 12.5 % (0.0-7.3) H 07/08/16 04:57 Eos % (Auto) 0.4 % (0.0-4.3) 07/08/16 04:57 Baso % (Auto) 0.3 % (0.0-1.8) 07/08/16 04:57 Lymph # 0.9 K/mm3 (1.2-5.4) L 07/08/16 04:57 [place] # 0.9 K/mm3 (0.0-0.8) H 07/08/16 04:57 Eos # 0.0 K/mm3 (0.0-0.4) 07/08/16 04:57 Baso # 0.0 K/mm3 (0.0-0.1) 07/08/16 04:57 Add Manual Diff Complete 07/07/16 06:05 Total Counted 100 07/07/16 06:05 Seg Neutrophils % 74.3 % (40.0-70.0) H 07/08/16 04:57 Seg Neuts % (Manual) 69.0 % (40.0-70.0) 07/07/16 06:05 Band Neutrophils % 1.0 % 07/07/16 06:05 Lymphocytes % (Manual) 13.0 % (13.4-35.0) L 07/07/16 06:05 Reactive Lymphs % (Man) 0 % 07/07/16 06:05 Monocytes % (Manual) 15.0 % (0.0-7.3) H 07/07/16 06:05 Eosinophils % (Manual) 2.0 % (0.0-4.3) 07/07/16 06:05 Basophils % (Manual) 0 % (0.0-1.8) 07/07/16 06:05 Metamyelocytes % 0 % 07/07/16 06:05 Myelocytes % 0 % 07/07/16 06:05 Promyelocytes % 0 % 07/07/16 06:05 Blast Cells % 0 % 07/07/16 06:05 Nucleated RBC % Not Reportable 07/07/16 06:05 Seg Neutrophils # 5.6 K/mm3 (1.8-7.7) 07/08/16 04:57 Seg Neutrophils # Man 3.3 K/mm3 (1.8-7.7) 07/07/16 06:05 Band Neutrophils # 0.0 K/mm3 07/07/16 06:05 Lymphocytes # (Manual) 0.6 K/mm3 (1.2-5.4) L 07/07/16 06:05 Abs React Lymphs (Man) 0.0 K/mm3 07/07/16 06:05 Monocytes # (Manual) 0.7 K/mm3 (0.0-0.8) 07/07/16 06:05 Eosinophils # (Manual) 0.1 K/mm3 (0.0-0.4) 07/07/16 06:05 Basophils # (Manual) 0.0 K/mm3 (0.0-0.1) 07/07/16 06:05 Metamyelocytes # 0.0 K/mm3 07/07/16 06:05 Myelocytes # 0.0 K/mm3 07/07/16 06:05 Promyelocytes # 0.0 K/mm3 07/07/16 06:05 Blast Cells # 0.0 K/mm3 07/07/16 06:05 WBC Morphology Not Reportable 07/07/16 06:05 Hypersegmented Neuts Not Reportable 07/07/16 06:05 Hyposegmented Neuts Not Reportable 07/07/16 06:05 Hypogranular Neuts Not Reportable 07/07/16 06:05 Smudge Cells Not Reportable 07/07/16 06:05 Toxic Granulation Not Reportable 07/07/16 06:05 Toxic Vacuolation Not Reportable 07/07/16 06:05 Dohle Bodies Not Reportable 07/07/16 06:05 Pelger-Huet Anomaly Not Reportable 07/07/16 06:05 Binh Rods Not Reportable 07/07/16 06:05 Platelet Estimate Consistent w auto 07/07/16 06:05 Clumped Platelets Not Reportable 07/07/16 06:05 Plt Clumps, EDTA Not Reportable 07/07/16 06:05 Large Platelets Not Reportable 07/07/16 06:05 Giant Platelets Not Reportable 07/07/16 06:05 Platelet Satelliting Not Reportable 07/07/16 06:05 Plt Morphology Comment Not Reportable 07/07/16 06:05 RBC Morphology Not Reportable 07/07/16 06:05 Dimorphic RBCs Not Reportable 07/07/16 06:05 Polychromasia Not Reportable 07/07/16 06:05 Hypochromasia Not Reportable 07/07/16 06:05 Poikilocytosis Not Reportable 07/07/16 06:05 Anisocytosis 1+ 07/07/16 06:05 Microcytosis Not Reportable 07/07/16 06:05 Macrocytosis Not Reportable 07/07/16 06:05 Spherocytes Not Reportable 07/07/16 06:05 Pappenheimer Bodies Not Reportable 07/07/16 06:05 Sickle Cells Not Reportable 07/07/16 06:05 Target Cells Not Reportable 07/07/16 06:05 Tear Drop Cells Not Reportable 07/07/16 06:05 Ovalocytes Not Reportable 07/07/16 06:05 Helmet Cells Not Reportable 07/07/16 06:05 Figuero[place] Bodies Not Reportable 07/07/16 06:05 [place] Rings Not Reportable 07/07/16 06:05 [place] Cells Not Reportable 07/07/16 06:05 Bite Cells Not Reportable 07/07/16 06:05 Crenated Cell Not Reportable 07/07/16 06:05 Elliptocytes Not Reportable 07/07/16 06:05 Acanthocytes (Spur) Not Reportable 07/07/16 06:05 Rouleaux Not Reportable 07/07/16 06:05 Hemoglobin C Crystals Not Reportable 07/07/16 06:05 Schistocytes Not Reportable 07/07/16 06:05 Malaria parasites Not Reportable 07/07/16 06:05 Kristofer Bodies Not Reportable 07/07/16 06:05 Hem Pathologist Commnt No 07/07/16 06:05 PT 13.2 Sec. (12.2-14.9) 07/01/16 09:41 INR 1.01 (0.87-1.13) 07/01/16 09:41 Sodium 134 mmol/L (137-145) L 07/12/16 05:13 Potassium 3.0 mmol/L (3.6-5.0) L D 07/12/16 05:13 Chloride 94.0 mmol/L (98-107) L 07/12/16 05:13 Carbon Dioxide 25 mmol/L (22-30) 07/12/16 05:13 Anion Gap 18 mmol/L 07/12/16 05:13 BUN 9 mg/dL (9-20) 07/12/16 05:13 Creatinine 0.8 mg/dL (0.8-1.5) 07/12/16 05:13 Estimated GFR > 60 ml/min 07/12/16 05:13 BUN/Creatinine Ratio 11.25 % 07/12/16 05:13 Glucose 133 mg/dL (75-100) H 07/12/16 05:13 POC Glucose 114 (70-105) H 07/10/16 21:17 Hemoglobin A1c 6.4 % (4-6) H 07/03/16 05:07 Calcium 8.2 mg/dL (8.4-10.2) L 07/12/16 05:13 Phosphorus 4.3 mg/dL (2.5-4.5) 07/03/16 05:07 Magnesium 2.3 mg/dL (1.7-2.3) 07/03/16 05:07 Total Bilirubin 0.6 mg/dL (0.1-1.2) 07/07/16 06:05 AST 24 units/L (5-40) 07/07/16 06:05 ALT 42 units/L (7-56) 07/07/16 06:05 Alkaline Phosphatase 82 units/L (35-129) 07/07/16 06:05 Total Creatine Kinase 80 units/L (55-170) 07/01/16 23:32 CK-MB (CK-2) 4.7 ng/mL (0.0-4.0) H 07/01/16 23:32 CK-MB (CK-2) Rel Index 5.8 (0-4) H 07/01/16 23:32 Troponin T < 0.010 ng/mL (0.00-0.029) 07/01/16 23:32 NT-Pro-B Natriuret Pep 246.7 pg/mL (0-900) 07/01/16 15:57 Total Protein 6.3 g/dL (6.3-8.2) 07/07/16 06:05 Albumin 3.1 g/dL (3.9-5) L 07/07/16 06:05 Albumin/Globulin Ratio 1.0 % 07/07/16 06:05 Amylase 22 units/L (27-131) L 07/02/16 16:16 Lipase 21 units/L (13-60) 07/02/16 16:16
[2016-07-13] MEDS: REGLAN IV SCH ×4 (01:44→21:58)
[2016-07-13] MEDS: KCL 30 MEQ in D5NS 1,000 ML IV SCH ×2 (01:44→13:40)
[2016-07-13] MEDS: HEPARIN SUB-Q SCH ×3 (06:39→21:56)
[2016-07-13] MEDS: DILAUDID IV PRN (06:49)
[2016-07-13 08:46] LABS: Anion Gap 19 mmol/L; Blood Urea Nitrogen 8 mg/dL (9-20); Calcium 8.4 mg/dL (8.4-10.2); Carbon Dioxide 21 mmol/L (22-30); Chloride 100.2 mmol/L (98-107); Glucose 122 mg/dL (75-100); Potassium 3.6 mmol/L (3.6-5.0); Sodium 137 mmol/L (137-145)
[2016-07-13] MEDS: NOVOLOG SUB-Q SCH ×3 (08:58→21:58)
[2016-07-13] MEDS: PEPCID IV SCH ×2 (11:18→21:56)
--- NOTE | 2016-07-13 13:10 | Progress Note ---
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 Has had bowel movements. Continue NPO, iv fluids. NG tube removed but keep NPO as per surgery because of ileus. I discussed with Surgeon, Dr. Mayberry. patient states he wants to eat, but not safe yet. Ileus. conservative management. Chest pain. Stress test negative. hypertension. BP stable. Hyponatremia. Continue D5NS iv fluid. Hypokalemia. Improved. Potassium 3.6 today. Continue to monitor. Acute kidney injury, now resolved. DVT Prophylaxis with SCDs Full code status History Interval history: Patient with small bowel obstruction s/p surgery on 07/05/16 has had bowel movements, nausea abdominal distension Hospitalist Physical - Physical exam Narrative exam: Gen: not in acute distress HEENT: normocephalic,atraumatic Neck :supple, no JVD Lungs: clear to auscultation bilaterally, no crackles no wheezes Heart: S1 and S2 regular, no murmurs no gallops, Abdomen: soft , mild tenderness, mild distension, covered with dressing, abdominal binder, bowel sounds present Extremities: no edema, no clubbing or cyanosis Neuro: Awake alert oriented x 3 Psych: Normal mood - Constitutional Vitals: Temp Pulse Resp BP Pulse Ox 98.2 F 95 H 18 152/80 97 07/13/16 07:55 07/13/16 10:00 07/13/16 07:55 07/13/16 07:55 07/13/16 10:00 General appearance: Present: no acute distress, well-nourished Results - Labs CBC & Chem 7: 07/08/16 04:57 07/14/16 07:29 Labs: Laboratory Last Values WBC 7.6 K/mm3 (4.5-11.0) 07/08/16 04:57 RBC 4.46 M/mm3 (3.65-5.03) 07/08/16 04:57 Hgb 14.0 gm/dl (11.8-15.2) 07/08/16 04:57 Hct 40.9 % (35.5-45.6) 07/08/16 04:57 MCV 92 fl (84-94) 07/08/16 04:57 MCH 31 pg (28-32) 07/08/16 04:57 MCHC 34 % (32-34) 07/08/16 04:57 RDW 14.0 % (13.2-15.2) 07/08/16 04:57 Plt Count 314 K/mm3 (140-440) 07/08/16 04:57 Lymph % (Auto) 12.5 % (13.4-35.0) L 07/08/16 04:57 [place] % (Auto) 12.5 % (0.0-7.3) H 07/08/16 04:57 Eos % (Auto) 0.4 % (0.0-4.3) 07/08/16 04:57 Baso % (Auto) 0.3 % (0.0-1.8) 07/08/16 04:57 Lymph # 0.9 K/mm3 (1.2-5.4) L 07/08/16 04:57 [place] # 0.9 K/mm3 (0.0-0.8) H 07/08/16 04:57 Eos # 0.0 K/mm3 (0.0-0.4) 07/08/16 04:57 Baso # 0.0 K/mm3 (0.0-0.1) 07/08/16 04:57 Add Manual Diff Complete 07/07/16 06:05 Total Counted 100 07/07/16 06:05 Seg Neutrophils % 74.3 % (40.0-70.0) H 07/08/16 04:57 Seg Neuts % (Manual) 69.0 % (40.0-70.0) 07/07/16 06:05 Band Neutrophils % 1.0 % 07/07/16 06:05 Lymphocytes % (Manual) 13.0 % (13.4-35.0) L 07/07/16 06:05 Reactive Lymphs % (Man) 0 % 07/07/16 06:05 Monocytes % (Manual) 15.0 % (0.0-7.3) H 07/07/16 06:05 Eosinophils % (Manual) 2.0 % (0.0-4.3) 07/07/16 06:05 Basophils % (Manual) 0 % (0.0-1.8) 07/07/16 06:05 Metamyelocytes % 0 % 07/07/16 06:05 Myelocytes % 0 % 03/12/17 06:05 Promyelocytes % 0 % 07/07/16 06:05 Blast Cells % 0 % 07/07/16 06:05 Nucleated RBC % Not Reportable 07/07/16 06:05 Seg Neutrophils # 5.6 K/mm3 (1.8-7.7) 07/08/16 04:57 Seg Neutrophils # Man 3.3 K/mm3 (1.8-7.7) 07/07/16 06:05 Band Neutrophils # 0.0 K/mm3 07/07/16 06:05 Lymphocytes # (Manual) 0.6 K/mm3 (1.2-5.4) L 07/07/16 06:05 Abs React Lymphs (Man) 0.0 K/mm3 07/07/16 06:05 Monocytes # (Manual) 0.7 K/mm3 (0.0-0.8) 07/07/16 06:05 Eosinophils # (Manual) 0.1 K/mm3 (0.0-0.4) 07/07/16 06:05 Basophils # (Manual) 0.0 K/mm3 (0.0-0.1) 07/07/16 06:05 Metamyelocytes # 0.0 K/mm3 07/07/16 06:05 Myelocytes # 0.0 K/mm3 07/07/16 06:05 Promyelocytes # 0.0 K/mm3 07/07/16 06:05 Blast Cells # 0.0 K/mm3 07/07/16 06:05 WBC Morphology Not Reportable 07/07/16 06:05 Hypersegmented Neuts Not Reportable 07/07/16 06:05 Hyposegmented Neuts Not Reportable 07/07/16 06:05 Hypogranular Neuts Not Reportable 07/07/16 06:05 Smudge Cells Not Reportable 07/07/16 06:05 Toxic Granulation Not Reportable 07/07/16 06:05 Toxic Vacuolation Not Reportable 07/07/16 06:05 Dohle Bodies Not Reportable 07/07/16 06:05 Pelger-Huet Anomaly Not Reportable 07/07/16 06:05 Binh Rods Not Reportable 07/07/16 06:05 Platelet Estimate Consistent w auto 07/07/16 06:05 Clumped Platelets Not Reportable 07/07/16 06:05 Plt Clumps, EDTA Not Reportable 07/07/16 06:05 Large Platelets Not Reportable 07/07/16 06:05 Giant Platelets Not Reportable 07/07/16 06:05 Platelet Satelliting Not Reportable 07/07/16 06:05 Plt Morphology Comment Not Reportable 07/07/16 06:05 RBC Morphology Not Reportable 07/07/16 06:05 Dimorphic RBCs Not Reportable 07/07/16 06:05 Polychromasia Not Reportable 07/07/16 06:05 Hypochromasia Not Reportable 07/07/16 06:05 Poikilocytosis Not Reportable 07/07/16 06:05 Anisocytosis 1+ 07/07/16 06:05 Microcytosis Not Reportable 07/07/16 06:05 Macrocytosis Not Reportable 07/07/16 06:05 Spherocytes Not Reportable 07/07/16 06:05 Pappenheimer Bodies Not Reportable 07/07/16 06:05 Sickle Cells Not Reportable 07/07/16 06:05 Target Cells Not Reportable 07/07/16 06:05 Tear Drop Cells Not Reportable 07/07/16 06:05 Ovalocytes Not Reportable 07/07/16 06:05 Helmet Cells Not Reportable 07/07/16 06:05 [place] Bodies Not Reportable 07/07/16 06:05 [place] Rings Not Reportable 07/07/16 06:05 [place] Cells Not Reportable 07/07/16 06:05 Bite Cells Not Reportable 07/07/16 06:05 Crenated Cell Not Reportable 07/07/16 06:05 Elliptocytes Not Reportable 07/07/16 06:05 Acanthocytes (Spur) Not Reportable 07/07/16 06:05 Rouleaux Not Reportable 07/07/16 06:05 Hemoglobin C Crystals Not Reportable 07/07/16 06:05 Schistocytes Not Reportable 07/07/16 06:05 Malaria parasites Not Reportable 07/07/16 06:05 [place] Bodies Not Reportable 07/07/16 06:05 Hem Pathologist Commnt No 07/07/16 06:05 PT 13.2 Sec. (12.2-14.9) 07/01/16 09:41 INR 1.01 (0.87-1.13) 07/01/16 09:41 Sodium 137 mmol/L (137-145) 07/13/16 08:05 Potassium 3.6 mmol/L (3.6-5.0) 07/13/16 08:05 Chloride 100.2 mmol/L (98-107) 07/13/16 08:05 Carbon Dioxide 21 mmol/L (22-30) L 07/13/16 08:05 Anion Gap 19 mmol/L 07/13/16 08:05 BUN 8 mg/dL (9-20) L 07/13/16 08:05 Creatinine 1.0 mg/dL (0.8-1.5) 07/13/16 08:05 Estimated GFR > 60 ml/min 07/13/16 08:05 BUN/Creatinine Ratio 8.00 % 07/13/16 08:05 Glucose 122 mg/dL (75-100) H 07/13/16 08:05 POC Glucose 114 (70-105) H 07/10/16 21:17 Hemoglobin A1c 6.4 % (4-6) H 07/03/16 05:07 Calcium 8.4 mg/dL (8.4-10.2) 07/13/16 08:05 Phosphorus 4.3 mg/dL (2.5-4.5) 07/03/16 05:07 Magnesium 2.3 mg/dL (1.7-2.3) 07/03/16 05:07 Total Bilirubin 0.6 mg/dL (0.1-1.2) 07/07/16 06:05 AST 24 units/L (5-40) 07/07/16 06:05 ALT 42 units/L (7-56) 07/07/16 06:05 Alkaline Phosphatase 82 units/L (35-129) 07/07/16 06:05 Total Creatine Kinase 80 units/L (55-170) 07/01/16 23:32 CK-MB (CK-2) 4.7 ng/mL (0.0-4.0) H 07/01/16 23:32 CK-MB (CK-2) Rel Index 5.8 (0-4) H 07/01/16 23:32 Troponin T < 0.010 ng/mL (0.00-0.029) 07/01/16 23:32 NT-Pro-B Natriuret Pep 246.7 pg/mL (0-900) 07/01/16 15:57 Total Protein 6.3 g/dL (6.3-8.2) 07/07/16 06:05 Albumin 3.1 g/dL (3.9-5) L 07/07/16 06:05 Albumin/Globulin Ratio 1.0 % 07/07/16 06:05 Amylase 22 units/L (27-131) L 07/02/16 16:16 Lipase 21 units/L (13-60) 07/02/16 16:16
--- NOTE | 2016-07-13 14:06 | Progress Note ---
Assessment and Plan POD # 8 Pt status quo. no compl. positive flatus Abd still 1 plus distended. hyper resonant Abd series pending keep npo continue present care Selected Entries 07/13/16 07/13/16 07:55 10:00 Temperature 98.2 F O2 Sat by Pulse 97 Oximetry Blood Pressure 152/80 [Right Arm] Laboratory Tests 07/13/16 08:05 Sodium 137 Potassium 3.6 Chloride 100.2 Carbon Dioxide 21 L Glucose 122 H Objective Vital Signs - 12hr 07/13/16 07/13/16 07/13/16 04:00 07:55 10:00 Temperature 97.9 F 98.2 F Pulse Rate 95 H Pulse Rate [ 85 84 Right Radial] Respiratory 18 18 Rate Blood Pressure 140/78 152/80 [Right Arm] O2 Sat by Pulse 100 97 97 Oximetry - Labs 07/08/16 04:57 07/13/16 08:05 Diabetes panel 07/12/16 07/13/16 Range/Units 18:35 08:05 Sodium 137 (137-145) mmol/L Potassium 3.5 L 3.6 (3.6-5.0) mmol/L Chloride 100.2 (98-107) mmol/L Carbon Dioxide 21 L (22-30) mmol/L BUN 8 L (9-20) mg/dL Creatinine 1.0 (0.8-1.5) mg/dL Glucose 122 H (75-100) mg/dL Calcium 8.4 (8.4-10.2) mg/dL Calcium panel 07/13/16 Range/Units 08:05 Calcium 8.4 (8.4-10.2) mg/dL Pituitary panel 07/12/16 07/13/16 Range/Units 18:35 08:05 Sodium 137 (137-145) mmol/L Potassium 3.5 L 3.6 (3.6-5.0) mmol/L Chloride 100.2 (98-107) mmol/L Carbon Dioxide 21 L (22-30) mmol/L BUN 8 L (9-20) mg/dL Creatinine 1.0 (0.8-1.5) mg/dL Glucose 122 H (75-100) mg/dL Calcium 8.4 (8.4-10.2) mg/dL Adrenal panel 07/12/16 07/13/16 Range/Units 18:35 08:05 Sodium 137 (137-145) mmol/L Potassium 3.5 L 3.6 (3.6-5.0) mmol/L Chloride 100.2 (98-107) mmol/L Carbon Dioxide 21 L (22-30) mmol/L BUN 8 L (9-20) mg/dL Creatinine 1.0 (0.8-1.5) mg/dL Glucose 122 H (75-100) mg/dL Calcium 8.4 (8.4-10.2) mg/dL
[2016-07-13] MEDS: PERCOCET 5/325 PO PRN (21:57)
[2016-07-14] MEDS: KCL 30 MEQ in D5NS 1,000 ML IV SCH ×3 (00:11→22:58)
[2016-07-14] MEDS ORDERED: PROVENTIL IH PRN (04:34)
[2016-07-14] MEDS: HEPARIN SUB-Q SCH ×3 (05:11→21:40)
[2016-07-14] MEDS: NOVOLOG SUB-Q SCH ×2 (07:30→21:41)
[2016-07-14 08:02] LABS: Anion Gap 19 mmol/L; BUN/Creatinine Ratio 5.55; Blood Urea Nitrogen 5 mg/dL (9-20); Calcium 8.2 mg/dL (8.4-10.2); Carbon Dioxide 21 mmol/L (22-30); Chloride 106.1 mmol/L (98-107); Glucose 131 mg/dL (75-100); Potassium 4.4 mmol/L (3.6-5.0); Sodium 142 mmol/L (137-145)
--- NOTE | 2016-07-14 09:56 | XRay Report ---
ABDOMINAL SERIES: History: Followup small bowel obstruction. Supine and erect views of the abdomen demonstrate multiple dilated loops of small bowel containing moderate to large air-fluid levels throughout the abdomen. There appears to be normal gas in the colon. A partial small bowel obstruction pattern is suspected which has not improved since the exam 3 days ago. No free air or pathologic calcifications. Single view of the chest demonstrate a small right pleural effusion and mild bibasilar atelectasis. IMPRESSION: Partial small bowel obstruction should be considered. Small right pleural effusion and right basilar atelectasis.
[2016-07-14] MEDS: PEPCID IV SCH ×2 (10:58→21:40)
--- NOTE | 2016-07-14 13:42 | Progress Note ---
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 Has had bowel movements. Continue NPO, iv fluids. NG tube removed but keep NPO as per surgery because of ileus. I discussed with Surgeon, Dr. Mayberry. patient states he wants to eat, but not safe yet because of ileus. Repeat abd series in morning.. Ileus. conservative management. Chest pain. Stress test negative. hypertension. BP stable. Hyponatremia. Continue D5NS iv fluid. Hypokalemia. Improved. Potassium 3.6 today. Continue to monitor. Acute kidney injury, now resolved. DVT Prophylaxis with SCDs Full code status History Interval history: Patient with small bowel obstruction s/p surgery on 07/05/16 has had bowel movements, nausea still has abdominal distension Hospitalist Physical - Physical exam Narrative exam: Gen: not in acute distress HEENT: normocephalic,atraumatic Neck :supple, no JVD Lungs: clear to auscultation bilaterally, no crackles no wheezes Heart: S1 and S2 regular, no murmurs no gallops, Abdomen: soft , mild tenderness, mild distension, covered with dressing, abdominal binder, bowel sounds present Extremities: no edema, no clubbing or cyanosis Neuro: Awake alert oriented x 3, moves all extremities Psych: Normal mood - Constitutional Vitals: Temp Pulse Resp BP Pulse Ox 98.0 F 87 18 163/81 98 07/14/16 09:15 07/14/16 09:15 07/14/16 09:15 07/14/16 09:15 07/14/16 09:15 General appearance: Present: no acute distress Results - Labs CBC & Chem 7: 07/08/16 04:57 07/14/16 07:29 Labs: Laboratory Last Values WBC 7.6 K/mm3 (4.5-11.0) 07/08/16 04:57 RBC 4.46 M/mm3 (3.65-5.03) 07/08/16 04:57 Hgb 14.0 gm/dl (11.8-15.2) 07/08/16 04:57 Hct 40.9 % (35.5-45.6) 07/08/16 04:57 MCV 92 fl (84-94) 07/08/16 04:57 MCH 31 pg (28-32) 07/08/16 04:57 MCHC 34 % (32-34) 07/08/16 04:57 RDW 14.0 % (13.2-15.2) 07/08/16 04:57 Plt Count 314 K/mm3 (140-440) 07/08/16 04:57 Lymph % (Auto) 12.5 % (13.4-35.0) L 07/08/16 04:57 [place] % (Auto) 12.5 % (0.0-7.3) H 07/08/16 04:57 Eos % (Auto) 0.4 % (0.0-4.3) 07/08/16 04:57 Baso % (Auto) 0.3 % (0.0-1.8) 07/08/16 04:57 Lymph # 0.9 K/mm3 (1.2-5.4) L 07/08/16 04:57 [place] # 0.9 K/mm3 (0.0-0.8) H 07/08/16 04:57 Eos # 0.0 K/mm3 (0.0-0.4) 07/08/16 04:57 Baso # 0.0 K/mm3 (0.0-0.1) 07/08/16 04:57 Add Manual Diff Complete 07/07/16 06:05 Total Counted 100 07/07/16 06:05 Seg Neutrophils % 74.3 % (40.0-70.0) H 07/08/16 04:57 Seg Neuts % (Manual) 69.0 % (40.0-70.0) 07/07/16 06:05 Band Neutrophils % 1.0 % 07/07/16 06:05 Lymphocytes % (Manual) 13.0 % (13.4-35.0) L 07/07/16 06:05 Reactive Lymphs % (Man) 0 % 07/07/16 06:05 Monocytes % (Manual) 15.0 % (0.0-7.3) H 07/07/16 06:05 Eosinophils % (Manual) 2.0 % (0.0-4.3) 07/07/16 06:05 Basophils % (Manual) 0 % (0.0-1.8) 07/07/16 06:05 Metamyelocytes % 0 % 07/07/16 06:05 Myelocytes % 0 % 07/07/16 06:05 Promyelocytes % 0 % 07/07/16 06:05 Blast Cells % 0 % 07/07/16 06:05 Nucleated RBC % Not Reportable 07/07/16 06:05 Seg Neutrophils # 5.6 K/mm3 (1.8-7.7) 07/08/16 04:57 Seg Neutrophils # Man 3.3 K/mm3 (1.8-7.7) 07/07/16 06:05 Band Neutrophils # 0.0 K/mm3 07/07/16 06:05 Lymphocytes # (Manual) 0.6 K/mm3 (1.2-5.4) L 07/07/16 06:05 Abs React Lymphs (Man) 0.0 K/mm3 07/07/16 06:05 Monocytes # (Manual) 0.7 K/mm3 (0.0-0.8) 07/07/16 06:05 Eosinophils # (Manual) 0.1 K/mm3 (0.0-0.4) 07/07/16 06:05 Basophils # (Manual) 0.0 K/mm3 (0.0-0.1) 07/07/16 06:05 Metamyelocytes # 0.0 K/mm3 07/07/16 06:05 Myelocytes # 0.0 K/mm3 07/07/16 06:05 Promyelocytes # 0.0 K/mm3 07/07/16 06:05 Blast Cells # 0.0 K/mm3 07/07/16 06:05 WBC Morphology Not Reportable 07/07/16 06:05 Hypersegmented Neuts Not Reportable 07/07/16 06:05 Hyposegmented Neuts Not Reportable 07/07/16 06:05 Hypogranular Neuts Not Reportable 07/07/16 06:05 Smudge Cells Not Reportable 07/07/16 06:05 Toxic Granulation Not Reportable 07/07/16 06:05 Toxic Vacuolation Not Reportable 07/07/16 06:05 Dohle Bodies Not Reportable 07/07/16 06:05 Pelger-Huet Anomaly Not Reportable 07/07/16 06:05 Binh Rods Not Reportable 07/07/16 06:05 Platelet Estimate Consistent w auto 07/07/16 06:05 Clumped Platelets Not Reportable 07/07/16 06:05 Plt Clumps, EDTA Not Reportable 07/07/16 06:05 Large Platelets Not Reportable 07/07/16 06:05 Giant Platelets Not Reportable 07/07/16 06:05 Platelet Satelliting Not Reportable 07/07/16 06:05 Plt Morphology Comment Not Reportable 07/07/16 06:05 RBC Morphology Not Reportable 07/07/16 06:05 Dimorphic RBCs Not Reportable 07/07/16 06:05 Polychromasia Not Reportable 07/07/16 06:05 Hypochromasia Not Reportable 07/07/16 06:05 Poikilocytosis Not Reportable 07/07/16 06:05 Anisocytosis 1+ 07/07/16 06:05 Microcytosis Not Reportable 07/07/16 06:05 Macrocytosis Not Reportable 07/07/16 06:05 Spherocytes Not Reportable 07/07/16 06:05 Pappenheimer Bodies Not Reportable 07/07/16 06:05 Sickle Cells Not Reportable 07/07/16 06:05 Target Cells Not Reportable 07/07/16 06:05 Tear Drop Cells Not Reportable 07/07/16 06:05 Ovalocytes Not Reportable 07/07/16 06:05 Helmet Cells Not Reportable 07/07/16 06:05 [place] Bodies Not Reportable 07/07/16 06:05 [place] Rings Not Reportable 07/07/16 06:05 Melecio Cells Not Reportable 07/07/16 06:05 Bite Cells Not Reportable 07/07/16 06:05 Crenated Cell Not Reportable 07/07/16 06:05 Elliptocytes Not Reportable 07/07/16 06:05 Acanthocytes (Spur) Not Reportable 07/07/16 06:05 Rouleaux Not Reportable 07/07/16 06:05 Hemoglobin C Crystals Not Reportable 07/07/16 06:05 Schistocytes Not Reportable 07/07/16 06:05 Malaria parasites Not Reportable 07/07/16 06:05 Kristofer Bodies Not Reportable 07/07/16 06:05 Hem Pathologist Commnt No 07/07/16 06:05 PT 13.2 Sec. (12.2-14.9) 07/01/16 09:41 INR 1.01 (0.87-1.13) 07/01/16 09:41 Sodium 142 mmol/L (137-145) 07/14/16 07:29 Potassium 4.4 mmol/L (3.6-5.0) D 07/14/16 07:29 Chloride 106.1 mmol/L (98-107) 07/14/16 07:29 Carbon Dioxide 21 mmol/L (22-30) L 07/14/16 07:29 Anion Gap 19 mmol/L 07/14/16 07:29 BUN 5 mg/dL (9-20) L 07/14/16 07:29 Creatinine 0.9 mg/dL (0.8-1.5) 07/14/16 07:29 Estimated GFR > 60 ml/min 07/14/16 07:29 BUN/Creatinine Ratio 5.55 % 07/14/16 07:29 Glucose 131 mg/dL (75-100) H 07/14/16 07:29 POC Glucose 114 (70-105) H 07/10/16 21:17 Hemoglobin A1c 6.4 % (4-6) H 07/03/16 05:07 Calcium 8.2 mg/dL (8.4-10.2) L 07/14/16 07:29 Phosphorus 4.3 mg/dL (2.5-4.5) 07/03/16 05:07 Magnesium 2.3 mg/dL (1.7-2.3) 07/03/16 05:07 Total Bilirubin 0.6 mg/dL (0.1-1.2) 07/07/16 06:05 AST 24 units/L (5-40) 07/07/16 06:05 ALT 42 units/L (7-56) 07/07/16 06:05 Alkaline Phosphatase 82 units/L (35-129) 07/07/16 06:05 Total Creatine Kinase 80 units/L (55-170) 07/01/16 23:32 CK-MB (CK-2) 4.7 ng/mL (0.0-4.0) H 07/01/16 23:32 CK-MB (CK-2) Rel Index 5.8 (0-4) H 07/01/16 23:32 Troponin T < 0.010 ng/mL (0.00-0.029) 07/01/16 23:32 NT-Pro-B Natriuret Pep 246.7 pg/mL (0-900) 07/01/16 15:57 Total Protein 6.3 g/dL (6.3-8.2) 07/07/16 06:05 Albumin 3.1 g/dL (3.9-5) L 07/07/16 06:05 Albumin/Globulin Ratio 1.0 % 07/07/16 06:05 Amylase 22 units/L (27-131) L 07/02/16 16:16 Lipase 21 units/L (13-60) 07/02/16 16:16
[2016-07-14] MEDS: PERCOCET 5/325 PO PRN (21:40)
[2016-07-15] MEDS: HEPARIN SUB-Q SCH ×2 (05:03→21:08)
[2016-07-15 05:57] LABS: Hematocrit 36.9 % (35.5-45.6); Hemoglobin 12.4 gm/dl (11.8-15.2); Mean Corpuscular HGB Conc 34 % (32-34); Mean Corpuscular Hemoglobin 31 pg (28-32); Mean Corpuscular Volume 93 fl (84-94); Platelet Count 301 K/mm3 (140-440); Red Blood Count 3.99 M/mm3 (3.65-5.03); Red Cell Distribution Width 14.3 % (13.2-15.2); White Blood Count 3.5 K/mm3 (4.5-11.0)
[2016-07-15 06:18] LABS: Anion Gap 19 mmol/L; Blood Urea Nitrogen 4 mg/dL (9-20); Calcium 8.4 mg/dL (8.4-10.2); Carbon Dioxide 17 mmol/L (22-30); Chloride 106.6 mmol/L (98-107); Glucose 128 mg/dL (75-100); Potassium 4.3 mmol/L (3.6-5.0); Sodium 138 mmol/L (137-145)
--- NOTE | 2016-07-15 10:24 | Progress Note ---
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 Has had bowel movements. Continue NPO , iv fluids. NG tube removed but still NPO as per surgery because of ileus. I discussed with Surgeon, Dr. Mayberry. Patient has been requesting food for days.To start clear liquid today . Ileus. conservative management. Chest pain. Stress test negative. hypertension. BP stable. Hyponatremia. Continue D5NS iv fluid. Hypokalemia. Improved. Potassium 4.3 today. He is on Potassium containin iv fluid. may need to change if hyperkalemia. Continue to monitor. Acute kidney injury, now resolved. DVT Prophylaxis with SCDs Full code status History Interval history: Patient with small bowel obstruction s/p surgery on 07/05/16 has had bowel movements, nausea hungry still has abdominal distension Hospitalist Physical - Physical exam Narrative exam: Gen: not in acute distress HEENT: normocephalic,atraumatic Neck :supple, no JVD Lungs: clear to auscultation bilaterally, no crackles no wheezes Heart: S1 and S2 regular, no murmurs no gallops, Abdomen: soft , mild tenderness, mild distension, covered with dressing, abdominal binder, bowel sounds present Extremities: no edema, no clubbing or cyanosis Neuro: Awake alert oriented x 3, moves all extremities Psych: Normal mood - Constitutional Vitals: Temp Pulse Resp BP Pulse Ox 97.8 F 82 20 172/78 98 07/15/16 07:51 07/15/16 07:51 07/15/16 07:51 07/15/16 07:51 07/15/16 07:51 General appearance: Present: no acute distress Results - Labs CBC & Chem 7: 07/15/16 05:39 07/16/16 05:24 Labs: Laboratory Last Values WBC 3.5 K/mm3 (4.5-11.0) L 07/15/16 05:39 RBC 3.99 M/mm3 (3.65-5.03) 07/15/16 05:39 Hgb 12.4 gm/dl (11.8-15.2) 07/15/16 05:39 Hct 36.9 % (35.5-45.6) 07/15/16 05:39 MCV 93 fl (84-94) 07/15/16 05:39 MCH 31 pg (28-32) 07/15/16 05:39 MCHC 34 % (32-34) 07/15/16 05:39 RDW 14.3 % (13.2-15.2) 07/15/16 05:39 Plt Count 301 K/mm3 (140-440) 07/15/16 05:39 Lymph % (Auto) 12.5 % (13.4-35.0) L 07/08/16 04:57 [place] % (Auto) 12.5 % (0.0-7.3) H 07/08/16 04:57 Eos % (Auto) 0.4 % (0.0-4.3) 07/08/16 04:57 Baso % (Auto) 0.3 % (0.0-1.8) 07/08/16 04:57 Lymph # 0.9 K/mm3 (1.2-5.4) L 07/08/16 04:57 [place] # 0.9 K/mm3 (0.0-0.8) H 07/08/16 04:57 Eos # 0.0 K/mm3 (0.0-0.4) 07/08/16 04:57 Baso # 0.0 K/mm3 (0.0-0.1) 07/08/16 04:57 Add Manual Diff Complete 07/07/16 06:05 Total Counted 100 07/07/16 06:05 Seg Neutrophils % 74.3 % (40.0-70.0) H 07/08/16 04:57 Seg Neuts % (Manual) 69.0 % (40.0-70.0) 07/07/16 06:05 Band Neutrophils % 1.0 % 07/07/16 06:05 Lymphocytes % (Manual) 13.0 % (13.4-35.0) L 07/07/16 06:05 Reactive Lymphs % (Man) 0 % 07/07/16 06:05 Monocytes % (Manual) 15.0 % (0.0-7.3) H 07/07/16 06:05 Eosinophils % (Manual) 2.0 % (0.0-4.3) 07/07/16 06:05 Basophils % (Manual) 0 % (0.0-1.8) 07/07/16 06:05 Metamyelocytes % 0 % 07/07/16 06:05 Myelocytes % 0 % 07/07/16 06:05 Promyelocytes % 0 % 07/07/16 06:05 Blast Cells % 0 % 07/07/16 06:05 Nucleated RBC % Not Reportable 07/07/16 06:05 Seg Neutrophils # 5.6 K/mm3 (1.8-7.7) 07/08/16 04:57 Seg Neutrophils # Man 3.3 K/mm3 (1.8-7.7) 07/07/16 06:05 Band Neutrophils # 0.0 K/mm3 07/07/16 06:05 Lymphocytes # (Manual) 0.6 K/mm3 (1.2-5.4) L 07/07/16 06:05 Abs React Lymphs (Man) 0.0 K/mm3 07/07/16 06:05 Monocytes # (Manual) 0.7 K/mm3 (0.0-0.8) 07/07/16 06:05 Eosinophils # (Manual) 0.1 K/mm3 (0.0-0.4) 07/07/16 06:05 Basophils # (Manual) 0.0 K/mm3 (0.0-0.1) 07/07/16 06:05 Metamyelocytes # 0.0 K/mm3 07/07/16 06:05 Myelocytes # 0.0 K/mm3 07/07/16 06:05 Promyelocytes # 0.0 K/mm3 07/07/16 06:05 Blast Cells # 0.0 K/mm3 07/07/16 06:05 WBC Morphology Not Reportable 07/07/16 06:05 Hypersegmented Neuts Not Reportable 07/07/16 06:05 Hyposegmented Neuts Not Reportable 07/07/16 06:05 Hypogranular Neuts Not Reportable 07/07/16 06:05 Smudge Cells Not Reportable 07/07/16 06:05 Toxic Granulation Not Reportable 07/07/16 06:05 Toxic Vacuolation Not Reportable 07/07/16 06:05 Dohle Bodies Not Reportable 07/07/16 06:05 Pelger-Huet Anomaly Not Reportable 07/07/16 06:05 Binh Rods Not Reportable 07/07/16 06:05 Platelet Estimate Consistent w auto 07/07/16 06:05 Clumped Platelets Not Reportable 07/07/16 06:05 Plt Clumps, EDTA Not Reportable 07/07/16 06:05 Large Platelets Not Reportable 07/07/16 06:05 Giant Platelets Not Reportable 07/07/16 06:05 Platelet Satelliting Not Reportable 07/07/16 06:05 Plt Morphology Comment Not Reportable 07/07/16 06:05 RBC Morphology Not Reportable 07/07/16 06:05 Dimorphic RBCs Not Reportable 07/07/16 06:05 Polychromasia Not Reportable 07/07/16 06:05 Hypochromasia Not Reportable 07/07/16 06:05 Poikilocytosis Not Reportable 07/07/16 06:05 Anisocytosis 1+ 07/07/16 06:05 Microcytosis Not Reportable 07/07/16 06:05 Macrocytosis Not Reportable 07/07/16 06:05 Spherocytes Not Reportable 07/07/16 06:05 Pappenheimer Bodies Not Reportable 07/07/16 06:05 Sickle Cells Not Reportable 07/07/16 06:05 Target Cells Not Reportable 07/07/16 06:05 Tear Drop Cells Not Reportable 07/07/16 06:05 Ovalocytes Not Reportable 07/07/16 06:05 Helmet Cells Not Reportable 07/07/16 06:05 [place] Bodies Not Reportable 07/07/16 06:05 [place] Rings Not Reportable 07/07/16 06:05 Melecio Cells Not Reportable 07/07/16 06:05 Bite Cells Not Reportable 07/07/16 06:05 Crenated Cell Not Reportable 07/07/16 06:05 Elliptocytes Not Reportable 07/07/16 06:05 Acanthocytes (Spur) Not Reportable 07/07/16 06:05 Rouleaux Not Reportable 07/07/16 06:05 Hemoglobin C Crystals Not Reportable 07/07/16 06:05 Schistocytes Not Reportable 07/07/16 06:05 Malaria parasites Not Reportable 07/07/16 06:05 Kristofer Bodies Not Reportable 07/07/16 06:05 Hem Pathologist Commnt No 07/07/16 06:05 PT 13.2 Sec. (12.2-14.9) 07/01/16 09:41 INR 1.01 (0.87-1.13) 07/01/16 09:41 Sodium 138 mmol/L (137-145) 07/15/16 05:39 Potassium 4.3 mmol/L (3.6-5.0) 07/15/16 05:39 Chloride 106.6 mmol/L (98-107) 07/15/16 05:39 Carbon Dioxide 17 mmol/L (22-30) L 07/15/16 05:39 Anion Gap 19 mmol/L 07/15/16 05:39 BUN 4 mg/dL (9-20) L 07/15/16 05:39 Creatinine 0.8 mg/dL (0.8-1.5) 07/15/16 05:39 Estimated GFR > 60 ml/min 07/15/16 05:39 BUN/Creatinine Ratio 5.00 % 07/15/16 05:39 Glucose 128 mg/dL (75-100) H 07/15/16 05:39 POC Glucose 122 (70-105) H 07/13/16 21:54 Hemoglobin A1c 6.4 % (4-6) H 07/03/16 05:07 Calcium 8.4 mg/dL (8.4-10.2) 07/15/16 05:39 Phosphorus 4.3 mg/dL (2.5-4.5) 07/03/16 05:07 Magnesium 2.0 mg/dL (1.7-2.3) 07/15/16 05:39 Total Bilirubin 0.6 mg/dL (0.1-1.2) 07/07/16 06:05 AST 24 units/L (5-40) 07/07/16 06:05 ALT 42 units/L (7-56) 07/07/16 06:05 Alkaline Phosphatase 82 units/L (35-129) 07/07/16 06:05 Total Creatine Kinase 80 units/L (55-170) 07/01/16 23:32 CK-MB (CK-2) 4.7 ng/mL (0.0-4.0) H 07/01/16 23:32 CK-MB (CK-2) Rel Index 5.8 (0-4) H 07/01/16 23:32 Troponin T < 0.010 ng/mL (0.00-0.029) 07/01/16 23:32 NT-Pro-B Natriuret Pep 246.7 pg/mL (0-900) 07/01/16 15:57 Total Protein 6.3 g/dL (6.3-8.2) 07/07/16 06:05 Albumin 3.1 g/dL (3.9-5) L 07/07/16 06:05 Albumin/Globulin Ratio 1.0 % 07/07/16 06:05 Amylase 22 units/L (27-131) L 07/02/16 16:16 Lipase 21 units/L (13-60) 07/02/16 16:16
--- NOTE | 2016-07-15 10:28 | Progress Note ---
Assessment and Plan Pt feeling well. Had "large BM" this am Abd decreased distention. non tender Abd series - slight improvement (but still present). gas noted in rectum willl attempt cl liq non carbonated monitor clinically Selected Entries 07/15/16 07/15/16 05:54 07:51 Temperature 97.5 F L Pulse Rate [ 82 Left Radial] Respiratory 20 Rate Blood Pressure 172/78 [Left Radial Artery] Laboratory Tests 07/15/16 07/15/16 05:39 05:39 WBC 3.5 L Hgb 12.4 Hct 36.9 Sodium 138 Potassium 4.3 Chloride 106.6 Carbon Dioxide 17 L Anion Gap 19 BUN 4 L Creatinine 0.8 Objective Vital Signs - 12hr 07/15/16 07/15/16 07/15/16 00:36 05:54 07:51 Temperature 97.5 F L 97.5 F L 97.8 F Pulse Rate [ 82 Left Radial] Pulse Rate [ 73 76 Right Radial] Respiratory 20 20 20 Rate Blood Pressure 140/81 172/78 [Left Radial Artery] Blood Pressure 140/81 181/83 [Right Arm] O2 Sat by Pulse 97 95 98 Oximetry - Labs 07/15/16 05:39 07/15/16 05:39 Diabetes panel 07/15/16 Range/Units 05:39 Sodium 138 (137-145) mmol/L Potassium 4.3 (3.6-5.0) mmol/L Chloride 106.6 (98-107) mmol/L Carbon Dioxide 17 L (22-30) mmol/L BUN 4 L (9-20) mg/dL Creatinine 0.8 (0.8-1.5) mg/dL Glucose 128 H (75-100) mg/dL Calcium 8.4 (8.4-10.2) mg/dL Calcium panel 07/15/16 Range/Units 05:39 Calcium 8.4 (8.4-10.2) mg/dL Pituitary panel 07/15/16 Range/Units 05:39 Sodium 138 (137-145) mmol/L Potassium 4.3 (3.6-5.0) mmol/L Chloride 106.6 (98-107) mmol/L Carbon Dioxide 17 L (22-30) mmol/L BUN 4 L (9-20) mg/dL Creatinine 0.8 (0.8-1.5) mg/dL Glucose 128 H (75-100) mg/dL Calcium 8.4 (8.4-10.2) mg/dL Adrenal panel 07/15/16 Range/Units 05:39 Sodium 138 (137-145) mmol/L Potassium 4.3 (3.6-5.0) mmol/L Chloride 106.6 (98-107) mmol/L Carbon Dioxide 17 L (22-30) mmol/L BUN 4 L (9-20) mg/dL Creatinine 0.8 (0.8-1.5) mg/dL Glucose 128 H (75-100) mg/dL Calcium 8.4 (8.4-10.2) mg/dL
[2016-07-15] MEDS: KCL 30 MEQ in D5NS 1,000 ML IV SCH ×2 (11:11→21:22)
[2016-07-15] MEDS: PEPCID IV SCH ×2 (11:25→21:08)
--- NOTE | 2016-07-15 11:25 | XRay Report ---
ABDOMINAL SERIES INDICATION: Ileus. COMPARISON: Yesterday. FINDINGS: Abdominal series, 5 radiographs, again demonstrate air-containing small bowel loops throughout the abdomen with average caliber of approximately 4.5 cm. No focal suspicious calcifications, pneumatosis or pneumoperitoneum. Small colonic and rectal air may be present. Chest radiograph again demonstrates right greater than left basilar atelectatic densities and small right pleural effusion. Right hemidiaphragm is slightly elevated. Aortic knob calcifications. Normal heart size. Stable bones. CONCLUSION: 1. Stable radiographic appearance that may again represent a postoperative ileus in the given setting. Partial small bowel obstruction though not excluded. 2. Right basilar atelectasis and small right pleural effusion also again seen. Thank you for the opportunity to participate in this patient's care.
[2016-07-15] MEDS: NOVOLOG SUB-Q SCH ×2 (11:26→15:20)
[2016-07-15] MEDS: PERCOCET 5/325 PO PRN (21:07)
[2016-07-15] MEDS: NORMODYNE IV PRN (21:20)
[2016-07-16 06:16] LABS: Blood Urea Nitrogen 2 mg/dL (9-20); Calcium 8.2 mg/dL (8.4-10.2); Carbon Dioxide 15 mmol/L (22-30); Glucose 130 mg/dL (75-100)
[2016-07-16 06:17] LABS: Anion Gap 16 mmol/L; Chloride 111.6 mmol/L (98-107); Potassium 4.7 mmol/L (3.6-5.0); Sodium 138 mmol/L (137-145)
[2016-07-16] MEDS ORDERED: D5W/NS W/KCL 20MEQ 20 MEQ/1,000 ML BAG IV SCH (07:00)
[2016-07-16] MEDS: NOVOLOG SUB-Q SCH ×4 (08:09→22:36)
[2016-07-16] MEDS: HEPARIN SUB-Q SCH ×3 (08:13→22:29)
[2016-07-16] MEDS: PERCOCET 5/325 PO PRN (08:13)
[2016-07-16] MEDS: NORMODYNE IV PRN ×2 (08:14→23:34)
[2016-07-16] MEDS: PEPCID IV SCH ×2 (11:50→22:29)
--- NOTE | 2016-07-16 11:59 | Progress Note ---
Assessment and Plan Pt feeling well without compl. alicia cl liqs. "passing a lot of gas" Abd - non tender stable advance to full liq diet Selected Entries 07/16/16 08:19 Temperature 98.2 F Pulse Rate [ 80 Right Radial] Respiratory 18 Rate Blood Pressure 168/83 [Right Arm] Laboratory Tests 07/16/16 05:24 Sodium 138 Potassium 4.7 Chloride 111.6 H Carbon Dioxide 15 L BUN 2 L Creatinine 0.8 Glucose 130 H Objective Vital Signs - 12hr 07/16/16 07/16/16 07/16/16 02:10 05:40 08:13 Temperature 97.9 F 98.7 F Pulse Rate [ 72 86 From Monitor] Pulse Rate [ Right Radial] Respiratory 18 18 22 Rate Blood Pressure Blood Pressure 160/76 175/83 [Right Arm] O2 Sat by Pulse 98 97 Oximetry 07/16/16 07/16/16 08:14 08:19 Temperature 98.2 F Pulse Rate [ From Monitor] Pulse Rate [ 80 Right Radial] Respiratory 18 Rate Blood Pressure 169/82 Blood Pressure 168/83 [Right Arm] O2 Sat by Pulse 98 Oximetry - Labs 07/15/16 05:39 07/16/16 05:24 Diabetes panel 07/16/16 Range/Units 05:24 Sodium 138 (137-145) mmol/L Potassium 4.7 (3.6-5.0) mmol/L Chloride 111.6 H (98-107) mmol/L Carbon Dioxide 15 L (22-30) mmol/L BUN 2 L (9-20) mg/dL Creatinine 0.8 (0.8-1.5) mg/dL Glucose 130 H (75-100) mg/dL Calcium 8.2 L (8.4-10.2) mg/dL Calcium panel 07/16/16 Range/Units 05:24 Calcium 8.2 L (8.4-10.2) mg/dL Pituitary panel 07/16/16 Range/Units 05:24 Sodium 138 (137-145) mmol/L Potassium 4.7 (3.6-5.0) mmol/L Chloride 111.6 H (98-107) mmol/L Carbon Dioxide 15 L (22-30) mmol/L BUN 2 L (9-20) mg/dL Creatinine 0.8 (0.8-1.5) mg/dL Glucose 130 H (75-100) mg/dL Calcium 8.2 L (8.4-10.2) mg/dL Adrenal panel 07/16/16 Range/Units 05:24 Sodium 138 (137-145) mmol/L Potassium 4.7 (3.6-5.0) mmol/L Chloride 111.6 H (98-107) mmol/L Carbon Dioxide 15 L (22-30) mmol/L BUN 2 L (9-20) mg/dL Creatinine 0.8 (0.8-1.5) mg/dL Glucose 130 H (75-100) mg/dL Calcium 8.2 L (8.4-10.2) mg/dL
[2016-07-16] MEDS: MILK OF MAGNESIA PO PRN (16:06)
--- NOTE | 2016-07-16 17:28 | Progress Note ---
Assessment and Plan Assessment and plan: 71 y/o male comes in for L sided chest pain since the day before admission. Chest pain dull in nature 6/10 intensity.Non radiating.Localized to precordium. Because of her evaluation was noted to have small bowel obstruction due to internal volvulus proceeded to get exploratory lap and subsequently developed adhesions around the volvulus 07/05/2016. Patient as of today's improving is on clear liquids has lots of gas. His been advanced to full liquid and anticipate possible discharge in a day or 2. Small bowel obstruction due to internal volvulus s/p exploratory lap, adhesiolysis around volvulus on 07/05/16. Has had bowel movements. Continue advancement to full liquid diet. Anticipate discharge in there to Ileus. conservative management. Chest pain. Stress test negative. hypertension. BP stable. Hyponatremia. Resolved we'll discontinue IV fluids Metabolic acidosis-bicarbonate. A monitor. Hypokalemia. Improved. Potassium 4.3 today. He is on Potassium containin iv fluid. may need to change if hyperkalemia. Continue to monitor. Acute kidney injury, now resolved. DVT Prophylaxis with SCDs Full code status History Interval history: Patient seen and examined this morning in no acute distress reports improvement Denies any chest pain, nausea, vomiting, diarrhea No fever noted blood pressure controlled No adverse events reported to me by nursing staff Hospitalist Physical - Physical exam Narrative exam: VITAL SIGNS: Reviewed. GENERAL: The patient appeared lethargic otherwise well vital signs as documented. HEAD: No signs of head trauma. EYES: Pupils are equal. Extraocular motions intact. EARS: Hearing grossly intact. MOUTH: Oropharynx is normal. NECK: No adenopathy, no JVD. CHEST: Chest with clear breath sounds bilaterally. No wheezes, rales, or rhonchi. CARDIAC: Regular rate and rhythm. S1 and S2, without murmurs, gallops, or rubs. VASCULAR: No Edema. Peripheral pulses normal and equal in all extremities. ABDOMEN: Soft, without detectable tenderness. No sign of distention. No rebound or guarding, and no masses palpated. Bowel Sounds present MUSCULOSKELETAL: Good range of motion of all major joints. Extremities without clubbing, cyanosis or edema. NEUROLOGIC EXAM: Alert and oriented x 3. No focal sensory or strength deficits. Speech normal. Follows commands. PSYCHIATRIC: Mood normal. SKIN: No rash or lesions. - Constitutional Vitals: Temp Pulse Resp BP Pulse Ox 97.9 F 80 20 172/86 98 07/16/16 15:36 07/16/16 15:36 07/16/16 15:36 07/16/16 15:36 07/16/16 15:36 General appearance: Present: no acute distress Results - Labs CBC & Chem 7: 07/15/16 05:39 07/16/16 05:24 Labs: Laboratory Last Values WBC 3.5 K/mm3 (4.5-11.0) L 07/15/16 05:39 RBC 3.99 M/mm3 (3.65-5.03) 07/15/16 05:39 Hgb 12.4 gm/dl (11.8-15.2) 07/15/16 05:39 Hct 36.9 % (35.5-45.6) 07/15/16 05:39 MCV 93 fl (84-94) 07/15/16 05:39 MCH 31 pg (28-32) 07/15/16 05:39 MCHC 34 % (32-34) 07/15/16 05:39 RDW 14.3 % (13.2-15.2) 07/15/16 05:39 Plt Count 301 K/mm3 (140-440) 07/15/16 05:39 Lymph % (Auto) 12.5 % (13.4-35.0) L 07/08/16 04:57 Eagle % (Auto) 12.5 % (0.0-7.3) H 07/08/16 04:57 Eos % (Auto) 0.4 % (0.0-4.3) 07/08/16 04:57 Baso % (Auto) 0.3 % (0.0-1.8) 07/08/16 04:57 Lymph # 0.9 K/mm3 (1.2-5.4) L 07/08/16 04:57 Eagle # 0.9 K/mm3 (0.0-0.8) H 07/08/16 04:57 Eos # 0.0 K/mm3 (0.0-0.4) 07/08/16 04:57 Baso # 0.0 K/mm3 (0.0-0.1) 07/08/16 04:57 Add Manual Diff Complete 07/07/16 06:05 Total Counted 100 07/07/16 06:05 Seg Neutrophils % 74.3 % (40.0-70.0) H 07/08/16 04:57 Seg Neuts % (Manual) 69.0 % (40.0-70.0) 07/07/16 06:05 Band Neutrophils % 1.0 % 07/07/16 06:05 Lymphocytes % (Manual) 13.0 % (13.4-35.0) L 07/07/16 06:05 Reactive Lymphs % (Man) 0 % 07/07/16 06:05 Monocytes % (Manual) 15.0 % (0.0-7.3) H 07/07/16 06:05 Eosinophils % (Manual) 2.0 % (0.0-4.3) 07/07/16 06:05 Basophils % (Manual) 0 % (0.0-1.8) 07/07/16 06:05 Metamyelocytes % 0 % 07/07/16 06:05 Myelocytes % 0 % 07/07/16 06:05 Promyelocytes % 0 % 07/07/16 06:05 Blast Cells % 0 % 07/07/16 06:05 Nucleated RBC % Not Reportable 07/07/16 06:05 Seg Neutrophils # 5.6 K/mm3 (1.8-7.7) 07/08/16 04:57 Seg Neutrophils # Man 3.3 K/mm3 (1.8-7.7) 07/07/16 06:05 Band Neutrophils # 0.0 K/mm3 07/07/16 06:05 Lymphocytes # (Manual) 0.6 K/mm3 (1.2-5.4) L 07/07/16 06:05 Abs React Lymphs (Man) 0.0 K/mm3 07/07/16 06:05 Monocytes # (Manual) 0.7 K/mm3 (0.0-0.8) 07/07/16 06:05 Eosinophils # (Manual) 0.1 K/mm3 (0.0-0.4) 07/07/16 06:05 Basophils # (Manual) 0.0 K/mm3 (0.0-0.1) 07/07/16 06:05 Metamyelocytes # 0.0 K/mm3 07/07/16 06:05 Myelocytes # 0.0 K/mm3 07/07/16 06:05 Promyelocytes # 0.0 K/mm3 07/07/16 06:05 Blast Cells # 0.0 K/mm3 07/07/16 06:05 WBC Morphology Not Reportable 07/07/16 06:05 Hypersegmented Neuts Not Reportable 07/07/16 06:05 Hyposegmented Neuts Not Reportable 07/07/16 06:05 Hypogranular Neuts Not Reportable 07/07/16 06:05 Smudge Cells Not Reportable 07/07/16 06:05 Toxic Granulation Not Reportable 07/07/16 06:05 Toxic Vacuolation Not Reportable 07/07/16 06:05 Dohle Bodies Not Reportable 07/07/16 06:05 Pelger-Huet Anomaly Not Reportable 07/07/16 06:05 Binh Rods Not Reportable 07/07/16 06:05 Platelet Estimate Consistent w auto 07/07/16 06:05 Clumped Platelets Not Reportable 07/07/16 06:05 Plt Clumps, EDTA Not Reportable 07/07/16 06:05 Large Platelets Not Reportable 07/07/16 06:05 Giant Platelets Not Reportable 07/07/16 06:05 Platelet Satelliting Not Reportable 07/07/16 06:05 Plt Morphology Comment Not Reportable 07/07/16 06:05 RBC Morphology Not Reportable 07/07/16 06:05 Dimorphic RBCs Not Reportable 07/07/16 06:05 Polychromasia Not Reportable 07/07/16 06:05 Hypochromasia Not Reportable 07/07/16 06:05 Poikilocytosis Not Reportable 07/07/16 06:05 Anisocytosis 1+ 07/07/16 06:05 Microcytosis Not Reportable 07/07/16 06:05 Macrocytosis Not Reportable 07/07/16 06:05 Spherocytes Not Reportable 07/07/16 06:05 Pappenheimer Bodies Not Reportable 07/07/16 06:05 Sickle Cells Not Reportable 07/07/16 06:05 Target Cells Not Reportable 07/07/16 06:05 Tear Drop Cells Not Reportable 07/07/16 06:05 Ovalocytes Not Reportable 07/07/16 06:05 Helmet Cells Not Reportable 07/07/16 06:05 Figueroa-[place] Bodies Not Reportable 07/07/16 06:05 [place] Rings Not Reportable 07/07/16 06:05 Sevier Cells Not Reportable 07/07/16 06:05 Bite Cells Not Reportable 07/07/16 06:05 Crenated Cell Not Reportable 07/07/16 06:05 Elliptocytes Not Reportable 07/07/16 06:05 Acanthocytes (Spur) Not Reportable 07/07/16 06:05 Rouleaux Not Reportable 07/07/16 06:05 Hemoglobin C Crystals Not Reportable 07/07/16 06:05 Schistocytes Not Reportable 07/07/16 06:05 Malaria parasites Not Reportable 07/07/16 06:05 Kristofer Bodies Not Reportable 07/07/16 06:05 Hem Pathologist Commnt No 07/07/16 06:05 PT 13.2 Sec. (12.2-14.9) 07/01/16 09:41 INR 1.01 (0.87-1.13) 07/01/16 09:41 Sodium 138 mmol/L (137-145) 07/16/16 05:24 Potassium 4.7 mmol/L (3.6-5.0) 07/16/16 05:24 Chloride 111.6 mmol/L (98-107) H 07/16/16 05:24 Carbon Dioxide 15 mmol/L (22-30) L 07/16/16 05:24 Anion Gap 16 mmol/L 07/16/16 05:24 BUN 2 mg/dL (9-20) L 07/16/16 05:24 Creatinine 0.8 mg/dL (0.8-1.5) 07/16/16 05:24 Estimated GFR > 60 ml/min 07/16/16 05:24 BUN/Creatinine Ratio 2.50 % 07/16/16 05:24 Glucose 130 mg/dL (75-100) H 07/16/16 05:24 POC Glucose 110 (70-105) H 07/16/16 12:00 Hemoglobin A1c 6.4 % (4-6) H 07/03/16 05:07 Calcium 8.2 mg/dL (8.4-10.2) L 07/16/16 05:24 Phosphorus 4.3 mg/dL (2.5-4.5) 07/03/16 05:07 Magnesium 2.0 mg/dL (1.7-2.3) 07/15/16 05:39 Total Bilirubin 0.6 mg/dL (0.1-1.2) 07/07/16 06:05 AST 24 units/L (5-40) 07/07/16 06:05 ALT 42 units/L (7-56) 07/07/16 06:05 Alkaline Phosphatase 82 units/L (35-129) 07/07/16 06:05 Total Creatine Kinase 80 units/L (55-170) 07/01/16 23:32 CK-MB (CK-2) 4.7 ng/mL (0.0-4.0) H 07/01/16 23:32 CK-MB (CK-2) Rel Index 5.8 (0-4) H 07/01/16 23:32 Troponin T < 0.010 ng/mL (0.00-0.029) 07/01/16 23:32 NT-Pro-B Natriuret Pep 246.7 pg/mL (0-900) 07/01/16 15:57 Total Protein 6.3 g/dL (6.3-8.2) 07/07/16 06:05 Albumin 3.1 g/dL (3.9-5) L 07/07/16 06:05 Albumin/Globulin Ratio 1.0 % 07/07/16 06:05 Amylase 22 units/L (27-131) L 07/02/16 16:16 Lipase 21 units/L (13-60) 07/02/16 16:16 - Imaging and Cardiology Chest x-ray: image reviewed (mild pleural effusion) Abdominal x-ray: image reviewed (small ileus)
[2016-07-16] MEDS ORDERED: SODIUM BICARBONATE PO SCH (20:00)
[2016-07-16] MEDS ORDERED: AMBIEN PO ONE (23:20)
[2016-07-17] MEDS: HEPARIN SUB-Q SCH (06:56)
[2016-07-17 07:39] LABS: Anion Gap 20 mmol/L; Calcium 8.9 mg/dL (8.4-10.2); Carbon Dioxide 17 mmol/L (22-30); Chloride 104.7 mmol/L (98-107); Glucose 115 mg/dL (75-100); Potassium 4.4 mmol/L (3.6-5.0); Sodium 137 mmol/L (137-145)
[2016-07-17 07:50] LABS: BUN/Creatinine Ratio 1.25; Blood Urea Nitrogen < 1 mg/dL (9-20)
[2016-07-17] MEDS: NOVOLOG SUB-Q SCH (08:51)
--- NOTE | 2016-07-17 11:48 | Discharge Summary ---
Providers - Providers Date of Admission: 07/01/16 17:50 Date of discharge: 07/17/16 Attending physician: SHREYA SANDERSON MD 07/01/16 Consult to Cardiac Rehabilitation [CONS] Routine Reason For Exam: Phase I 07/02/16 14:14 Consult to Physician [CONS] Routine Consulting Provider: TREASURE MAYBERRY Reason For Exam: SBO Place consult to:: Dr. Mayberry Notified:: Vijay VENTURA Phone number called:: Was contact made?: Yes If yes, spoke with:: Bev-Office Time called:: 15:09 07/06/16 17:15 Physical Therapy Evaluation and Treat [CONS] Routine Comment: s/p abd surgery Reason For Exam: evaluation for movement Hospitalization Condition: Serious Disposition: STILL A PATIENT Exam - Constitutional Vitals: Temp Pulse Resp BP Pulse Ox 98.6 F 78 18 159/85 97 07/17/16 07:50 07/17/16 07:50 07/17/16 07:50 07/17/16 07:50 07/17/16 07:50 Plan Activity: advance as tolerated, fall precautions Diet: thickened liquids, advance as tolerated (CONTINUE LIQUIDS UNTILL SEEN BY SURGEON) Follow up with: [facility] [Other] - 3-5 Days TREASURE MAYBERRY MD [Staff Physician] - 7 Days Prescriptions: Lactose-Reduced Food [Ensure Liquid] 237 ml PO TID #30 liquid oxyCODONE /ACETAMINOPHEN [Percocet 5/325 mg] 1 tab PO Q6H PRN #20 tablet PRN Reason: Pain, Moderate (4-6) Sodium Bicarbonate 650 mg PO TID #20 tablet
[2016-07-17] MEDS: PEPCID IV SCH (11:50)
--- NOTE | 2016-07-17 13:58 | Progress Note ---
Assessment and Plan Pt feeling well without compl. alicia full liq diet. + BM's Abd still 1+ distended. non tender. surgically stable may d/c on full liq with po Ensure supplementation from surgical perspective. to call us if any N or V, abd pain developes. RTO this Mon. will advance diet at that time if pt without compl. Selected Entries 07/17/16 07:50 Temperature 98.6 F Pulse Rate [ 78 Left Radial] Respiratory 18 Rate Blood Pressure 159/85 [Left Radial Artery] Laboratory Tests 07/17/16 05:46 Sodium 137 Potassium 4.4 Chloride 104.7 Carbon Dioxide 17 L Glucose 115 H Objective Vital Signs - 12hr 07/17/16 07/17/16 06:16 07:50 Temperature 97.2 F L 98.6 F Pulse Rate [ 78 Left Radial] Pulse Rate [ 78 Right Radial] Respiratory 20 18 Rate Blood Pressure 159/85 [Left Radial Artery] Blood Pressure 129/80 [Right Arm] O2 Sat by Pulse 97 97 Oximetry - Labs 07/15/16 05:39 07/17/16 05:46 Diabetes panel 07/17/16 Range/Units 05:46 Sodium 137 (137-145) mmol/L Potassium 4.4 (3.6-5.0) mmol/L Chloride 104.7 (98-107) mmol/L Carbon Dioxide 17 L (22-30) mmol/L BUN < 1 L (9-20) mg/dL Creatinine 0.8 (0.8-1.5) mg/dL Glucose 115 H (75-100) mg/dL Calcium 8.9 (8.4-10.2) mg/dL Calcium panel 07/17/16 Range/Units 05:46 Calcium 8.9 (8.4-10.2) mg/dL Pituitary panel 07/17/16 Range/Units 05:46 Sodium 137 (137-145) mmol/L Potassium 4.4 (3.6-5.0) mmol/L Chloride 104.7 (98-107) mmol/L Carbon Dioxide 17 L (22-30) mmol/L BUN < 1 L (9-20) mg/dL Creatinine 0.8 (0.8-1.5) mg/dL Glucose 115 H (75-100) mg/dL Calcium 8.9 (8.4-10.2) mg/dL Adrenal panel 07/17/16 Range/Units 05:46 Sodium 137 (137-145) mmol/L Potassium 4.4 (3.6-5.0) mmol/L Chloride 104.7 (98-107) mmol/L Carbon Dioxide 17 L (22-30) mmol/L BUN < 1 L (9-20) mg/dL Creatinine 0.8 (0.8-1.5) mg/dL Glucose 115 H (75-100) mg/dL Calcium 8.9 (8.4-10.2) mg/dL
[2016-07-17 14:41] VITALS: BP 166/79
== END 2016-07-17 15:00 | disposition home or self-care (01) | DRG 344 ==
LOC: ED 09:12 → 4A 17:50
PROVIDERS: ADMIT Internal Medicine; ATTEND Internal Medicine
PROC: 0DSA0ZZ Reposition Jejunum, Open Approach (ICD-10-PCS; principal; 2016-07-05)
DX: K56.60 Unspecified intestinal obstruction (principal); N17.0 Acute kidney failure with tubular necrosis; E87.1 Hypo-osmolality and hyponatremia; E87.2 Acidosis; I10 Essential (primary) hypertension; K56.2 Volvulus; F17.200 Nicotine dependence, unspecified, uncomplicated; E86.0 Dehydration; E11.9 Type 2 diabetes mellitus without complications; E87.6 Hypokalemia; M94.0 Chondrocostal junction syndrome [Tietze]; K56.7 Ileus, unspecified; Z82.49 Family history of ischemic heart disease and other diseases of the circulatory system
CPT/HCPCS: 36415; 71020; 74000; 74020; 74022; 74176; 78452; 80048; 80053; 82150; 82550; 82553; 82962; 83036; 83690; 83735; 83880; 84100; 84132; 84484; 85007; 85025; 85027; 85610; 90732; 93005; 93010; 93017; 96361; 96374; 96375; A9502; C9113; G8978-GP; G8979-GP; G8980-GP; J0330; J0690; J1100; J1170; J1644; J1815; J2270; J2405; J2704; J2710; J2765; J2785; J3480; J7030; J7042; J7070